=== PATIENT | male | born 1940 | race Caucasian/White ===

== ENCOUNTER 2023-09-11 16:29 | Inpatient (IN) | payer MEDICARE, OTHER, SELFPAY ==
[2023-09-11] VITALS (9 sets, daily range): BP systolic 127–173; BP diastolic 55–101; PULSE 68–70; BMI 25.1; BMI 26.0
--- NOTE | 2023-09-11 13:00 | EDRN ---
Patient arrived from home with Palm in place for neurogenic bladder draining cloudy yellow urine. Patient stated that his Palm is due to be changed this Monday in the office. Palm changed per .
--- NOTE | 2023-09-11 13:07 | ED.GENMED ---
History of Present Illness
General
Chief Complaint: Weakness
Time Seen by Provider: 09/11/23 12:45
Travel History
Have you had any contact with someone who has COVID-19?: No
Do you have any symptoms of coronavirus? Fever > 100 degrees, chills, cough, shortness of breath, sore throat, loss of taste or smell, muscle aches, or headache?: No
History of Present Illness
History of Present Illness:
82yoM hx neurogenic bladder with chronic brunson catheter, atrial fibrillation on eliquis, previous stroke, dysphagia presenting with generalized fatigue for the past 1 week. Patient states when he got up this morning, he 'slipped out of bed' onto the
floor. Patient denies dizziness, striking his head, loss of consciousness, or injury. Patient states EMS was called who put patient back into bed. Patient states as the day went on, he noticed he felt so weak that he could not walk prompting ED
evaluation. Patient reports cough intermittently productive of sputum for the past 1 week with associated shortness of breath worse with exertion. Patient denies chest pain, fever, headache, dizziness, flank pain, or abdominal pain.
Past History
Past History
ED Past Medical History: Arrthythmia (atrial flutter/fibrillation.), CVA (2011), HTN, Hypothyroidism, Psychiatric and Other (Sleep apnea. PE, history of a mini stroke, frequent urination, diverticulosis, arthritis, appeared vision, anemia, frequent
blood transfusions, influenza)
ED Past Surgical History: Orthopedic (Total Knee surgery bilaterally), Tonsilectomy and Other (shirley filter placement; herniorrhapy)
Social History
Tobacco: Non-smoker
Alcohol: Occasional
Drug: None
Personal:
Living: with family
Employment: Retired
Family History
Family History: Other (Family history negative for coronary artery disease, arrhythmia or stroke.); Negative CAD
Phy Exam
Physical Exam
Physical Exam:
General: Alert, no acute distress
Head: NCAT
Eyes: clear conjunctiva
Neck: supple
Cardiac: regular rate, holter monitor in place
Lungs: clear to auscultation bilaterally. No wheezes, rales, or rhonchi. Speaking full unlabored sentences. No respiratory distress. Intermittently coughing during exam
Abdomen: soft, nondistended nontender. No rebound or guarding.
MSK: no lower extremity edema bilaterally. No deformity
Skin: warm, dry
: brunson catheter in place
Neuro: Alert and oriented x3. no focal deficits
Course
Orders/Labs/Results
Orders:
Orders
09/11/23 12:55
EKG [Electrocardiogram (*1)] Urgent
Reason for Study: Fatigue / Weakness
09/11/23 12:56
EKG- Treatment ONCE
09/11/23 13:04
CXR2 [CR Chest - 2 Views ] Urgent
Comment:
Reason For Exam: cough
09/11/23 13:18
CMP [Comprehensive Metabolic Panel] Urgent
Complete Blood Count/With Diff Urgent
Urinalysis Reflex To Culture Urgent
Date Specimen was Collected: 09/11/23
Time Specimen was Collected: 12:56
Urine Microscopic Reflex Cult Urgent
Urine Culture Urgent
[facility] Source: U
Specimen Description:
Date Specimen was Collected: 09/11/23
Time Specimen was Collected: 12:56
09/11/23 13:24
COVID-19 Antigen Urgent
Source: Nasal Swab
09/11/23 14:03
CefTRIAXone [Rocephin] 1,000 mg IV NOW STA
Abnormal Lab Results
09/11/23
13:18
WBC 11.1 H 10^3/uL
(4.8-10.8)
RBC 3.62 L 10^6/uL
(4.70-6.10)
Hgb 11.7 L g/dL
(13.0-18.0)
Hct 36.6 L %
(39.0-52.0)
MCV 101.1 H fL
(80.0-94.0)
MCH 32.3 H pg
(27.0-31.0)
MCHC 32.0 L g/dL
(33.0-37.0)
MPV 11.0 H fL
(7.4-10.4)
Absolute Neuts (auto) 8.8 H 10^3/uL
(1.4-6.5)
Absolute Monos (auto) 0.8 H 10^3/uL
(0.1-0.6)
Neutrophils % 79.3 H %
(42.2-75.2)
Lymphocytes % 11.8 L %
(20.5-51.1)
Glucose 117 H mg/dl
(70-99)
Urine Ketones Trace A
(Negative)
Ur Occult Blood Reflex 4+ A
(Negative)
Urine Nitrite (Reflex) Positive A
(Negative)
Urine Bilirubin 1+ A
(Negative)
Leukocyte Esterase Rfl 2+ A
(Negative)
Urine RBC 26-30 A /HPF
(0-2)
Urine WBC (Reflex) 80-90 A /HPF
(0-5)
Urine Bacteria (Reflex) Many A
(Negative)
Urine Albumin (Reflex) 1+ A
(Neg - Trace)
09/11/23 13:18
09/11/23 13:18
Vital Signs
Initial and Last Documented VS:
Initial Vital Signs
Temp Pulse Resp BP Pulse Ox
97.7 F 62 20 160/58 97
09/11/23 12:33 09/11/23 12:33 09/11/23 12:33 09/11/23 12:33 09/11/23 12:33
Last Documented Vital Signs
Temp Pulse Resp BP Pulse Ox
97.7 F 62 20 160/58 95
09/11/23 12:33 09/11/23 12:33 09/11/23 12:33 09/11/23 12:33 09/11/23 12:48
Comment
Comment:
Patient presents to the Emergency Department with __generalized weakness
Number and Complexity of Problems Addressed at the Encounter
� Chronic conditions affecting care:
� Acute Exacerbation and/or Progression of Chronic Illness:
� Differential Diagnosis includes: UTI, pneumonia, viral infection, STEMI, deconditioning
Amount and/or Complexity of Data to be Reviewed and Analyzed
� I performed an independent evaluation of and my interpretation is:
EKG: SR at 58bpm with NH 158 QTc 473 no acute ischemic changes
Xrays: CXR reviewed, no acute consolidation or focal infiltrate as read by me.
Laboratory Studies: UA consistent with urinary tract infection. WBC 11 with left shift, consistent with infection.
Other:
� Review of other/old records reveals: previous urine culture in March 2023 sensitive to ceftriaxone
� Clinical information was obtained by an independent historian:
� Prescriptions/Medications Considered but not given:
� Further testing considered but not performed:
Risk of Complications and/or Morbidity or Mortality of Patient Management
� Social Determinants of health affecting care:
� Discussion with other providers (PCP, Hospitalists, Consultants, etc):
� Escalation of care including admission/observation vs risk of discharge considered: Labs reviewed, UA consistent with UTI. WBC 11.1. Afebrile, vitals stable. On chart review, previous urine cultures sensitive to ceftriaxone. Patient and patient's
does not remember cephalexin allergy. On chart review, patient tolerated Zosyn in the past. Suspect can tolerate ceftriaxone. Shared decision making. Patient states he is so fatigued that he cannot get out of bed. Will admit for UTI, ambulatory
dysfunction. Discussed with hospitalist who accepts for admission
*Critical Care Note
Total Time (30-74mins, 75-104mins- exclusive of procedures): Not Applicable
ED Attending Note
-
Portions of this chart may have been created with voice recognition software.� Occasional wrong word or��sound alike� substitutions may have occurred due to the inherent limitations of voice recognition software.
Discharge Plan
Departure
Patient Disposition: Admit
Date of Disposition: 09/11/23
Time of Disposition: 14:50
Admit to: Med/Surg
Presentation/result/management discussed w/ accepting MD/DO: Hospitalist
Patient with high blood pressure during this ER visit?: Yes
Covid-19: Negative COVID-19
Discharge Problem:
UTI (urinary tract infection), Ambulatory dysfunction
Prescriptions:
No Action
Glucosamine Sulf-Chondroitin 1 EACH capsule
1 cap PO NOON
atorvastatin 10 MG tablet
10 mg PO HS
divalproex 500 MG tablet,delayed release (DR/EC)
1,250 mg PO QPM
[place] 3 Fish Oil 900-1,400 mg Capsule,Delayed Release(Dr/Ec)
1 cap PO NOON Qty: 0
Eliquis 5 MG tablet
5 mg PO BID
levothyroxine 75 MCG tablet
37.5 mcg PO DAILY@0700 0RF
sotalol 80 MG tablet
80 mg PO BID 0RF
vitamin B complex Tablet
1 tab PO NOON
polyethylene glycol 3350 17 gram Powder In Packet
17 g PO DAILY Qty: 0 0RF
finasteride 5 mg Tablet
5 mg PO DAILY Qty: 0 0RF
nifedipine [Nifedical XL] 30 mg Tablet Extended Release 24hr
30 mg PO DAILY
acetaminophen [Tylenol] 325 mg Tablet
650 mg PO HS
Theragen Tablet
1 tab PO NOON
Visbiome 112.5 billion cell Capsule
1 cap PO NOON
docusate sodium 100 mg capsule
100 mg PO BIDPRN PRN (Reason: constipation)
Referrals:
Maverick Yeboah MD [Family Provider] -
Interventions
Interventions:
*Risk Screen - Suicide Last Done: 09/11/23 12:33
*General Assessment Last Done: 09/11/23 12:33
*Neglect/Abuse Screening Last Done: 09/11/23 12:33
ED- Fall Risk Assessment Last Done: 09/11/23 12:48
*ED COVID-19 Vaccine History Last Done: 09/11/23 12:33
ED- Cardiac Assessment Last Done: 09/11/23 12:48
ED- Neurological Assessment Last Done: 09/11/23 12:48
ED- Pulmonary Assessment Last Done: 09/11/23 12:48
[2023-09-11 13:35] LABS: % Basophils 0.3 % (0-2); % Eosinophils 0.6 % (0-6); % Immature Granulocytes 0.4 % (0-0.5); % Lymphocytes 11.8 % (20.5-51.1); % Monocytes 7.6 % (1.7-9.3); % Neutrophils 79.3 % (42.2-75.2); Absolute Eosinophils 0.1 10^3/uL (0-0.7); Absolute Lymphocytes 1.3 10^3/uL (1.2-3.4); Absolute Monocytes 0.8 10^3/uL (0.1-0.6); Absolute Neutrophils 8.8 10^3/uL (1.4-6.5); Hematocrit 36.6 % (39.0-52.0); Hemoglobin 11.7 g/dL (13.0-18.0); Mean Corpuscular Hgb 32.3 pg (27.0-31.0); Mean Corpuscular Volume 101.1 fL (80.0-94.0); Nucleated Red Blood Cells % 0 % (-); Platelet Count 183 10^3/uL (130-400); Red Blood Cell Count 3.62 10^6/uL (4.70-6.10); Red Cell Dist. Width 12.7 % (11.5-14.5); White Blood Cell Count 11.1 10^3/uL (4.8-10.8)
[2023-09-11 13:40] LABS: Urine Albumin 1+ (Neg - Trace); Urine Bilirubin 1+ (Negative); Urine Character Very Cloudy (Clear); Urine Color Yellow; Urine Glucose Negative (Negative); Urine Ketone Trace (Negative); Urine Leukocyte 2+ (Negative); Urine Nitrite Positive (Negative); Urine Occult Blood 4+ (Negative); Urine Specific Gravity 1.015 (<1.030); Urine Urobilinogen Negative (Neg - 1+)
[2023-09-11 13:47] LABS: ALT (SGPT) 13 U/L (0-50); AST (SGOT) 21 U/L (17-59); Albumin 4.2 g/dl (3.5-5.0); Alkaline Phosphatase 53 U/L (38-126); Blood Urea Nitrogen 16 mg/dl (9-20); Calcium 9.8 mg/dl (8.4-10.2); Carbon Dioxide 29 mmol/L (22-30); Chloride 103 mmol/L (98-107); Estimated Creatinine Clearance 91 ml/min; Glucose 117 mg/dl (70-99); Potassium 3.8 mmol/L (3.5-5.1); Sodium 137 mmol/L (135-145); Total Bilirubin 0.6 mg/dl (0.2-1.3); Total Protein 7.1 g/dl (6.3-8.2); eGFR > 60.00
[2023-09-11 13:58] LABS: COVID-19 Antigen Negative (Negative)
[2023-09-11 14:18] LABS: Urine Bacteria Many (Negative); Urine Red Blood Cell 26-30 /HPF (0-2); Urine White Cell 80-90 /HPF (0-5)
[2023-09-11 14:20] LABS: Urine Urothelial Cell >30 /LPF (FEW)
[2023-09-11] MEDS: ROCEPHIN 1000 MG IV (14:55)
--- NOTE | 2023-09-11 15:32 | HPS.HSE ---
Addendum entered and electronically signed by Joseph Qureshi MD 09/11/23 17:10:
I saw and examined the patient.
The WELLNESS DIRECTOR or PA's note was reviewed and I agree with the note.
Comment: 82-year-old with past medical history neurogenic bladder with chronic Brunson cathete A-fib on Eliquis, CVA, dysphagia, hyperlipidemia, additionally anemia, PVD, neuropathy, hypertension, sleep apnea, bipolar disorder, hypothyroidism, BPH
presented for fatigue and weakness for 1 week. Patient had URI symptoms for the last week. Patient stated he got up and felt very weak and had to sit back down. Also noted some chills. Denied urinary symptoms although has chronic Brunson. Dry
cough upon presentation, respiratory rate 24, afebrile, 95% on room air, normotensive. UA noted to to be positive. X-ray with no acute cardiopulmonary process. RSV, flu negative, COVID-negative. Plan�suspect this is due to urinary infection +/-
URI. Continue antibiotics, follow-up TSH with reflex T4, IV fluids, orthostatic blood pressure
Original Note:
Family Physician
-
Family Physician: Maverick Yeboah
Chief Complaint
-
Generalized weakness
History of Present Illness
82yoM hx neurogenic bladder with chronic brunson catheter, atrial fibrillation on eliquis, previous stroke, dysphagia, hyperlipidemia, iron deficiency anemia, peripheral vascular disease, neuropathy, hypertension sleep apnea, bipolar, hypothyroidism,
BPH, presented to us with generalized fatigue and weakness for 1 week. Patient stated runny nose, congestion, cough for 1 week. Denied chest pain or short of breath. Patient stated some chills. Denied fever. Denied headache, dizziness, syncopal
episode. Patient denied abdominal pain, nausea, vomiting, diarrhea. Patient denied dysuria hematuria.
UA positive for UTI. Chest x-ray negative. Patient received a dose of ceftriaxone in ER. Admitting for further management
Medical History
Past Medical History
Past Medical History: Reports Other
Additional Past Medical History:
Hyperlipidemia
Iron deficiency anemia
Peripheral vascular disease
Chronic constipation
Neuropathy
Hypertension
Obstructive sleep apnea
Goiter
Dysphagia
Bipolar
Hypothyroidism
BPH
Embolic stroke
Urinary retention
A-fib
Depression
Overactive bladder
Past Surgical History: Reports Other
Additional Past Surgical History:
Deviated nasal Spectam surgical correction correction
Hernia repair
Cardiac ablation
IVC filter
Polypectomy
Pulmonary embolism with [place] filter
Social History
Tobacco: Non-smoker
Alcohol: None
Personal:
Living: With Family
Family History
Family History: Not pertinent
Allergies / Home Medications
Allergies reflects when Allergies were last updated in [employer].
Home Medications with original date entered in [employer]
Allergy/Medication List:
Allergies
Allergy/AdvReac Type Severity Reaction Status Date / Time
cephalexin [Cephalexin] Allergy Hives Verified 09/11/23 12:47
tamsulosin [From Flomax] Allergy lightheadness, Verified 09/11/23 12:47
low BP,
and
passing out
vancomycin Allergy Itching Verified 09/11/23 12:47
AND RASH
Home Medications
glucosamine sulfate dipotassium Cl 500 mg-chondroitin 400 mg capsule (Glucosamine Sulfate 2 KCL-Chondroitin) 1 cap PO NOON Supplement 07/16/20
atorvastatin 10 mg tablet 10 mg PO HS High cholesterol 09/25/20
divalproex 500 mg tablet,delayed release 1,250 mg PO QPM Neurological Condition 03/26/21
omega 9-iiz-btw-fish oil 900 mg-1,400 mg capsule,delayed release 1 cap PO NOON Supplement ##0 03/26/21
apixaban 5 mg tablet (Eliquis) 5 mg PO BID Blood clot prevention/tx 06/07/21
levothyroxine 75 mcg tablet 37.5 mcg PO DAILY@0700 Thyroid 06/10/21
sotalol 80 mg tablet 80 mg PO BID 07/27/21
vitamin B complex 1 tab PO NOON Supplement 06/16/22
finasteride 5 mg tablet 5 mg PO DAILY #0 tabs 06/22/22
polyethylene glycol 3350 17 gram oral powder packet 17 g PO DAILY #0 ea 06/22/22
Lactobac no.2-Bifidobac no.1-S. thermo 112.5 billion cell capsule (Visbiome) 1 cap PO NOON 09/11/23
acetaminophen 325 mg tablet (Tylenol) 650 mg PO HS 09/11/23
docusate sodium 100 mg capsule 100 mg PO BIDPRN PRN constipation 09/11/23
nifedipine 30 mg tablet,extended release 24 hr 30 mg PO DAILY 09/11/23
therapeutic multivitamin 1 tab PO NOON 09/11/23
Review of Systems
-
Constitutional: Reports No Symptoms
EENT: Reports No Symptoms and Runny Nose
Respiratory: Reports No Symptoms and Cough
Cardiac: Reports No Symptoms
Abdomen/GI: Reports No Symptoms
: Reports No Symptoms
Musculoskeletal: Reports No Symptoms
Skin: Reports No Symptoms
Neurological: Reports Weakness
Endocrine: Reports No Symptoms
Hematologic/Lymphatic: Reports No Symptoms
Psych: Reports No Symptoms
Physical Exam
Vital Signs
Vital Signs
Temp Pulse Resp BP Pulse Ox
97.7 F 62 20 160/58 95
09/11/23 12:33 09/11/23 12:33 09/11/23 12:33 09/11/23 12:33 09/11/23 12:48
Physical Exam
General: Well Developed, Well Nourished and No Apparent Distress
HEENT: NormoCephalic, Moist mucous membranes and Atraumatic
Respiratory: Clear
Cardiac: S1/S2 and Regular Rhythm; No Murmur or Rub
GI: Soft, Non Tender, Non Distended and Normal Bowel Sounds; No Organomegaly
Rectal: Deferred by Provider
Musculoskeletal: No Clubbing, No Cyanosis and No Edema
Skin: No Rash
Neuro: AO x 3 and Nonfocal/grossly intact
Psych: Calm
Laboratory Results
-
09/11/23 13:18
09/11/23 13:18
Laboratory Results
Total Bilirubin 0.6 mg/dl (0.2-1.3) 09/11/23 13:18
AST 21 U/L (17-59) 09/11/23 13:18
ALT 13 U/L (0-50) 09/11/23 13:18
Alkaline Phosphatase 53 U/L (38-126) 09/11/23 13:18
Data Reviewed
-
Diagnostic Radiology: Report Reviewed by me
Lab Data: Labs Reviewed by me
Impression/Plan
-
# Urinary tract infection
# Neurogenic bladder
# Chronic Brunson
-WBC 11.1
-UA positive for UTI
-Brunson changed in ER
-IV ceftriaxone continued
-Tylenol as needed for fever and pain
# Ambulatory dysfunction
-PT/OT consult
-orthostatics
#runny nose/nasal congestion/cough likely viral
-covid negative
-chest x ray negative
-influenza pending
-obtain RSV
-encourage IS
-Mucinex prn for COUGH
-ctm
# Anemia of chronic disease
-Hemoglobin 11.7
-No active bleeding
-Continue to monitor
h/o CVA:
-cont Eliquis/statin
Essential hypertension
-cont nifedipine
�
Paroxysmal Atrial Fibrillation
-Cont Eliquis/Sotalol
# History of DVT/PE
-IVC filter
#Hypothyroid/Thyromegaly/Nodular Thyroid: TSH normal
-Levothyroxine continued
#Bipolar Disorder: cont Depakote
# History of BPH
-Finasteride continued
FULL/Eliquis
--- NOTE | 2023-09-11 17:30 | EDRN ---
Patient taken to room 412-2 on monitor on stretcher by pilot plant technician.
[2023-09-11] MEDS: DEPAKOTE (12 HR RELEASE) 1250 MG PO (18:14)
[2023-09-11 19:10] LABS: TSH Reflex To Free T4 0.54 uIU/ml (0.47-4.68)
[2023-09-11] MEDS: BETAPACE 80 MG PO (20:01)
[2023-09-11] MEDS: MUCINEX 600 MG PO (20:01)
[2023-09-11] MEDS: ELIQUIS 5 MG PO (20:01)
[2023-09-11] MEDS: LIPITOR 10 MG PO (20:03)
[2023-09-12] VITALS (8 sets, daily range): BP systolic 122–178; BP diastolic 57–79; PULSE 62–72; O2SAT 94–97; BMI 25.7
[2023-09-12] MEDS: SYNTHROID 37.5 MCG PO (05:32)
[2023-09-12 08:22] LABS: Hematocrit 35.3 % (39.0-52.0); Hemoglobin 11.4 g/dL (13.0-18.0); Mean Corp Hgb Conc. 32.3 g/dL (33.0-37.0); Mean Corpuscular Hgb 32.6 pg (27.0-31.0); Mean Corpuscular Volume 100.9 fL (80.0-94.0); Mean Platelet Volume 11.1 fL (7.4-10.4); Platelet Count 168 10^3/uL (130-400); Red Cell Dist. Width 12.6 % (11.5-14.5)
[2023-09-12 08:58] LABS: Blood Urea Nitrogen 18 mg/dl (9-20); Calcium 9.6 mg/dl (8.4-10.2); Carbon Dioxide 30 mmol/L (22-30); Chloride 100 mmol/L (98-107); Estimated Creatinine Clearance 106 ml/min; Glucose 116 mg/dl (70-99); Sodium 139 mmol/L (135-145); eGFR > 60.00
[2023-09-12] MEDS: BETAPACE 80 MG PO ×2 (09:17→19:34)
[2023-09-12] MEDS: MIRALAX 17 GRAMS PO (09:19)
[2023-09-12] MEDS: ELIQUIS 5 MG PO ×2 (09:19→19:35)
[2023-09-12] MEDS: PROSCAR 5 MG PO (09:19)
[2023-09-12] MEDS: MUCINEX 600 MG PO ×2 (09:19→19:35)
[2023-09-12] MEDS: PROCARDIA XL (EXTENDED RELEASE) 30 MG PO (09:19)
--- NOTE | 2023-09-12 10:25 | CM ---
Patient seen bedside, initial assessment completed. Patient resides with his in a two story home with one step to enter, 10 steps to second floor. Patient reports he has a stair glide and walker. [facility] and [facility].
Patient confirms PCP Maverick Yeboah, [facility]. Patient confirms prescription coverage through [employer]. CM will watch for PT/OT evaluations, will continue follow for discharge planning needs.
Plan; home no needs vs VN, watch PT evals.
--- NOTE | 2023-09-12 11:07 | PTCARENOTE ---
Naga davis/debbie. Toileting/changing patient q2 hours.
[2023-09-12] MEDS: THERAGRAN 1 TABLET PO (12:50)
[2023-09-12] MEDS: ROCEPHIN 1000 MG IV (12:50)
[2023-09-12] MEDS: STERILE WATER FOR INJECTION 10 ML IV (12:50)
[2023-09-12] MEDS: VISBIOME 1 CAP PO (12:50)
--- NOTE | 2023-09-12 13:57 | W.PN.HOSP.TC ---
Addendum entered and electronically signed by Joseph Qureshi MD 09/12/23 15:58:
Yes, UTI is likely related to/associated with chronic Palm.
Original Note:
Today's Communication/Plan
-
cont abx; f/u cultures
orthostatics
PT/OT
Assessment / Plan
Assessment / Plan
Physical Exam
General: Well Developed, Well Nourished and No Apparent Distress
HEENT: NormoCephalic, Moist mucous membranes and Atraumatic
Respiratory: Clear
Cardiac: S1/S2 and Regular Rhythm; No Murmur or Rub
GI: Soft, Non Tender, Non Distended and Normal Bowel Sounds; No Organomegaly
Rectal: Deferred by Provider
: Chronic Palm
Musculoskeletal: No Clubbing, No Cyanosis and No Edema
Skin: No Rash
Neuro: AO x 3 and Nonfocal/grossly intact
Psych: Calm
# Urinary tract infection
# Neurogenic bladder
# Chronic Palm
-UA positive; F/u Cultures
-Palm changed in ER
-IV ceftriaxone continued
-Tylenol as needed for fever and pain
# Ambulatory dysfunction
possibly worsened with UTI
-PT/OT consult
-orthostatics
-TSH WNL
#runny nose/nasal congestion/cough likely viral
-covid negative
-chest x ray negative
-COVID, Flu< RSV neg
-incentive orestes
-Mucinex prn for COUGH
# Anemia of chronic disease
-Hemoglobin 11.7
-No active bleeding
-Continue to monitor
h/o CVA:
-cont Eliquis/statin
Essential hypertension
-cont nifedipine
�
Paroxysmal Atrial Fibrillation
-Cont Eliquis/Sotalol
# History of DVT/PE
-IVC filter
#Hypothyroid/Thyromegaly/Nodular Thyroid: TSH normal
-Levothyroxine continued
-TSH WNL
#Bipolar Disorder: cont Depakote
# History of BPH
-Finasteride continued
FULL/Eliquis
Anticipated Discharge: 24 - 48 hours
Subjective/Interval History
-
Date of Service: September 12, 2023
No acute events
Objective Data
-
Labs:
Laboratory Results
09/12/23
08:00
WBC 8.0
Hgb 11.4 L
Hct 35.3 L
Plt Count 168
Sodium 139
Potassium 4.0
Chloride 100
Carbon Dioxide 30
BUN 18
Creatinine 0.6 L
Glucose 116 H
Calcium 9.6
Vital Signs:
Vital Signs
Temp Pulse Resp BP Pulse Ox
98.4 F 70 18 122/57 97
09/12/23 12:25 09/12/23 12:25 09/12/23 12:25 09/12/23 12:25 09/12/23 12:25
I&O
09/11/23 09/12/23 09/13/23
06:59 06:59 06:59
Intake Total 420 / 420
Output Total 400 / 400
Balance 20 / 20
Review of Systems
-
History Source: Patient
All other systems: Reviewed and negative
Data Reviewed
-
Diagnostic Radiology: Image personally visualized and interpreted and Report Reviewed by me
Labs: Labs Reviewed by me
--- NOTE | 2023-09-12 14:25 | PN.CDI ---
CDI
- -
CDI:
Physician Documentation Request
Admit Date: 09/11/23 16:29
Dear Doctor Titus,
Patient admitted with UTI.
09/11 PN, 'Urinary tract infection....Chronic Palm.'
Please clarify the likely relationship between these conditions:
Yes, UTI is related to/associated with chronic Palm.
No, UTI is not related to/associated with chronic Palm ___ but it is due to ___. (Please specify)
Other
Use of terms such as suspected, likely, concern for, or probable (associated with a specific diagnosis that is being evaluated, monitored, or treated as if it exists) are acceptable and can be coded in the inpatient setting, when documented at the
time of discharge.
Thank you,
Barbara KHOURY,RN,CCDS
CDI Specialist
Available via [employer] text
Please use your independent medical judgment in providing your response.
[2023-09-12] MEDS: DEPAKOTE (12 HR RELEASE) 1250 MG PO (17:11)
[2023-09-12] MEDS: TYLENOL 650 MG PO (18:29)
[2023-09-12] MEDS: LIPITOR 10 MG PO (19:34)
[2023-09-13 03:38] VITALS: BP 159/86
--- NOTE | 2023-09-13 04:10 | DOWNTIME ---
There was a [employer] Client Inventory Control Associate Downtime on 09/13/2023 from 0100 to 09/13/2023 at 0322. Downtime documentation of patient's care, including medication administrations, has been reconciled in the electronic record per guidelines. Refer to the
patient's paper chart under the miscellaneous tab to see printed paper medication records and downtime forms.
[2023-09-13] MEDS: SYNTHROID 37.5 MCG PO (05:00)
[2023-09-13 06:19] LABS: Hematocrit 33.5 % (39.0-52.0); Hemoglobin 10.8 g/dL (13.0-18.0); Mean Corp Hgb Conc. 32.2 g/dL (33.0-37.0); Mean Corpuscular Hgb 32.4 pg (27.0-31.0); Mean Corpuscular Volume 100.6 fL (80.0-94.0); Mean Platelet Volume 11.4 fL (7.4-10.4); Platelet Count 169 10^3/uL (130-400); Red Blood Cell Count 3.33 10^6/uL (4.70-6.10); Red Cell Dist. Width 12.6 % (11.5-14.5); White Blood Cell Count 10.6 10^3/uL (4.8-10.8)
[2023-09-13 07:07] LABS: Blood Urea Nitrogen 20 mg/dl (9-20); Calcium 9.5 mg/dl (8.4-10.2); Carbon Dioxide 27 mmol/L (22-30); Chloride 102 mmol/L (98-107); Estimated Creatinine Clearance 106 ml/min; Glucose 88 mg/dl (70-99); Potassium 4.2 mmol/L (3.5-5.1); Sodium 138 mmol/L (135-145); eGFR > 60.00
[2023-09-13 07:35] VITALS: BP 135/82
[2023-09-13] MEDS: MIRALAX 17 GRAMS PO (08:10)
[2023-09-13] MEDS: BETAPACE 80 MG PO ×2 (08:10→19:50)
[2023-09-13] MEDS: ELIQUIS 5 MG PO ×2 (08:11→19:49)
[2023-09-13] MEDS: PROSCAR 5 MG PO (08:11)
[2023-09-13] MEDS: PROCARDIA XL (EXTENDED RELEASE) 30 MG PO (08:11)
[2023-09-13] MEDS: MUCINEX 600 MG PO ×2 (08:11→19:50)
--- NOTE | 2023-09-13 11:40 | CM ---
Patient seen bedside, discussed PT recommendation of SNF. Patient agreeable to referrals sent to [facility], reports his would know where to send other referrals. CM spoke with patients , Alysa, agreeable to referrals to [facility] and [facility].
Referrals sent in [facility]. CM will continue to follow for discharge planning needs.
Plan; SNF pending bed availability.
--- NOTE | 2023-09-13 11:53 | W.PN.HOSP.TC ---
Today's Communication/Plan
-
dc ready, cm aware; can dc on cefdinir to complete 10 day course for complicated uti
Assessment / Plan
Assessment / Plan
Physical Exam
General: Well Developed, Well Nourished and No Apparent Distress
HEENT: NormoCephalic, Moist mucous membranes and Atraumatic
Respiratory: Clear
Cardiac: S1/S2 and Regular Rhythm; No Murmur or Rub
GI: Soft, Non Tender, Non Distended and Normal Bowel Sounds; No Organomegaly
Rectal: Deferred by Provider
: Chronic Palm
Musculoskeletal: No Clubbing, No Cyanosis and No Edema
Skin: No Rash
Neuro: AO x 3 and Nonfocal/grossly intact
Psych: Calm
# Urinary tract infection
# Neurogenic bladder
# Chronic Palm
-UA positive; F/u Cultures�Citrobacter freundii
-Palm changed in ER
-IV ceftriaxone continued�can complete antibiotic course for total 14-day course of antibiotics. Discharge on cefdinir
-Tylenol as needed for fever and pain
# Ambulatory dysfunction
possibly worsened with UTI
-PT/OT consult - SNF
-TSH WNL
#runny nose/nasal congestion/cough likely viral
-covid negative
-chest x ray negative
-COVID, Flu< RSV neg
-incentive orestes
-Mucinex prn for COUGH
# Anemia of chronic disease
-Hemoglobin 11.7
-No active bleeding
-Continue to monitor
h/o CVA:
-cont Eliquis/statin
Essential hypertension
-cont nifedipine
�
Paroxysmal Atrial Fibrillation
-Cont Eliquis/Sotalol
# History of DVT/PE
-IVC filter
#Hypothyroid/Thyromegaly/Nodular Thyroid: TSH normal
-Levothyroxine continued
-TSH WNL
#Bipolar Disorder: cont Depakote
# History of BPH
-Finasteride continued
FULL/Eliquis
DC ready, pending dispo - CM aware
Anticipated Discharge: Within 24 hours
Subjective/Interval History
-
Date of Service: September 13, 2023
No acute events
Objective Data
-
Labs:
Laboratory Results
09/13/23
05:46
WBC 10.6
Hgb 10.8 L
Hct 33.5 L
Plt Count 169
Sodium 138
Potassium 4.2
Chloride 102
Carbon Dioxide 27
BUN 20
Creatinine 0.6 L
Glucose 88
Calcium 9.5
Vital Signs:
Vital Signs
Temp Pulse Resp BP Pulse Ox
97.3 F 64 17 155/82 96
09/13/23 11:26 09/13/23 11:26 09/13/23 11:26 09/13/23 08:11 09/13/23 11:26
I&O
09/12/23 09/13/23 09/14/23
06:59 06:59 06:59
Intake Total 420 / 420 930 / 930
Output Total 400 / 400 1050 / 1050
Balance 20 / 20 -120 / -120
Review of Systems
-
History Source: Patient
All other systems: Not reviewed unless documented
Physical Exam
-
General: Well Developed, Well Nourished and No Apparent Distress
HEENT: Normocephalic and Atraumatic
Respiratory: Clear to Auscultation; Negative Wheezes or Rhonchi
Cardiac: Regular Rhythm and S1/S2; Negative Murmur
GI: Soft, Nontender, Nondistended and Normal Bowel Sounds
Genito-urinary: Palm
Musculoskeletal: No Clubbing, No Cyanosis and No Edema
Skin: Warm
Neuro: Awake
Psych: Calm
Data Reviewed
-
Diagnostic Radiology: Image personally visualized and interpreted and Report Reviewed by me
Labs: Labs Reviewed by me
[2023-09-13] MEDS: THERAGRAN 1 TABLET PO (12:17)
[2023-09-13] MEDS: VISBIOME 1 CAP PO (12:17)
[2023-09-13] MEDS: ROCEPHIN 1000 MG IV (14:00)
[2023-09-13] MEDS: STERILE WATER FOR INJECTION 10 ML IV (14:01)
[2023-09-13] MEDS: DEPAKOTE (12 HR RELEASE) 1250 MG PO (17:09)
[2023-09-13] MEDS: COLACE 100 MG PO (19:49)
[2023-09-13] MEDS: LIPITOR 10 MG PO (19:49)
[2023-09-13 20:00] VITALS: BP 166/76
[2023-09-13 23:37] VITALS: BP 178/81
[2023-09-14 03:31] VITALS: BP 176/80
[2023-09-14] MEDS: SYNTHROID 37.5 MCG PO (05:23)
[2023-09-14 06:14] LABS: Hematocrit 33.7 % (39.0-52.0); Hemoglobin 10.9 g/dL (13.0-18.0); Mean Corp Hgb Conc. 32.3 g/dL (33.0-37.0); Mean Corpuscular Hgb 32.3 pg (27.0-31.0); Mean Platelet Volume 11.2 fL (7.4-10.4); Platelet Count 168 10^3/uL (130-400); Red Blood Cell Count 3.37 10^6/uL (4.70-6.10); Red Cell Dist. Width 12.6 % (11.5-14.5); White Blood Cell Count 8.6 10^3/uL (4.8-10.8)
[2023-09-14 06:42] LABS: Blood Urea Nitrogen 22 mg/dl (9-20); Calcium 9.4 mg/dl (8.4-10.2); Carbon Dioxide 25 mmol/L (22-30); Chloride 103 mmol/L (98-107); Estimated Creatinine Clearance 106 ml/min; Glucose 90 mg/dl (70-99); Potassium 4.2 mmol/L (3.5-5.1); Sodium 136 mmol/L (135-145); eGFR > 60.00
[2023-09-14 08:23] VITALS: BP 155/68
[2023-09-14] MEDS: MIRALAX 17 GRAMS PO (08:29)
[2023-09-14] MEDS: BETAPACE 80 MG PO (08:29)
[2023-09-14] MEDS: PROSCAR 5 MG PO (08:29)
[2023-09-14] MEDS: ELIQUIS 5 MG PO (08:30)
[2023-09-14] MEDS: MUCINEX 600 MG PO (08:30)
[2023-09-14] MEDS: PROCARDIA XL (EXTENDED RELEASE) 30 MG PO (08:30)
[2023-09-14 08:49] VITALS: BP 171/80; BP 175/65; PULSE 65; PULSE 75
[2023-09-14 11:30] VITALS: BP 144/67
--- NOTE | 2023-09-14 11:36 | W.PN.HOSP.TC ---
Addendum entered and electronically signed by Joseph Qureshi MD 09/15/23 15:33:
[id number]
Original Note:
Today's Communication/Plan
-
complete abx course - cefdinir 10 days total
F/u Clavicular bump; Nontender; non erythematous; f/u outpatient; no fx on XR
Assessment / Plan
Assessment / Plan
Physical Exam
General: Well Developed, Well Nourished and No Apparent Distress
HEENT: NormoCephalic, Moist mucous membranes and Atraumatic
Respiratory: Clear
Cardiac: S1/S2 and Regular Rhythm; No Murmur or Rub
GI: Soft, Non Tender, Non Distended and Normal Bowel Sounds; No Organomegaly
Rectal: Deferred by Provider
: Chronic Palm
Musculoskeletal: No Clubbing, No Cyanosis and No Edema
Skin: No Rash
Neuro: AO x 3 and Nonfocal/grossly intact
Psych: Calm
# Urinary tract infection
# Neurogenic bladder
# Chronic Palm
-UA positive; F/u Cultures�Citrobacter freundii
-Palm changed in ER
-IV ceftriaxone continued�can complete antibiotic course for total 10-day course of antibiotics. Discharge on cefdinir
-Tylenol as needed for fever and pain
# Ambulatory dysfunction
possibly worsened with UTI
-PT/OT consult - SNF
-TSH WNL
#runny nose/nasal congestion/cough likely viral
-improving
-covid negative
-chest x ray negative
-COVID, Flu, RSV neg
-incentive orestes
-Mucinex prn for COUGH
#Right Clavicular lump
-possibly lipoma
-XR without any fx
-f/u outpatient for further diagnostic tools
# Anemia of chronic disease
-Hemoglobin 11.7
-No active bleeding
-Continue to monitor
h/o CVA:
-cont Eliquis/statin
Essential hypertension
-cont nifedipine
�
Paroxysmal Atrial Fibrillation
-Cont Eliquis/Sotalol
# History of DVT/PE
-IVC filter
#Hypothyroid/Thyromegaly/Nodular Thyroid: TSH normal
-Levothyroxine continued
-TSH WNL
#Bipolar Disorder: cont Depakote
# History of BPH
-Finasteride continued
FULL/Eliquis
More than 30 minutes spent in discharge including
Final examination of the patient
Summarizing hospital stay
Instructions for continuing care to all relevant caregivers
Preparation of discharge records, prescriptions, and referral forms
Total time spent (35 in minutes):
Anticipated Discharge: Today
Subjective/Interval History
-
Date of Service: September 14, 2023
no acute events
Objective Data
-
Labs:
Laboratory Results
09/14/23
05:50
WBC 8.6
Hgb 10.9 L
Hct 33.7 L
Plt Count 168
Sodium 136
Potassium 4.2
Chloride 103
Carbon Dioxide 25
BUN 22 H
Creatinine 0.6 L
Glucose 90
Calcium 9.4
Vital Signs:
Vital Signs
Temp Pulse Resp BP Pulse Ox
97.3 F 68 18 144/67 98
09/14/23 11:30 09/14/23 11:30 09/14/23 11:30 09/14/23 11:30 09/14/23 11:30
I&O
09/13/23 09/14/23 09/15/23
06:59 06:59 06:59
Intake Total 930 / 930 600 / 600
Output Total 1050 / 1050 975 / 975
Balance -120 / -120 -375 / -375
Review of Systems
-
History Source: Patient
All other systems: Not reviewed unless documented
Physical Exam
-
General: Well Developed, Well Nourished and No Apparent Distress
HEENT: Normocephalic and Atraumatic
Respiratory: Clear to Auscultation; Negative Wheezes or Rhonchi
Cardiac: Regular Rhythm and S1/S2; Negative Murmur
GI: Soft, Nontender, Nondistended and Normal Bowel Sounds
Genito-urinary: Palm
Musculoskeletal: No Clubbing, No Cyanosis, No Edema and Other (right clavicular lump - possibly lipoma )
Skin: Warm
Neuro: Awake
Psych: Calm
Data Reviewed
-
Diagnostic Radiology: Image personally visualized and interpreted and Report Reviewed by me
Labs: Labs Reviewed by me
--- NOTE | 2023-09-14 11:40 | W.DS.TRANS ---
DC Summary - Supervisor Diagnostic
-
Discharge Instructions:
Discharge Diagnosis/Procedures # Urinary tract infection
# Neurogenic bladder
# Chronic Palm
Diet Low Cholesterol,Low Fat
Activity As tolerated
Instructions:
Stand-Alone Forms:
Changes to Home Medications: Yes
Discharge Medications:
DC Medications w/original date entered in [facility]
glucosamine sulfate dipotassium Cl 500 mg-chondroitin 400 mg capsule (Glucosamine Sulfate 2 KCL-Chondroitin) 1 cap PO NOON Supplement 07/16/20
atorvastatin 10 mg tablet 10 mg PO HS High cholesterol 09/25/20
divalproex 500 mg tablet,delayed release 1,250 mg PO QPM Neurological Condition 03/26/21
omega 2-vsb-hvp-fish oil 900 mg-1,400 mg capsule,delayed release 1 cap PO NOON Supplement ##0 03/26/21
apixaban 5 mg tablet (Eliquis) 5 mg PO BID Blood clot prevention/tx 06/07/21
levothyroxine 75 mcg tablet 37.5 mcg (1/2 x 75 mcg) PO DAILY@0700 Thyroid 06/10/21
sotalol 80 mg tablet 80 mg PO BID 07/27/21
vitamin B complex 1 tab PO NOON supplement 06/16/22
finasteride 5 mg tablet 5 mg PO DAILY #0 tabs 06/22/22
polyethylene glycol 3350 17 gram oral powder packet 17 g PO DAILY #0 ea 06/22/22
Lactobac no.2-Bifidobac no.1-S. thermo 112.5 billion cell capsule (Visbiome) 1 cap PO NOON probiotic 09/11/23
acetaminophen 325 mg tablet (Tylenol) 650 mg PO HS pain 09/11/23
docusate sodium 100 mg capsule 100 mg PO BIDPRN PRN constipation 09/11/23
nifedipine 30 mg tablet,extended release 24 hr 30 mg PO DAILY blood pressure 09/11/23
therapeutic multivitamin 1 tab PO NOON supplement 09/11/23
cefdinir 300 mg capsule 300 mg PO BID 8 days #16 caps 09/13/23
Home Medication Changes
cefdinir 300 mg capsule 300 mg PO BID 8 days #16 caps 09/13/23
Pending Results: No
--- NOTE | 2023-09-14 12:41 | CM ---
Patient seen bedside, discussed [facility] able to accept patient, WC van scheduled for 5:00 p.m. pick up driver. IMM reviewed, signed, placed in patients chart. CM spoke with patients , Alysa, to provide transport number to call for WC van payment, $90.
CM will continue to follow for discharge planning needs.
Plan; [facility], 5:00 p.m. WC Van transport.
[facility]
Report: [phone]
[2023-09-14] MEDS: VISBIOME 1 CAP PO (13:05)
[2023-09-14] MEDS: STERILE WATER FOR INJECTION 10 ML IV (13:05)
[2023-09-14] MEDS: THERAGRAN 1 TABLET PO (13:05)
[2023-09-14] MEDS: ROCEPHIN 1000 MG IV (13:05)
--- NOTE | 2023-09-14 14:21 | PTCARENOTE ---
Report called to [facility] rehab. Patient being picked up at 1700 today.
[2023-09-14 15:10] VITALS: BP 118/52
--- NOTE | 2023-09-14 17:27 | PTCARENOTE ---
Report called to [facility] earlier today. IV and tele removed. Chart and discharge packet sent with patient. Patient denies questions at this time.
== END 2023-09-14 17:29 | DRG 700 ==
LOC: 4 EAST ACU 16:29
PROVIDERS: Emergency Medicine; Registered Nurse; ADMITTING PHYSICIAN Internal Medicine; EMERGENCY PHYSICIAN Emergency Medicine; FAMILY PHYSICIAN Family Medicine
DX: T83.511A Infection and inflammatory reaction due to indwelling urethral catheter, initial encounter (principal); N39.0 Urinary tract infection, site not specified; N31.9 Neuromuscular dysfunction of bladder, unspecified; D63.8 Anemia in other chronic diseases classified elsewhere; I10 Essential (primary) hypertension; I48.0 Paroxysmal atrial fibrillation; E03.9 Hypothyroidism, unspecified; E04.2 Nontoxic multinodular goiter; F31.9 Bipolar disorder, unspecified; Y84.6 Urinary catheterization as the cause of abnormal reaction of the patient, or of later complication, without mention of misadventure at the time of the procedure; Z11.52 Encounter for screening for COVID-19
CPT/HCPCS: 71046; 73000; 80048; 80053; 81003; 81015; 84443; 85025; 85027; 87077; 87086; 87186; 87502; 87807; 87811; 93005; 96374; 97162; 97167; 99285

== ENCOUNTER → 2023-09-26 11:38 | Outpatient (REF) | payer OTHER, MEDICARE, SELFPAY ==
[2023-09-26 12:04] LABS: % Basophils 0.4 % (0-2); % Eosinophils 1.8 % (0-6); % Immature Granulocytes 0.4 % (0-0.5); % Lymphocytes 16.2 % (20.5-51.1); % Neutrophils 72.2 % (42.2-75.2); Absolute Eosinophils 0.2 10^3/uL (0-0.7); Absolute Lymphocytes 1.7 10^3/uL (1.2-3.4); Absolute Monocytes 0.9 10^3/uL (0.1-0.6); Absolute Neutrophils 7.4 10^3/uL (1.4-6.5); Hemoglobin 11.4 g/dL (13.0-18.0); Mean Corp Hgb Conc. 31.7 g/dL (33.0-37.0); Mean Corpuscular Hgb 32.2 pg (27.0-31.0); Mean Corpuscular Volume 101.7 fL (80.0-94.0); Mean Platelet Volume 11.2 fL (7.4-10.4); Nucleated Red Blood Cells % 0 % (-); Platelet Count 219 10^3/uL (130-400); Red Blood Cell Count 3.54 10^6/uL (4.70-6.10); Red Cell Dist. Width 12.5 % (11.5-14.5); White Blood Cell Count 10.3 10^3/uL (4.8-10.8)
[2023-09-26 12:27] LABS: ALT (SGPT) 11 U/L (0-50); AST (SGOT) 18 U/L (17-59); Albumin 3.7 g/dl (3.5-5.0); Alkaline Phosphatase 54 U/L (38-126); Blood Urea Nitrogen 17 mg/dl (9-20); Calcium 9.5 mg/dl (8.4-10.2); Carbon Dioxide 27 mmol/L (22-30); Chloride 99 mmol/L (98-107); Glucose 99 mg/dl (70-99); Potassium 4.1 mmol/L (3.5-5.1); Sodium 137 mmol/L (135-145); Total Bilirubin 0.5 mg/dl (0.2-1.3); Total Protein 6.5 g/dl (6.3-8.2); eGFR > 60.00
== END ==
LOC: OLABP 11:38
PROVIDERS: ATTENDING PHYSICIAN Family Medicine
DX: Z86.73 Personal history of transient ischemic attack (TIA), and cerebral infarction without residual deficits (principal); I48.0 Paroxysmal atrial fibrillation; I69.351 Hemiplegia and hemiparesis following cerebral infarction affecting right dominant side; N39.0 Urinary tract infection, site not specified; M62.81 Muscle weakness (generalized)
CPT/HCPCS: 36415; 80053; 85025

== ENCOUNTER 2023-10-01 19:18 | Emergency (ER) | payer MEDICARE, OTHER, SELFPAY ==
[2023-10-01 19:21] VITALS: BP 129/62
--- NOTE | 2023-10-01 19:26 | ED.GENMED ---
History of Present Illness
General
Chief Complaint: Fever
Source: patient
Exam Limitations: none
Time Seen by Provider: 10/01/23 19:22
Travel History
Have you had any contact with someone who has COVID-19?: No
Do you have any symptoms of coronavirus? Fever > 100 degrees, chills, cough, shortness of breath, sore throat, loss of taste or smell, muscle aches, or headache?: No
History of Present Illness
History of Present Illness:
See MDM
Past History
Past History
ED Past Medical History: Arrthythmia (atrial flutter/fibrillation.), CVA (2011), HTN, Hypothyroidism, Psychiatric and Other (Sleep apnea. PE, history of a mini stroke, frequent urination, diverticulosis, arthritis, appeared vision, anemia, frequent
blood transfusions, influenza)
ED Past Surgical History: Orthopedic (Total Knee surgery bilaterally), Tonsilectomy and Other (shirley filter placement; herniorrhapy)
Social History
Tobacco: Non-smoker
Alcohol: Occasional
Drug: None
Personal:
Living: with family
Employment: Retired
Family History
Family History: Other (Family history negative for coronary artery disease, arrhythmia or stroke.); Negative CAD
Phy Exam
Physical Exam
Physical Exam:
See MDM
Course
Orders/Labs/Results
Orders:
Orders
10/01/23 19:40
COVID-19 Antigen Urgent
Source: Nasal Swab
Complete Blood Count/With Diff Urgent
Comprehensive Metabolic Panel Urgent
Lactic Acid Q4H
Comment: CANCEL 2nd LACTIC ACID IF 1st LACTIC ACID IS LESS THAN 2
Blood Culture Q30M
[facility] Source: Blood/Venous
Specimen Description:
Blood Culture Q30M
[facility] Source: Blood/Venous
Specimen Description:
Influenza A+B Rapid Molecular Urgent
[facility] Source: Nasal Swab
Specimen Description:
10/01/23 20:36
CR Chest Portable - 1 View Urgent
Comment:
Reason For Exam: SOB, fever
Reason Study Needs to be Portable: Patient Unstable
10/01/23 23:30
Lactic Acid Q4H
Comment: CANCEL 2nd LACTIC ACID IF 1st LACTIC ACID IS LESS THAN 2
Abnormal Lab Results
10/01/23
19:40
WBC 12.5 H 10^3/uL
(4.8-10.8)
RBC 3.49 L 10^6/uL
(4.70-6.10)
Hgb 11.4 L g/dL
(13.0-18.0)
Hct 34.9 L %
(39.0-52.0)
MCV 100.0 H fL
(80.0-94.0)
MCH 32.7 H pg
(27.0-31.0)
MCHC 32.7 L g/dL
(33.0-37.0)
MPV 10.6 H fL
(7.4-10.4)
Absolute Neuts (auto) 10.5 H 10^3/uL
(1.4-6.5)
Absolute Lymphs (auto) 0.8 L 10^3/uL
(1.2-3.4)
Absolute Monos (auto) 1.1 H 10^3/uL
(0.1-0.6)
Neutrophils % 84.6 H %
(42.2-75.2)
Lymphocytes % 6.0 L %
(20.5-51.1)
Sodium 131 L mmol/L
(135-145)
Chloride 97 L mmol/L
(98-107)
Glucose 162 H mg/dl
(70-99)
Lactic Acid 2.2 H mmol/L
(0.7-2.0)
SARS-CoV-2 Antigen Positive A
(Negative)
10/01/23 19:40
10/01/23 19:40
Vital Signs
Initial and Last Documented VS:
Initial Vital Signs
BP
129/62
10/01/23 19:21
Last Documented Vital Signs
Temp Pulse Resp BP Pulse Ox
99 F 64 22 119/61 94
10/01/23 19:30 10/01/23 21:45 10/01/23 21:45 10/01/23 21:00 10/01/23 20:45
MDM/Problems Addressed
Differential Diagnosis Includes:
HPI and MDM Narrative:
82-year-old male presenting for evaluation of fever. Per EMS, routine vital signs showed a temperature of 100. Patient does admit to weakness and fatigue. He denies any source of the fever. He was recently admitted last month for UTI. He
finished a course of cefdinir. He has a chronic indwelling Palm catheter. He denies change in his urine coloration. He denies abdominal pain
Given his age and complaint, will obtain blood cultures lactic acid. Will recheck urine culture. Will look for source of infection.
Physical exam
General: Weak and frail
HEENT: protecting airway
Neck: supple
CV: No evidence of cyanosis
Resp: No accessory muscle use. Lungs clear
Abd: Non-distended and nontender
Extremities: No deformities
Neuro: alert
Psych: Normal affect
Skin: Intact
Problems Addressed including Acute and Chronic Conditions affecting care:
1. Fever
Acuity: acute
Prognosis: stable
Details: Will obtain chest x-ray, urine culture and viral testing.
Updates
Patient found to be COVID-positive. Chest x-ray clear. Patient feels comfortable going home
Differential Diagnosis (but not limited to): Pneumonia, UTI
Testing considered: CT abdomen/pelvis but no tenderness noted
Drug therapy (if applicable): OTC meds, please see d/c instruction regarding Rx drugs
Amount and/or Complexity of Data Reviewed
Clinical info obtained from: Patient
External data reviewed: Recently admitted for UTI and finished course of Ceftin
Labs I independently reviewed (but not limited to): Mild leukocytosis
Radiology: X-ray independently reviewed: Chest x-ray clear
Pulse Ox: not hypoxic
EKG independently reviewed: N/A
Bullion Weigher: N/A
Critical Care: N/A
Risk of Complication:
Social Determinants of health: Good social support
Discussed with other providers: N/A
Escalation of Care includes Admit/Obs: After being observed in the Emergency Department, pt stable for discharge.
Occasional wrong word or 'sound a like' substitutions may have occurred due to the inherent limitations of voice recognition software. Read the chart carefully and recognize, using context, where substitutions have occurred.
*Critical Care Note
Total Time (30-74mins, 75-104mins- exclusive of procedures): Not Applicable
ED Attending Note
-
Portions of this chart may have been created with voice recognition software.� Occasional wrong word or��sound alike� substitutions may have occurred due to the inherent limitations of voice recognition software.
Discharge Plan
Departure
Patient Disposition: Home (Routine Discharge)
Date of Disposition: 10/01/23
Time of Disposition: 22:06
Patient with high blood pressure during this ER visit?: No
Discharge Problem:
COVID
Instructions: COVID-19 ED
Prescriptions:
No Action
Glucosamine Sulf-Chondroitin 1 EACH capsule
1 cap PO NOON
atorvastatin 10 MG tablet
10 mg PO HS
divalproex 500 MG tablet,delayed release (DR/EC)
1,250 mg PO QPM
omega 8-svl-jqr-fish oil 900-1,400 mg Capsule,Delayed Release(Dr/Ec)
1 cap PO NOON Qty: 0
Eliquis 5 MG tablet
5 mg PO BID
levothyroxine 75 MCG tablet
37.5 mcg PO DAILY@0700 0RF
sotalol 80 MG tablet
80 mg PO BID 0RF
vitamin B complex Tablet
1 tab PO NOON
polyethylene glycol 3350 17 gram Powder In Packet
17 g PO DAILY Qty: 0 0RF
finasteride 5 mg Tablet
5 mg PO DAILY Qty: 0 0RF
nifedipine 30 mg Tablet Extended Release 24hr
30 mg PO DAILY
acetaminophen [Tylenol] 325 mg Tablet
650 mg PO HS
therapeutic multivitamin Tablet
1 tab PO NOON
Visbiome 112.5 billion cell Capsule
1 cap PO NOON
docusate sodium 100 mg capsule
100 mg PO BIDPRN PRN (Reason: constipation)
cefdinir 300 mg capsule
300 mg PO BID 8 Days Qty: 16 0RF
Referrals:
Maverick Yeboah MD [Family Provider] -
Activity Restrictions/Additional Instructions:
Please return for any worsening symptoms.
You may return at any time if you have further concerns.
Please follow up with your doctor at the first available appointment, preferably this week.
Thank you for choosing [facility].
Interventions
Interventions:
*General Assessment Last Done: 10/01/23 19:31
*ED COVID-19 Vaccine History Last Done: 10/01/23 19:31
ED- Neurological Assessment Last Done: 10/01/23 20:50
ED-Skin Assessment Last Done: 10/01/23 20:50
Discharge Date and Time
Print Language: BELARUSIAN
[2023-10-01 19:29] VITALS: BMI 25.9
[2023-10-01 19:30] VITALS: BP 129/62
[2023-10-01 19:52] LABS: % Basophils 0.3 % (0-2); % Eosinophils 0.3 % (0-6); % Immature Granulocytes 0.3 % (0-0.5); % Monocytes 8.5 % (1.7-9.3); % Neutrophils 84.6 % (42.2-75.2); Absolute Lymphocytes 0.8 10^3/uL (1.2-3.4); Absolute Monocytes 1.1 10^3/uL (0.1-0.6); Absolute Neutrophils 10.5 10^3/uL (1.4-6.5); Hematocrit 34.9 % (39.0-52.0); Hemoglobin 11.4 g/dL (13.0-18.0); Mean Corp Hgb Conc. 32.7 g/dL (33.0-37.0); Mean Corpuscular Hgb 32.7 pg (27.0-31.0); Mean Platelet Volume 10.6 fL (7.4-10.4); Nucleated Red Blood Cells % 0 % (-); Platelet Count 206 10^3/uL (130-400); Red Blood Cell Count 3.49 10^6/uL (4.70-6.10); Red Cell Dist. Width 12.7 % (11.5-14.5); White Blood Cell Count 12.5 10^3/uL (4.8-10.8)
[2023-10-01 19:54] LABS: COVID-19 Antigen Positive (Negative)
[2023-10-01 20:00] VITALS: BP 114/54
[2023-10-01 20:04] LABS: Lactic Acid 2.2 mmol/L (0.7-2.0)
[2023-10-01 20:06] LABS: ALT (SGPT) 13 U/L (0-50); AST (SGOT) 19 U/L (17-59); Albumin 3.8 g/dl (3.5-5.0); Alkaline Phosphatase 54 U/L (38-126); Blood Urea Nitrogen 18 mg/dl (9-20); Calcium 9.2 mg/dl (8.4-10.2); Carbon Dioxide 26 mmol/L (22-30); Chloride 97 mmol/L (98-107); Estimated Creatinine Clearance 79 ml/min; Glucose 162 mg/dl (70-99); Potassium 3.6 mmol/L (3.5-5.1); Sodium 131 mmol/L (135-145); Total Bilirubin 0.4 mg/dl (0.2-1.3); Total Protein 6.7 g/dl (6.3-8.2); eGFR > 60.00
[2023-10-01 21:00] VITALS: BP 119/61
== END 2023-10-01 22:23 | disposition home or self-care (01) ==
LOC: EMR 19:18
PROVIDERS: EMERGENCY PHYSICIAN Student in an Organized Health Care Education/Training Program; FAMILY PHYSICIAN Family Medicine
DX: U07.1 COVID-19 (principal); R53.1 Weakness; R53.83 Other fatigue; Z11.52 Encounter for screening for COVID-19; I48.91 Unspecified atrial fibrillation; I48.92 Unspecified atrial flutter; I10 Essential (primary) hypertension; E03.9 Hypothyroidism, unspecified; G47.30 Sleep apnea, unspecified; M19.90 Unspecified osteoarthritis, unspecified site; D64.9 Anemia, unspecified; K57.90 Diverticulosis of intestine, part unspecified, without perforation or abscess without bleeding; Z79.01 Long term (current) use of anticoagulants; Z86.73 Personal history of transient ischemic attack (TIA), and cerebral infarction without residual deficits; Z86.711 Personal history of pulmonary embolism; Z87.440 Personal history of urinary (tract) infections; Z88.1 Allergy status to other antibiotic agents; Z88.8 Allergy status to other drugs, medicaments and biological substances
CPT/HCPCS: 99283; 71045; 80053; 83605; 85025; 87040; 87502; 87811

== ENCOUNTER → 2023-10-09 12:03 | Outpatient (REF) | payer OTHER, MEDICARE, SELFPAY ==
[2023-10-09 13:14] LABS: % Basophils 0.4 % (0-2); % Eosinophils 3.8 % (0-6); % Immature Granulocytes 0.5 % (0-0.5); % Monocytes 7.4 % (1.7-9.3); % Neutrophils 63.9 % (42.2-75.2); Absolute Eosinophils 0.4 10^3/uL (0-0.7); Absolute Immature Granulocytes 0.1 10^3/uL (0-0.05); Absolute Lymphocytes 2.4 10^3/uL (1.2-3.4); Absolute Monocytes 0.7 10^3/uL (0.1-0.6); Absolute Neutrophils 6.3 10^3/uL (1.4-6.5); Hematocrit 36.8 % (39.0-52.0); Hemoglobin 11.4 g/dL (13.0-18.0); Mean Corpuscular Hgb 31.6 pg (27.0-31.0); Mean Corpuscular Volume 101.9 fL (80.0-94.0); Mean Platelet Volume 11.4 fL (7.4-10.4); Nucleated Red Blood Cells % 0 % (-); Platelet Count 260 10^3/uL (130-400); Red Blood Cell Count 3.61 10^6/uL (4.70-6.10); Red Cell Dist. Width 12.5 % (11.5-14.5); White Blood Cell Count 9.9 10^3/uL (4.8-10.8)
[2023-10-09 13:53] LABS: Blood Urea Nitrogen 20 mg/dl (9-20); Calcium 9.6 mg/dl (8.4-10.2); Carbon Dioxide 27 mmol/L (22-30); Chloride 105 mmol/L (98-107); Glucose 94 mg/dl (70-99); Potassium 4.5 mmol/L (3.5-5.1); Sodium 139 mmol/L (135-145); eGFR > 60.00
== END ==
LOC: OLABP 12:03
PROVIDERS: ATTENDING PHYSICIAN Family Medicine
DX: Z86.73 Personal history of transient ischemic attack (TIA), and cerebral infarction without residual deficits (principal); I48.0 Paroxysmal atrial fibrillation; I69.351 Hemiplegia and hemiparesis following cerebral infarction affecting right dominant side; N39.0 Urinary tract infection, site not specified; M62.81 Muscle weakness (generalized)
CPT/HCPCS: 36415; 80048; 85025

== ENCOUNTER 2023-12-09 17:54 | Inpatient (IN) | payer MEDICARE, OTHER, SELFPAY ==
[2023-12-09] VITALS (9 sets, daily range): BP systolic 142–223; BP diastolic 68–90; BMI 25.2
--- NOTE | 2023-12-09 09:11 | ED.GENMED ---
History of Present Illness
General
Chief Complaint: Fatigue
Source: patient and ambulance crew
Exam Limitations: none
Time Seen by Provider: 12/09/23 09:06
Nursing documentation reviewed up to this point in time: agreed with
History of Present Illness
History of Present Illness:
83 yo male from home for general fatigue and malodorous urine per home P/T personnel. Has indwelling Palm catheter which was changed 2 days ago by VN and pt was started on Bactrim.
Pt states 'I',m so weak, I have no strength.' 'I feel so tired all the time.' Pt denies CP, SOB, Abd pain, denies vomiting but does feel nauseous. Denies fever/chills. He has had a mild intermittent cough productive of clear sputum for '5 weeks.'
Pt lives with who he says takes good care of him. He ambulates with Rollator at baseline.
Past History
Past History
ED Past Medical History: Arrthythmia (atrial flutter/fibrillation.), CVA (2011), HTN, Hypothyroidism, Psychiatric and Other (Sleep apnea. PE, history of a mini stroke, frequent urination, diverticulosis, arthritis, appeared vision, anemia, frequent
blood transfusions, influenza)
ED Past Surgical History: Orthopedic (Total Knee surgery bilaterally), Tonsilectomy and Other (shirley filter placement; herniorrhapy)
Social History
Tobacco: Non-smoker
Alcohol: Occasional
Drug: None
Personal:
Living: with family
Employment: Retired
Family History
Family History: Other (Family history negative for coronary artery disease, arrhythmia or stroke.); Negative CAD
Review of Systems
Review of Systems
Allergies reviewed?: Yes
Other source history: ambulance crew
All Other Systems: ROS reviewed and negative except as documented in HPI and ROS
Constitutional: Reports fatigue; Denies fever or chills
EENT: Denies sore throat
Respiratory: Reports cough; Denies trouble breathing
Cardiac: Denies chest pain
ABD/GI: Reports nausea and anorexia; Denies abdominal pain, vomiting, diarrhea, constipated, bloody stools or black stools
: Reports other (Indwelling Palm catheter)
Musculoskeletal: Denies edema
Skin: Reports no symptoms
Neurological: Reports weakness (generalized); Denies dizzy, headache or numbness
Phy Exam
Physical Exam
Physical Exam:
GENERAL: No acute distress. A&Ox3.
CONSTITUTIONAL: Afebrile.
EYES: PERRL, conjunctivae normal
ENMT: dry mucus membranes, Pharynx nl
RESPIRATORY: Regular respirations, nonlabored, lungs clear.
CARDIOVASCULAR: Regular rate and rhythm, no murmurs, no rubs.
GI: Soft, nontender, normal BS
Rectal: Stool light brown, heme neg
MUSCULOSKELETAL: Well perfused. No edema
SKIN: Warm, dry, pale
PSYCH: Depresses mood and affect. Well kept, interactive and appropriate
NEUROLOGIC: Awake, alert and oriented. Speech clear, No focal neurological deficits
Course
Orders/Labs/Results
Orders:
Orders
12/09/23 09:23
CXR2 [CR Chest - 2 Views ] Urgent
Comment:
Reason For Exam: cough
12/09/23 09:28
CMP [Comprehensive Metabolic Panel] Urgent
Complete Blood Count/With Diff Urgent
Monotest Urgent
Comment: ADD ON
12/09/23 09:31
0.9% Sodium Chloride 1000 ml [Nss] 1,000 ml IV BOLUS
12/09/23 09:32
Troponin I Urgent
12/09/23 09:44
Urinalysis Reflex To Culture Urgent
Date Specimen was Collected: 12/09/23
Time Specimen was Collected: 09:39
Urine Microscopic Reflex Cult Urgent
Urine Culture Urgent
[facility] Source: U
Specimen Description:
Date Specimen was Collected: 12/09/23
Time Specimen was Collected: 09:39
12/09/23 10:12
Add On- LAB Urgent
Tests Added?: mono test
12/09/23 10:13
Electrocardiogram (*1) Urgent
Reason for Study: Fatigue / Weakness
EKG- Treatment ONCE
12/09/23 11:20
CT Head W/o Iv Contrast Urgent
Comment:
Reason For Exam: general weakness, confusion
12/09/23 15:23
NIFEdipine EXTENDED RELEASE [Procardia Xl (Extended Release)] 30 mg PO NOW STA
12/09/23 16:53
Aztreonam [Azactam] 2,000 mg IV NOW STA
12/09/23 17:03
Sterile Water [Sterile Water For Injection] 10 ml .ROUTE .[facility]
12/09/23 17:30
COVID-19 Antigen Routine
Source: Nasal Swab
12/09/23 17:31
Admit/Transfer Patient As Directed
Co-Sign Provider:
Level of Care: Inpatient admission
Assign to:: Telemetry
Physician / Group: phililps/hospitalist
Diagnosis: fatigue
Reason for Telemetry: Other
Other Reason for Telemetry: BP uncontrolled
Date to Stop Telemetry: 12/11/23
Time to Stop Telemetry: 11:00
Reason for Hospitalization: mono, HTN urgency, weakness
Expected length of stay greater than two midnights?: Yes
ELOS- Estimated Length of Stay in days: 3
I certify the patient meets the requirements for IP care: Yes
12/09/23 17:33
Code Status As Directed
Resuscitation Status: Full Code
12/11/23 11:00
DC Protocol for Telemetry ONCE
Abnormal Lab Results
12/09/23 12/09/23
: 09:44
WBC 11.5 H 10^3/uL
(4.8-10.8)
RBC 3.47 L 10^6/uL
(4.70-6.10)
Hgb 11.0 L g/dL
(13.0-18.0)
Hct 32.2 L %
(39.0-52.0)
MCH 31.7 H pg
(27.0-31.0)
MPV 10.8 H fL
(7.4-10.4)
Absolute Neuts (auto) 8.9 H 10^3/uL
(1.4-6.5)
Absolute Lymphs (auto) 1.1 L 10^3/uL
(1.2-3.4)
Absolute Monos (auto) 1.4 H 10^3/uL
(0.1-0.6)
Neutrophils % 77.3 H %
(42.2-75.2)
Lymphocytes % 9.8 L %
(20.5-51.1)
Monocytes % 12.3 H %
(1.7-9.3)
Sodium 130 L mmol/L
(135-145)
Chloride 94 L mmol/L
(98-107)
Creatinine 0.6 L mg/dL
(0.7-1.3)
Urine Ketones 1+ A
(Negative)
Ur Occult Blood Reflex 3+ A
(Negative)
Leukocyte Esterase Rfl 2+ A
(Negative)
Urine RBC 3-6 A /HPF
(0-2)
Urine WBC (Reflex) 21-25 A /HPF
(0-5)
Urine Bacteria (Reflex) Few A
(Negative)
Urine Albumin (Reflex) 1+ A
(Neg - Trace)
Monoscreen Positive A
(Negative)
12/09/23 09:28
12/09/23 09:28
Vital Signs
Initial and Last Documented VS:
Initial Vital Signs
Temp Pulse Resp BP Pulse Ox
97.4 F 68 19 161/90 96
12/09/23 09:01 12/09/23 09:01 12/09/23 09:01 12/09/23 09:01 12/09/23 09:01
Last Documented Vital Signs
Temp Pulse Resp BP Pulse Ox
97.4 F 79 19 192/80 95
12/09/23 09:01 12/09/23 17:00 12/09/23 17:00 12/09/23 16:11 12/09/23 16:45
MDM/Problems Addressed
MDM/Problems Addressed:
83 yo male from home for general fatigue and malodorous urine per home P/T personnel. Has indwelling Palm catheter which was changed 2 days ago by VN and pt was started on Bactrim.
Pt states 'I',m so weak, I have no strength.' 'I feel so tired all the time.' Pt denies CP, SOB, Abd pain, denies vomiting but does feel nauseous. Denies fever/chills. He has had a mild intermittent cough productive of clear sputum for '5 weeks.'
Pt lives with who he says takes good care of him. He ambulates with Rollator at baseline.
Afebrile. NAD
10:00 AM
CBC: WBC 11.5, hemoglobin 11.0 which is his baseline
CMP: Na 130, otherwise unremarkable
Troponin: WNL
U/A: WBC 21-25, neg Nitrites, 2+Leukocytes, 3+ occult blood, few bacteria
11:00 AM
arrives and states that she noted a change in mental state last night where patient was pulling his depends off and pulling his shirt off which is unusual for him. Although he has had some right leg weakness, she states that he has been
dragging his right leg more in the past couple of days and he could not even move it last night. Any questions that she asked him he will keep responding 'I don't know,' States speech has been a little more garbled but coherent.
Urine culture pending.
Will stop Bactrim, start Aztreonam and Cipro can prolong QT with Sotalol
Monotest positive
5:00 pm
Hospitalist notified of admission (I thought I had notified them 3 hours ago but realized I had not when RN asked)
Pt remains stable.
*Critical Care Note
Total Time (30-74mins, 75-104mins- exclusive of procedures): Not Applicable
ED Attending Note
-
Portions of this chart may have been created with voice recognition software.� Occasional wrong word or��sound alike� substitutions may have occurred due to the inherent limitations of voice recognition software.
Discharge Plan
Departure
Patient Disposition: Admit
Date of Disposition: 12/09/23
Time of Disposition: 12:03
Admit to: Med/Surg
Presentation/result/management discussed w/ accepting MD/DO: Hospitalist
Condition: Fair
Discharge Problem:
General weakness, Acute UTI, Altered mental state, Mononucleosis
Prescriptions:
No Action
Glucosamine Sulf-Chondroitin 1 EACH capsule
1 cap PO NOON
atorvastatin 10 MG tablet
10 mg PO HS
divalproex 500 MG tablet,delayed release (DR/EC)
1,000 mg PO QPM
omega 9-mlc-qwn-fish oil 900-1,400 mg Capsule,Delayed Release(Dr/Ec)
1 cap PO NOON Qty: 0
Eliquis 5 MG tablet
5 mg PO BID
levothyroxine 75 MCG tablet
37.5 mcg PO DAILY@0700 0RF
sotalol 80 MG tablet
80 mg PO BID 0RF
vitamin B complex Tablet
1 tab PO NOON
finasteride 5 mg Tablet
5 mg PO DAILY Qty: 0 0RF
nifedipine 30 mg Tablet Extended Release 24hr
30 mg PO DAILY
therapeutic multivitamin Tablet
1 tab PO NOON
sulfamethoxazole-trimethoprim [Bactrim DS] 800-160 mg Tablet
1 tab PO BID
acetaminophen [Tylenol Extra Strength] 500 mg Tablet
1,000 mg PO Q6HPRN PRN (Reason: mild pain)
methenamine hippurate [Hiprex] 1 gram Tablet
1 g PO DAILY
docusate sodium [Colace] 100 mg Capsule
100 mg PO BIDPRN PRN (Reason: constipation)
polyethylene glycol 3350 17 gram powder in packet
17 g PO DAILYPRN PRN (Reason: constipation)
Referrals:
Maverick Yeboah MD [Family Provider] -
Discharge Date and Time
Print Language: DANISH
[2023-12-09] MEDS: NSS 1000 IV ×2 (09:33→21:31)
[2023-12-09 09:43] LABS: % Basophils 0.2 % (0-2); % Eosinophils 0.1 % (0-6); % Immature Granulocytes 0.3 % (0-0.5); % Lymphocytes 9.8 % (20.5-51.1); % Monocytes 12.3 % (1.7-9.3); % Neutrophils 77.3 % (42.2-75.2); Absolute Lymphocytes 1.1 10^3/uL (1.2-3.4); Absolute Monocytes 1.4 10^3/uL (0.1-0.6); Absolute Neutrophils 8.9 10^3/uL (1.4-6.5); Hematocrit 32.2 % (39.0-52.0); Mean Corp Hgb Conc. 34.2 g/dL (33.0-37.0); Mean Corpuscular Hgb 31.7 pg (27.0-31.0); Mean Corpuscular Volume 92.8 fL (80.0-94.0); Mean Platelet Volume 10.8 fL (7.4-10.4); Nucleated Red Blood Cells % 0 % (-); Platelet Count 220 10^3/uL (130-400); Red Blood Cell Count 3.47 10^6/uL (4.70-6.10); Red Cell Dist. Width 14.1 % (11.5-14.5); White Blood Cell Count 11.5 10^3/uL (4.8-10.8)
[2023-12-09 09:54] LABS: Urine Albumin 1+ (Neg - Trace); Urine Bilirubin Negative (Negative); Urine Character Clear (Clear); Urine Color Yellow; Urine Glucose Negative (Negative); Urine Ketone 1+ (Negative); Urine Leukocyte 2+ (Negative); Urine Nitrite Negative (Negative); Urine Occult Blood 3+ (Negative); Urine Specific Gravity 1.015 (<1.030); Urine Urobilinogen Negative (Neg - 1+)
[2023-12-09 09:54] LABS: ALT (SGPT) 10 U/L (0-50); AST (SGOT) 44 U/L (17-59); Albumin 3.8 g/dl (3.5-5.0); Alkaline Phosphatase 73 U/L (38-126); Blood Urea Nitrogen 16 mg/dl (9-20); Calcium 9.3 mg/dl (8.4-10.2); Carbon Dioxide 27 mmol/L (22-30); Chloride 94 mmol/L (98-107); Glucose 89 mg/dl (70-99); Potassium 4.6 mmol/L (3.5-5.1); Sodium 130 mmol/L (135-145); eGFR > 60.00
[2023-12-09 10:05] LABS: Troponin I < 0.012 ng/ml
[2023-12-09 10:32] LABS: Urine Bacteria Few (Negative); Urine White Cell 21-25 /HPF (0-5)
--- NOTE | 2023-12-09 12:22 | PHANOTE ---
med rec note- called patient spouse to see if patient took his medication today, since he is on eliquis bid. patient can not remember if he did, Alysa the spouse is on file and did not pecan picker
[2023-12-09 12:57] LABS: Monotest Positive (Negative)
[2023-12-09] MEDS: PROCARDIA XL (EXTENDED RELEASE) 30 MG PO (15:28)
[2023-12-09] MEDS: AZACTAM 2000 MG IV (17:07)
--- NOTE | 2023-12-09 17:26 | HPS.HSE ---
Family Physician
-
Family Physician: Maverick Yeboah
Chief Complaint
-
tired
History of Present Illness
83-year-old male extensive past medical history is presenting from home with fever and weakness. Patient Palm catheter was exchanged at home 2 days ago. Patient was started outpatient on Bactrim. Patient said he was feeling weak. Also stated
productive cough. Feeling intermittent shortness of breath with exertion. Denies any chest pain at rest or exertion. Denies any orthopnea PND or lower extremity edema. Denies any abdominal pain. Denies any nausea or vomiting. He denies any
fevers or chills. States lives at home. States of decreased appetite for the last 24 hours. States of dry mouth. Denies diarrhea. Denies any headache or vision problems or neck pain. States of overall diffuse body weakness. Denies headache or
vision problems.
Medical History
Past Medical History
Past Medical History: Reports Other
Additional Past Medical History:
Hyperlipidemia
Iron deficiency anemia
Peripheral vascular disease
Chronic constipation
Neuropathy
Hypertension Primary
Obstructive sleep apnea
Goiter
Dysphagia
Bipolar
Hypothyroidism
BPH
Embolic stroke
Urinary retention
A-fib Paroxysmal
Depression
Overactive bladder
Past Surgical History: Reports Other
Additional Past Surgical History:
Deviated nasal Spectam surgical correction correction
Hernia repair
Cardiac ablation
Pulmonary embolism with [place] filter
Social History
Tobacco: Former Smoker
Alcohol: None
Personal:
Living: With Family
Family History
Family History: Not pertinent
Allergies / Home Medications
Allergies reflects when Allergies were last updated in [facility].
Home Medications with original date entered in [facility]
Allergy/Medication List:
Allergies
Allergy/AdvReac Type Severity Reaction Status Date / Time
cephalexin [Cephalexin] Allergy Hives Verified 06/22/24 09:16
tamsulosin [From Flomax] Allergy lightheadness, Verified 12/09/23 09:16
low BP,
and
passing out
vancomycin Allergy Itching Verified 12/09/23 09:16
AND RASH
Home Medications
glucosamine sulfate dipotassium Cl 500 mg-chondroitin 400 mg capsule (Glucosamine Sulfate 2 KCL-Chondroitin) 1 cap PO NOON Supplement 07/16/20
atorvastatin 10 mg tablet 10 mg PO HS High cholesterol 09/25/20
divalproex 500 mg tablet,delayed release 1,000 mg PO QPM Neurological Condition 03/26/21
omega 4-fea-cpk-fish oil 900 mg-1,400 mg capsule,delayed release 1 cap PO NOON Supplement ##0 03/26/21
apixaban 5 mg tablet (Eliquis) 5 mg PO BID Blood clot prevention/tx 06/07/21
levothyroxine 75 mcg tablet 37.5 mcg (1/2 x 75 mcg) PO DAILY@0700 Thyroid 06/10/21
sotalol 80 mg tablet 80 mg PO BID 07/27/21
vitamin B complex 1 tab PO NOON supplement 06/16/22
finasteride 5 mg tablet 5 mg PO DAILY #0 tabs 06/22/22
nifedipine 30 mg tablet,extended release 24 hr 30 mg PO DAILY blood pressure 09/11/23
therapeutic multivitamin 1 tab PO NOON supplement 09/11/23
acetaminophen 500 mg tablet (Tylenol Extra Strength) 1,000 mg PO Q6HPRN PRN mild pain 12/09/23
docusate sodium 100 mg capsule (Colace) 100 mg PO BIDPRN PRN constipation 12/09/23
methenamine hippurate 1 gram tablet (Hiprex) 1 g PO DAILY 12/09/23
polyethylene glycol 3350 17 gram oral powder packet 17 g PO DAILYPRN PRN constipation 12/09/23
sulfamethoxazole 800 mg-trimethoprim 160 mg tablet (Bactrim DS) 1 tab PO BID 12/09/23
Review of Systems
-
History Source: Patient
A 12 point ROS was completed and negative except as noted: Yes
Physical Exam
Vital Signs
Vital Signs
Temp Pulse Resp BP Pulse Ox
97.4 F 79 19 192/80 95
12/09/23 09:01 12/09/23 17:00 12/09/23 17:00 12/09/23 16:11 12/09/23 16:45
Physical Exam
General: Well Developed, Well Nourished and No Apparent Distress
HEENT: NormoCephalic, Moist mucous membranes and Atraumatic
Respiratory: Clear
Cardiac: S1/S2, Regular Rhythm and Murmur; No Rub
GI: Soft, Non Tender, Non Distended and Normal Bowel Sounds; No Organomegaly
Rectal: Deferred by Provider
Genito-urinary: Palm
Musculoskeletal: No Clubbing, No Cyanosis and No Edema
Skin: No Rash
Neuro: Awake and Nonfocal/grossly intact
Psych: Calm
Laboratory Results
-
12/09/23 09:28
12/09/23 09:28
Laboratory Results
Total Bilirubin 1.0 mg/dl (0.2-1.3) 12/09/23 09:28
AST 44 U/L (17-59) 12/09/23 09:28
ALT 10 U/L (0-50) 12/09/23 09:28
Alkaline Phosphatase 73 U/L (38-126) 12/09/23 09:28
Troponin I < 0.012 ng/ml 12/09/23 09:32
Impression/Plan
-
# Sinus congestion and cough weakness likely secondary to Infectious mononucleosis
-Start patient on gentle IV fluids
-Tylenol as needed
-Monitor diet tolerance
-Influenza negative. Check COVID.
-CXR negative for acute infiltrate
# Suspected Urinary tract infection
# Neurogenic bladder
# Chronic Palm
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
-IV ceftriaxone tolerated it in the past.
-Tylenol as needed for fever and pain
# Ambulatory dysfunction
-PT/OT consult
#Right Clavicular lump
-possibly lipoma
-f/u outpatient for further diagnostic tools
# Anemia of chronic disease
-Hemoglobin 11
-No active bleeding
-Continue to monitor
h/o CVA:
-cont Eliquis/statin
Essential hypertension elevated
-cont nifedipine
�
Paroxysmal Atrial Fibrillation
-Cont Eliquis/Sotalol
-Monitor on tele
# History of DVT/PE
-IVC filter and on Eliquis
#Hypothyroid/Thyromegaly/Nodular Thyroid: TSH normal
-Levothyroxine continued
#Bipolar Disorder: cont Depakote
# History of BPH
-Finasteride continued
FULL/Eliquis
I spent a total of 78 minutes with the patient or on the floor. More than 50% of this time involved counseling and coordination of care.
[2023-12-09 18:29] LABS: COVID-19 Antigen Negative (Negative)
--- NOTE | 2023-12-09 19:30 | PTCARENOTE ---
Patient arrived to 338-2 from ED via stretcher - patient pulled to bed with assist of 3 person. Patient able to answer questions when asked, but does appear to be confused. Unsure of baseline mentation. Patient initiated on potline monitor #28 -
NSR with HR 80s. IVFs started per MD orders. Bed alarm placed for safety. Chronic brunson catheter in place, wiped with brunson wipes upon arrival. Call rodriguez within reach, reviewed proper use and patient states understanding. Will continue to monitor.
[2023-12-09] MEDS: LIPITOR 10 MG PO (21:28)
[2023-12-09] MEDS: ELIQUIS 5 MG PO (21:28)
[2023-12-09] MEDS: BETAPACE 80 MG PO (21:29)
[2023-12-09] MEDS: DEPAKOTE (12 HR RELEASE) 1000 MG PO (21:29)
--- NOTE | 2023-12-09 21:29 | PTCARENOTE ---
Patient c/o severe right hip pain 01/26 - he states he fell approx 2 weeks ago and it has been hurting him ever since. Patient is unsure if he was ever evaluated during that time, and unsure if he ever had scans performed on that hip. Notified TALI
Ashley Steele - Xray of right hip ordered and one time dose 1000mg Tylenol ordered and provided to patient. Will continue to monitor.
[2023-12-09] MEDS: TYLENOL 1000 MG PO (21:46)
--- NOTE | 2023-12-09 22:55 | PTCARENOTE ---
Reported by another staff member on the unit that patient was found attempting to eat the earplugs that were provided to him, patient stated 'it is my Tylenol'. Ear plugs removed from reach of patient. Will monitor.
[2023-12-10 03:07] VITALS: BP 148/61
[2023-12-10] MEDS: SYNTHROID 37.5 MCG PO (05:37)
[2023-12-10] MEDS: TYLENOL 650 MG PO ×2 (05:41→19:48)
[2023-12-10 06:00] VITALS: BMI 25.4
[2023-12-10 07:00] VITALS: BP 114/61
[2023-12-10 07:05] LABS: Blood Urea Nitrogen 17 mg/dl (9-20); Calcium 9.1 mg/dl (8.4-10.2); Carbon Dioxide 27 mmol/L (22-30); Chloride 96 mmol/L (98-107); Estimated Creatinine Clearance 104 ml/min; Glucose 83 mg/dl (70-99); Potassium 4.2 mmol/L (3.5-5.1); Sodium 132 mmol/L (135-145); eGFR > 60.00
[2023-12-10 07:12] LABS: Hemoglobin 10.2 g/dL (13.0-18.0); Mean Corp Hgb Conc. 32.9 g/dL (33.0-37.0); Mean Corpuscular Hgb 31.2 pg (27.0-31.0); Mean Corpuscular Volume 94.8 fL (80.0-94.0); Mean Platelet Volume 10.8 fL (7.4-10.4); Platelet Count 207 10^3/uL (130-400); Red Blood Cell Count 3.27 10^6/uL (4.70-6.10); Red Cell Dist. Width 13.8 % (11.5-14.5); White Blood Cell Count 9.8 10^3/uL (4.8-10.8)
[2023-12-10] MEDS: PROCARDIA XL (EXTENDED RELEASE) 30 MG PO (08:38)
[2023-12-10] MEDS: BETAPACE 80 MG PO ×2 (08:38→19:39)
[2023-12-10] MEDS: ROCEPHIN 1000 MG IV (08:39)
[2023-12-10] MEDS: ELIQUIS 5 MG PO ×2 (08:39→19:39)
[2023-12-10] MEDS: PROSCAR 5 MG PO (08:39)
[2023-12-10] MEDS: STERILE WATER FOR INJECTION 10 ML IV (08:40)
--- NOTE | 2023-12-10 10:52 | W.PN.HOSP.TC ---
Today's Communication/Plan
-
Monitor for diet tolerance
Rehab evaluation
Assessment / Plan
Assessment / Plan
General: Well Developed, Well Nourished and No Apparent Distress
HEENT: NormoCephalic, Moist mucous membranes and Atraumatic
Respiratory: Clear
Cardiac: S1/S2, Regular Rhythm and Murmur; No Rub
GI: Soft, Non Tender, Non Distended and Normal Bowel Sounds; No Organomegaly
Rectal: Deferred by Provider
Genito-urinary: Palm
Musculoskeletal: No Clubbing, No Cyanosis and No Edema
Skin: No Rash
Neuro: Awake and Nonfocal/grossly intact
Psych: Calm
# Sinus congestion and cough weakness likely secondary to Infectious mononucleosis
-DC IV fluids later today.
-Tylenol as needed
-Monitor diet tolerance
-Influenza negative. COVID negative.
-CXR negative for acute infiltrate
# Suspected Urinary tract infection
# Neurogenic bladder
# Chronic Palm
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
-IV ceftriaxone tolerated it in the past.
-Tylenol as needed for fever and pain
# Ambulatory dysfunction
-PT/OT consult
#Right Clavicular lump
-possibly lipoma
-f/u outpatient for further diagnostic tools
# Anemia of chronic disease
-No active bleeding
-Continue to monitor
h/o CVA:
-cont Eliquis/statin
Essential hypertension elevated
-cont nifedipine
�
Paroxysmal Atrial Fibrillation
-Cont Eliquis/Sotalol
-Monitor on tele
# History of DVT/PE
-IVC filter and on Eliquis
#Hypothyroid/Thyromegaly/Nodular Thyroid: TSH normal
-Levothyroxine continued
#Bipolar Disorder: cont Depakote
# History of BPH
-Finasteride continued
FULL/Eliquis
Updated follow-up on complete details
Anticipated Discharge: > 48 hours
Subjective/Interval History
-
Date of Service: December 10, 2023
Overnight events noted
On room air
feeling better this am
remains with cough
Objective Data
-
Labs:
Laboratory Results
12/10/23
06:08
WBC 9.8
Hgb 10.2 L
Hct 31.0 L
Plt Count 207
Sodium 132 L
Potassium 4.2
Chloride 96 L
Carbon Dioxide 27
BUN 17
Creatinine 0.6 L
Glucose 83
Calcium 9.1
Vital Signs:
Vital Signs
Temp Pulse Resp BP Pulse Ox
98.5 F 59 18 114/61 97
12/10/23 07:00 12/10/23 07:00 12/10/23 07:00 12/10/23 07:00 12/10/23 07:00
I&O
12/09/23 12/10/23 12/11/23
06:59 06:59 06:59
Intake Total 1170 / 1170
Output Total 1450 / 1450
Balance -280 / -280
[2023-12-10 11:00] VITALS: BP 133/62
[2023-12-10] MEDS: B COMPLEX w/VITAMIN C 1 CAPLET PO (13:22)
[2023-12-10] MEDS: THERAGRAN 1 TABLET PO (13:23)
[2023-12-10 15:00] VITALS: BP 147/70
[2023-12-10] MEDS: DEPAKOTE (12 HR RELEASE) 1000 MG PO (18:11)
[2023-12-10 19:12] VITALS: BP 158/107
--- NOTE | 2023-12-10 19:36 | PTCARENOTE ---
A.Fib. with RVR noted on monitor. Heart rate sustaing in the 160's, patient reports feeling palpitations. BP elevated, scheduled Betapace given. TALI Estrada notified of above, STAT order for IV Lopressor 5mg received. Will monitor, care
ongoing.
[2023-12-10] MEDS: LOPRESSOR 5 MG IV (19:48)
[2023-12-10] MEDS: LIPITOR 10 MG PO (21:20)
[2023-12-10 23:23] VITALS: BP 143/72
[2023-12-11] VITALS (8 sets, daily range): BP systolic 135–166; BP diastolic 64–84; PULSE 61
[2023-12-11] MEDS: APRESOLINE 5 MG IV (05:36)
[2023-12-11] MEDS: SYNTHROID 37.5 MCG PO (05:36)
[2023-12-11] MEDS: PROCARDIA XL (EXTENDED RELEASE) 30 MG PO ×2 (08:47→20:32)
[2023-12-11] MEDS: ROCEPHIN 1000 MG IV (08:48)
[2023-12-11] MEDS: ELIQUIS 5 MG PO ×2 (08:48→20:34)
[2023-12-11] MEDS: PROSCAR 5 MG PO (08:48)
[2023-12-11] MEDS: STERILE WATER FOR INJECTION 10 ML IV (08:48)
[2023-12-11] MEDS: BETAPACE 80 MG PO ×2 (08:48→20:34)
[2023-12-11] MEDS: TYLENOL 650 MG PO (08:52)
--- NOTE | 2023-12-11 10:49 | W.PN.HOSP.TC ---
Today's Communication/Plan
-
Diet tolerance
PT/OT
Monitor BP
Assessment / Plan
Assessment / Plan
General: Well Developed, Well Nourished and No Apparent Distress
HEENT: NormoCephalic, Moist mucous membranes and Atraumatic, cervical LN+, R clavicle bump
Respiratory: Clear
Cardiac: S1/S2, Regular Rhythm and Murmur; No Rub
GI: Soft, Non Tender, Non Distended and Normal Bowel Sounds; No Organomegaly
Rectal: Deferred by Provider
Genito-urinary: Palm
Musculoskeletal: No Clubbing, No Cyanosis and No Edema
Skin: No Rash
Neuro: Awake and Nonfocal/grossly intact
Psych: Calm
# Sinus congestion and cough weakness likely secondary to Infectious mononucleosis
-DC IV fluids
-Tylenol as needed
-Monitor diet tolerance
-Influenza negative. COVID negative.
-CXR negative for acute infiltrate
# Suspected Urinary tract infection 2,2 enterococcus vs. colonization
# Neurogenic bladder
# Chronic Palm
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
-IV ceftriaxone tolerated it in the past.
-Tylenol as needed for fever and pain
# Ambulatory dysfunction
-PT/OT consult
#Right Clavicular lump
-possibly lipoma
-f/u outpatient for further diagnostic tools
# Anemia of chronic disease
-No active bleeding
-Continue to monitor
h/o CVA:
-cont Eliquis/statin
Essential hypertension elevated
-cont nifedipine 30mg increased to BID
�
Paroxysmal Atrial Fibrillation
-Cont Eliquis/Sotalol
-Monitor on tele
# History of DVT/PE
-IVC filter and on Eliquis
#Hypothyroid/Thyromegaly/Nodular Thyroid: TSH normal
-Levothyroxine continued
#Bipolar Disorder: cont Depakote
# History of BPH
-Finasteride continued
FULL/Eliquis
Updated follow-up on complete details on 12/10
Anticipated Discharge: 24 - 48 hours
Subjective/Interval History
-
Date of Service: December 11, 2023
feeling weak
not much appetite
Objective Data
-
Vital Signs:
Vital Signs
Temp Pulse Resp BP Pulse Ox
97.9 F 70 18 166/81 95
12/11/23 07:00 12/11/23 07:00 12/11/23 07:00 12/11/23 07:00 12/11/23 07:00
I&O
12/10/23 12/11/23 12/12/23
06:59 06:59 06:59
Intake Total 1170 / 1170 240 / 240
Output Total 1450 / 1450 1300 / 1300
Balance -280 / -280 -1060 / -1060
--- NOTE | 2023-12-11 10:54 | PN.CDI ---
CDI
- -
CDI:
Physician Documentation Request
Admit Date: 12/09/23 17:54
Dear Doctor Anu,
Please review the following and provide your response in the progress notes.
Clinical Indicators:
Physician Documentation Request
Admit Date: 12/09/23 17:54
Dear Doctor Anu,
Please review the following and provide your response in the progress notes.
Clinical Indicators:
Laboratory Tests
12/09/23 12/10/23
09:28 06:08
Sodium 130 L 132 L
Based on the above, please clarify in the progress notes, the appropriate diagnosis, if significant, that supports the above abnormalities and additional evaluation, monitoring and/or treatment rendered:
Hyponatremia
Abnormal lab value, clinically insignificant
Other(please specify)
Use of terms such as suspected, likely, concern for, or probable (associated with a specific diagnosis that is being evaluated, monitored, or treated as if it exists) are acceptable and can be coded in the inpatient setting, when documented at the
time of discharge.
Thank you,
Lory Stevenson RN BSN CCDS
CDI Specialist
please contact via tiger text
Please use your independent medical judgment in providing your response.
Lab Tests:
Imaging:
Progress Notes:
Nurses Notes:
Ancillary Notes:
Other documentation:
Based on the above, could you clarify in the progress notes, the appropriate diagnosis, if significant, that supports the above abnormalities and additional evaluation, monitoring and/or treatment rendered:
Other
Unable to determine
Use of terms such as suspected, likely, concern for, or probable (associated with a specific diagnosis that is being evaluated, monitored, or treated as if it exists) are acceptable and can be coded in the inpatient setting, when documented at the
time of discharge.
Thank you,
Lory Stevenson
CDI Specialist
Please use your independent medical judgment in providing your response.
--- NOTE | 2023-12-11 10:57 | PN.CDI ---
CDI
- -
CDI:
Physician Documentation Request
Admit Date: 12/09/23 17:54
Dear Doctor Anu,
Please review the following and provide your response in the progress notes.
Clinical Indicators:
PN, 12/10
# Suspected Urinary tract infection 2,2 enterococcus vs. colonization
# Neurogenic bladder
# Chronic Brunson
Please clarify the relationship, if any, between these conditions:
Yes, suspected UTI is related to/associated with/due to chronic brunson.
No, suspected UTI is not related to/associated with/due to chronic brunson but it is due to ___. (Please specify)
Other(please specify)
Use of terms such as suspected, likely, concern for, or probable (associated with a specific diagnosis that is being evaluated, monitored, or treated as if it exists) are acceptable and can be coded in the inpatient setting, when documented at the
time of discharge.
Thank you,
Lory Stevenson RN BSN CCDS
CDI Specialist
please contact via tiger text
Please use your independent medical judgment in providing your response.
[2023-12-11] MEDS: B COMPLEX w/VITAMIN C 1 CAPLET PO (12:19)
[2023-12-11] MEDS: THERAGRAN 1 TABLET PO (12:19)
--- NOTE | 2023-12-11 16:09 | CM ---
Alert awake oriented patient who lives with his Alysa who lives in a 2 story home with 2 step to enter and 9 steps to bed and bathroom. He is assisted in all activities of daily living.He uses a stair glide,walker cane.Spoke with she
requested SNF referral placed for [facility] and [facility] if [facility] can not.
VN hx and [facility] SN[facility] hx
Pharmacy [facility]
PCP DR Yeboha
PLAN To Snf
[2023-12-11] MEDS: DEPAKOTE (12 HR RELEASE) 1000 MG PO (17:03)
[2023-12-11] MEDS: LIPITOR 10 MG PO (20:35)
[2023-12-12 03:05] VITALS: BP 126/67
[2023-12-12] MEDS: SYNTHROID 37.5 MCG PO (05:43)
[2023-12-12 07:00] VITALS: BP 163/77
[2023-12-12] MEDS: PROCARDIA XL (EXTENDED RELEASE) 30 MG PO ×2 (08:07→19:59)
[2023-12-12] MEDS: BETAPACE 80 MG PO ×2 (08:08→19:59)
[2023-12-12] MEDS: STERILE WATER FOR INJECTION 10 ML IV (08:08)
[2023-12-12] MEDS: PROSCAR 5 MG PO (08:08)
[2023-12-12] MEDS: ELIQUIS 5 MG PO ×2 (08:08→19:59)
[2023-12-12] MEDS: ROCEPHIN 1000 MG IV (08:09)
--- NOTE | 2023-12-12 10:33 | W.PN.HOSP.TC ---
Addendum entered and electronically signed by Angelo Brennan MD 12/12/23 11:33:
Enterococcus colonization.
Other
Mild hyponatremia
Addendum entered and electronically signed by Angelo Brennan MD 12/12/23 11:00:
Patient culture data finalized with only 10,000 colony-forming unit likely colonization with Enterococcus. Observe off antibiotics. of note, if any change avoid amoxicillin for now due to [place].
Original Note:
Today's Communication/Plan
-
await placement to snf
po abx on dc
monitor diet tolerance
Assessment / Plan
Assessment / Plan
General: Well Developed, Well Nourished and No Apparent Distress
HEENT: NormoCephalic, Moist mucous membranes and Atraumatic, cervical LN+, R clavicle bump
Respiratory: Clear
Cardiac: S1/S2, Regular Rhythm and Murmur; No Rub
GI: Soft, Non Tender, Non Distended and Normal Bowel Sounds; No Organomegaly
Rectal: Deferred by Provider
Genito-urinary: Palm
Musculoskeletal: No Clubbing, No Cyanosis and No Edema
Skin: No Rash
Neuro: Awake and Nonfocal/grossly intact
Psych: Calm
# Sinus congestion and cough weakness likely secondary to Infectious mononucleosis
-DC IV fluids
-Tylenol as needed
-Monitor diet tolerance
-Influenza negative. COVID negative.
-CXR negative for acute infiltrate
# Suspected Urinary tract infection 2,2 enterococcus vs. colonization
# Neurogenic bladder
# Chronic Palm
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
-IV ceftriaxone tolerated it in the past.
-Tylenol as needed for fever and pain
# Ambulatory dysfunction
-PT/OT consult recs SNF. Await placement.
#Right Clavicular lump
-possibly lipoma
-f/u outpatient for further diagnostic tools
# Anemia of chronic disease
-No active bleeding
-Continue to monitor
h/o CVA:
-cont Eliquis/statin
Essential hypertension elevated
-cont nifedipine 30mg increased to BID
�
Paroxysmal Atrial Fibrillation
-Cont Eliquis/Sotalol
-Monitor on tele
# History of DVT/PE
-IVC filter and on Eliquis
#Hypothyroid/Thyromegaly/Nodular Thyroid: TSH normal
-Levothyroxine continued
#Bipolar Disorder: cont Depakote
# History of BPH
-Finasteride continued
FULL/Eliquis
Anticipated Discharge: Within 24 hours
Subjective/Interval History
-
Date of Service: December 12, 2023
feeling mildly better compared to yesterday
eating around 50% of meals
bp improving
Objective Data
-
Vital Signs:
Vital Signs
Temp Pulse Resp BP Pulse Ox
97.6 F 65 16 163/77 97
12/12/23 07:00 12/12/23 08:08 12/12/23 07:00 12/12/23 08:08 12/12/23 07:00
I&O
12/11/23 12/12/23 12/13/23
06:59 06:59 06:59
Intake Total 240 / 240 930 / 930
Output Total 1300 / 1300 800 / 800
Balance -1060 / -1060 130 / 130
[2023-12-12 11:00] VITALS: BP 167/69
[2023-12-12] MEDS: B COMPLEX w/VITAMIN C 1 CAPLET PO (11:30)
[2023-12-12] MEDS: THERAGRAN 1 TABLET PO (11:30)
[2023-12-12 15:00] VITALS: BP 166/82
[2023-12-12] MEDS: DEPAKOTE (12 HR RELEASE) 1000 MG PO (17:06)
[2023-12-12 19:43] VITALS: BP 163/60
[2023-12-12] MEDS: TYLENOL 650 MG PO (20:07)
[2023-12-12] MEDS: LIPITOR 10 MG PO (21:12)
[2023-12-12] MEDS: APRESOLINE 5 MG IV (21:12)
[2023-12-12 23:24] VITALS: BP 157/72
[2023-12-13 03:35] VITALS: BP 148/75
[2023-12-13] MEDS: TYLENOL 650 MG PO ×2 (03:59→08:28)
[2023-12-13] MEDS: APRESOLINE 5 MG IV (03:59)
[2023-12-13] MEDS: SYNTHROID 37.5 MCG PO (05:56)
[2023-12-13 07:00] VITALS: BP 145/59
[2023-12-13] MEDS: BETAPACE 80 MG PO (08:24)
[2023-12-13] MEDS: PROCARDIA XL (EXTENDED RELEASE) 30 MG PO (08:24)
[2023-12-13] MEDS: ELIQUIS 5 MG PO (08:24)
[2023-12-13] MEDS: PROSCAR 5 MG PO (08:24)
--- NOTE | 2023-12-13 10:25 | PTCARENOTE ---
Tylenol administered this am for patient reports of right hip pain with relief, tolerating diet, appetite poor, needs to be encouraged to get oob and increase activity, vss, bed/chair alarm maintained for safety, will continue to monitor.
[2023-12-13 11:00] VITALS: BP 121/57
[2023-12-13] MEDS: THERAGRAN 1 TABLET PO (12:06)
[2023-12-13] MEDS: B COMPLEX w/VITAMIN C 1 CAPLET PO (12:06)
[2023-12-13 12:09] VITALS: BP 121/57
--- NOTE | 2023-12-13 12:36 | W.PN.HOSP.TC ---
Today's Communication/Plan
-
dc
Assessment / Plan
Assessment / Plan
Physical exam:
General: chronically ill looking, No Apparent Distress
HEENT: NormoCephalic, Moist mucous membranes and Atraumatic, cervical LN+, R clavicle bump
Respiratory: Clear
Cardiac: S1/S2, Regular Rhythm and Murmur; No Rub
GI: Soft, Non Tender, Non Distended and Normal Bowel Sounds; No Organomegaly
Rectal: Deferred by Provider
Genito-urinary: Palm
Musculoskeletal: No Clubbing, No Cyanosis and No Edema. Right hip pain , right knee pain upon flexion.
Skin: No Rash
Neuro: Awake, he followed commands.
Psych: Calm
# Right hip pain
not severe pain
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
per pt and , pt gets injection of cortisol in the joint with Dr Ahuja. Will try systemic prednisone to help with discomfort.
Updated his ortho doctor. Can f/w his doctors as OP
Patient would like to go to SNF. I think PT will help his weakness, discussed with over the phone.
Sent for ESR and CRP but can be non specific since he seemed to have acute mononucleosis/UTI
# Positive infectious mononucleosis test
I think its self limited disease.
He does not have upper respiratory symptoms. No lymphadenopathy no fevers. No sore throat.
denied upper respiratory problems or congestion history. Monospot test is usually very specific. False positive reported in leukemia/lymphoma/HIV infections. Rarely positive test can remain after 1 year of having at the disease. No
lymphocytosis on admission. Normal liver function test.
-DC IV fluids
-Tylenol as needed
- No abdominal pain
-Influenza negative. COVID negative.
-CXR negative for acute infiltrate
# Suspected Urinary tract infection 2,2 enterococcus colonization
# Neurogenic bladder
# Chronic Palm
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
-IV ceftriaxone tolerated it in the past.
-Tylenol as needed for fever and pain
# Ambulatory dysfunction
-PT/OT consult recs SNF.
#Right Clavicular lump
-possibly lipoma
-f/u outpatient for further diagnostic tools
# Anemia of chronic disease
-No active bleeding
-Continue to monitor
h/o CVA:
-cont Eliquis/statin
Essential hypertension elevated
-cont nifedipine 30mg increased to BID
�
Paroxysmal Atrial Fibrillation
-Cont Eliquis/Sotalol
-Monitor on tele
# History of DVT/PE
-IVC filter and on Eliquis
#Hypothyroid/Thyromegaly/Nodular Thyroid: TSH normal
-Levothyroxine continued
#Bipolar Disorder: cont Depakote
# History of BPH
-Finasteride continued
FULL/Eliquis
Total discharge time spent to see the patient on the floor, examine the patient, review data and lab results, discuss discharge plan with patient, , vocational case manager,nursing staff around 69 minutes
Anticipated Discharge: Today
Subjective/Interval History
-
Date of Service: December 13, 2023
right hip pain and weakness but wants to go to rehab
Objective Data
-
Vital Signs:
Vital Signs
Temp Pulse Resp BP Pulse Ox
97.6 F 59 17 121/57 97
12/13/23 11:00 12/13/23 11:00 12/13/23 11:00 12/13/23 11:00 12/13/23 11:00
I&O
12/12/23 12/13/23 12/14/23
06:59 06:59 06:59
Intake Total 930 / 930 960 / 960
Output Total 800 / 800 1150 / 1150
Balance 130 / 130 -190 / -190
[2023-12-13 13:19] VITALS: BP 153/76; PULSE 60; O2SAT 95
[2023-12-13 13:30] VITALS: BP 153/76; PULSE 60; O2SAT 98
--- NOTE | 2023-12-13 13:35 | CM ---
MD entered order for discharge.
PT OT said [facility].
Pt has Medicare.
Spoke with Jennifer from [facility] she has a bed.
Spoke with Alysa [phone] who is away right now.She agrees with dc to [facility] today.
She requested [employer] form completed . given [facility] number to call with payment.[phone].
IMM reviewed agrees with dc .
[facility]
Report [phone]
fax [phone]
PLAN To [facility] via [facility]
[2023-12-13] MEDS: DELTASONE 20 MG PO (16:08)
[2023-12-13 16:38] LABS: Erythrocyte Sed Rate 82 mm/hour (0-20)
--- NOTE | 2023-12-13 16:43 | W.DCSUMMARY ---
Discharge Summary
Discharge Data
Date of Admission: 12/09/23
Date of Discharge: 12/13/23
-
Pending Results: No
Hospital Course
83 years old male admitted with weakness, joint aches, right hip pain and ambulatory dysfunction. Patient had mild leukocytosis. He reported mild intermittent cough on admission. No fevers. He had testing for COVID and influenza in the emergency
room and they were negative. He tested positive for infectious mononucleosis. Patient denied sore throat or abdominal pain. He had normal liver function test. He did not have abdominal tenderness. He did not have lymphocytosis on blood counts.
That was thought to be self-limited disease, possible positive test secondary to infection in last few months. Urine test came positive for Enterococcus which thought to be colonization. Patient was given initially empiric antibiotic but later
changed to short course of ampicillin treatment. Patient continued to have muscle aches and pains. He had right hip pain and tenderness. X-ray showed arthritic changes with chondrocalcinosis. Patient had history of repeated cortisone injection
in that joint. He was diagnosed with pseudogout. He had significantly elevated erythrocyte sedimentation rate and C-reactive protein ( ESR& CRP). He was given short course of systemic prednisone and was advised to follow-up with his primary care
doctor. Dr. Ahuja his orthopedic doctor was updated. Patient was evaluated by physical therapy and recommended long-term facility placement. Discharge planning and instructions were discussed with patient and . [facility] Patient remained hemodynamically stable and was discharged in a stable condition.
Discharge Plan
-
Patient Disposition: [facility]
Discharge Diagnosis/Procedures: Urinary tract infection
Pseudo-gout of right hip
Acute mononucleosis
Diet: As tolerated
Referrals:
Maverick Yeboah MD [Family Provider] - in one to two weeks
Prescriptions:
New
bisacodyl 10 mg Suppository
10 mg TN [id number] PRN (Reason: constipation) Qty: 12 0RF
sennosides-docusate sodium [Stool Softener-Laxative] 8.6-50 mg Tablet
1 tab PO BIDPRN PRN (Reason: constipation) Qty: 10 0RF
prednisone 20 mg tablet
20 mg PO DAILY Qty: 4 0RF
amoxicillin 500 mg capsule
500 mg PO TID Qty: 9 0RF
Continued
Glucosamine Sulf-Chondroitin 1 EACH capsule
1 cap PO NOON
atorvastatin 10 MG tablet
10 mg PO HS
divalproex 500 MG tablet,delayed release (DR/EC)
1,000 mg PO QPM
omega 6-ifj-itr-fish oil 900-1,400 mg Capsule,Delayed Release(Dr/Ec)
1 cap PO NOON Qty: 0
Eliquis 5 MG tablet
5 mg PO BID
levothyroxine 75 MCG tablet
37.5 mcg PO DAILY@0700 0RF
sotalol 80 MG tablet
80 mg PO BID 0RF
vitamin B complex Tablet
1 tab PO NOON
finasteride 5 mg Tablet
5 mg PO DAILY Qty: 0 0RF
nifedipine 30 mg Tablet Extended Release 24hr
30 mg PO DAILY
therapeutic multivitamin Tablet
1 tab PO NOON
acetaminophen [Tylenol Extra Strength] 500 mg Tablet
1,000 mg PO Q6HPRN PRN (Reason: mild pain)
methenamine hippurate [Hiprex] 1 gram Tablet
1 g PO DAILY
docusate sodium [Colace] 100 mg Capsule
100 mg PO BIDPRN PRN (Reason: constipation)
polyethylene glycol 3350 17 gram powder in packet
17 g PO DAILYPRN PRN (Reason: constipation)
Discontinued
sulfamethoxazole-trimethoprim [Bactrim DS] 800-160 mg Tablet
1 tab PO BID
Discharge Orders:
Discharge Patient (As Directed); Ordered 12/13/23
Ordered By: Tasneem Suazo
Discharge Date and Time
Print Language: [place] CITIZ[place]
== END 2023-12-13 16:47 | DRG 866 ==
LOC: 3 WEST ACU 17:54
PROVIDERS: Registered Nurse; ADMITTING PHYSICIAN Hospitalist; ATTENDING PHYSICIAN Internal Medicine; EMERGENCY PHYSICIAN Emergency Medicine; FAMILY PHYSICIAN Family Medicine
DX: B27.90 Infectious mononucleosis, unspecified without complication (principal); N39.0 Urinary tract infection, site not specified; E87.1 Hypo-osmolality and hyponatremia; D63.8 Anemia in other chronic diseases classified elsewhere; E03.9 Hypothyroidism, unspecified; I10 Essential (primary) hypertension; F31.9 Bipolar disorder, unspecified; I73.9 Peripheral vascular disease, unspecified; B95.2 Enterococcus as the cause of diseases classified elsewhere; I48.0 Paroxysmal atrial fibrillation; G62.9 Polyneuropathy, unspecified; M11.251 Other chondrocalcinosis, right hip; E78.5 Hyperlipidemia, unspecified; N31.9 Neuromuscular dysfunction of bladder, unspecified; N32.81 Overactive bladder; R33.9 Retention of urine, unspecified; Z96.0 Presence of urogenital implants; N40.0 Benign prostatic hyperplasia without lower urinary tract symptoms; G47.33 Obstructive sleep apnea (adult) (pediatric); R22.1 Localized swelling, mass and lump, neck; R26.89 Other abnormalities of gait and mobility; Z79.01 Long term (current) use of anticoagulants; Z79.890 Hormone replacement therapy; Z79.899 Other long term (current) drug therapy; Z88.1 Allergy status to other antibiotic agents; Z88.8 Allergy status to other drugs, medicaments and biological substances; Z86.73 Personal history of transient ischemic attack (TIA), and cerebral infarction without residual deficits; Z86.711 Personal history of pulmonary embolism; Z86.718 Personal history of other venous thrombosis and embolism; Z87.891 Personal history of nicotine dependence; Z11.52 Encounter for screening for COVID-19
CPT/HCPCS: 70450; 71046; 73501; 80048; 80053; 81003; 81015; 84484; 85025; 85027; 85652; 86140; 86308; 87070; 87077; 87086; 87186; 87205; 87811; 93005; 96360; 96361; 97110; 97162; 97167; 97530; 97535; 99285

== ENCOUNTER → 2023-12-18 11:35 | Outpatient (REF) | payer OTHER, MEDICARE, SELFPAY ==
[2023-12-18 12:11] LABS: % Basophils 0.2 % (0-2); % Eosinophils 0.2 % (0-6); % Immature Granulocytes 0.3 % (0-0.5); % Lymphocytes 28.2 % (20.5-51.1); % Monocytes 7.9 % (1.7-9.3); % Neutrophils 63.2 % (42.2-75.2); Absolute Lymphocytes 2.6 10^3/uL (1.2-3.4); Absolute Monocytes 0.7 10^3/uL (0.1-0.6); Absolute Neutrophils 5.9 10^3/uL (1.4-6.5); Hemoglobin 10.2 g/dL (13.0-18.0); Mean Corp Hgb Conc. 30.9 g/dL (33.0-37.0); Mean Corpuscular Hgb 30.8 pg (27.0-31.0); Mean Corpuscular Volume 99.7 fL (80.0-94.0); Mean Platelet Volume 10.1 fL (7.4-10.4); Nucleated Red Blood Cells % 0 % (-); Platelet Count 302 10^3/uL (130-400); Red Blood Cell Count 3.31 10^6/uL (4.70-6.10); Red Cell Dist. Width 14.1 % (11.5-14.5); White Blood Cell Count 9.3 10^3/uL (4.8-10.8)
[2023-12-18 12:20] LABS: Blood Urea Nitrogen 21 mg/dl (9-20); Calcium 9.4 mg/dl (8.4-10.2); Carbon Dioxide 27 mmol/L (22-30); Chloride 101 mmol/L (98-107); Glucose 81 mg/dl (70-99); Sodium 138 mmol/L (135-145); eGFR > 60.00
== END ==
LOC: OLABP 11:35
PROVIDERS: ATTENDING PHYSICIAN Family Medicine
DX: N39.0 Urinary tract infection, site not specified (principal); M62.59 Muscle wasting and atrophy, not elsewhere classified, multiple sites; B27.90 Infectious mononucleosis, unspecified without complication; B95.2 Enterococcus as the cause of diseases classified elsewhere; N31.9 Neuromuscular dysfunction of bladder, unspecified; N40.1 Benign prostatic hyperplasia with lower urinary tract symptoms; R26.2 Difficulty in walking, not elsewhere classified; I48.0 Paroxysmal atrial fibrillation; E03.9 Hypothyroidism, unspecified
CPT/HCPCS: 36415; 80048; 85025

== ENCOUNTER 2024-01-21 18:33 | Inpatient (IN) | payer MEDICARE, OTHER, SELFPAY ==
[2024-01-21] VITALS (10 sets, daily range): BP systolic 103–161; BP diastolic 51–80; BMI 25.6; BMI 24.7
[2024-01-21 14:08] LABS: % Basophils 0.2 % (0-2); % Immature Granulocytes 0.5 % (0-0.5); % Lymphocytes 9.6 % (20.5-51.1); % Monocytes 14.5 % (1.7-9.3); % Neutrophils 75.2 % (42.2-75.2); Absolute Immature Granulocytes 0.1 10^3/uL (0-0.05); Absolute Lymphocytes 1.3 10^3/uL (1.2-3.4); Absolute Monocytes 1.9 10^3/uL (0.1-0.6); Absolute Neutrophils 9.9 10^3/uL (1.4-6.5); Hematocrit 33.2 % (39.0-52.0); Hemoglobin 10.8 g/dL (13.0-18.0); Mean Corp Hgb Conc. 32.5 g/dL (33.0-37.0); Mean Corpuscular Hgb 31.7 pg (27.0-31.0); Mean Corpuscular Volume 97.4 fL (80.0-94.0); Mean Platelet Volume 9.6 fL (7.4-10.4); Nucleated Red Blood Cells % 0 % (-); Platelet Count 262 10^3/uL (130-400); Red Blood Cell Count 3.41 10^6/uL (4.70-6.10); White Blood Cell Count 13.2 10^3/uL (4.8-10.8)
[2024-01-21 14:14] LABS: Urine Albumin 1+ (Neg - Trace); Urine Bilirubin 1+ (Negative); Urine Character Clear (Clear); Urine Color Yellow; Urine Glucose Negative (Negative); Urine Ketone Negative (Negative); Urine Leukocyte 2+ (Negative); Urine Nitrite Positive (Negative); Urine Occult Blood 4+ (Negative); Urine Urobilinogen Negative (Neg - 1+)
[2024-01-21 14:25] LABS: Urine Bacteria Moderate (Negative); Urine Red Blood Cell 0-2 /HPF (0-2); Urine White Cell 26-30 /HPF (0-5)
--- NOTE | 2024-01-21 14:36 | ED.GENMED ---
History of Present Illness
General
Chief Complaint: Weakness
Source: patient and spouse
Exam Limitations: none
Time Seen by Provider: 01/21/24 14:03
Nursing documentation reviewed up to this point in time: agreed with
History of Present Illness
History of Present Illness:
83 yo
Past History
Past History
ED Past Medical History: Arrthythmia (atrial flutter/fibrillation.), CVA (2011), HTN, Hypothyroidism, Psychiatric and Other (Sleep apnea. PE, history of a mini stroke, frequent urination, diverticulosis, arthritis, appeared vision, anemia, frequent
blood transfusions, influenza)
ED Past Surgical History: Orthopedic (Total Knee surgery bilaterally), Tonsilectomy and Other (shirley filter placement; herniorrhapy)
Social History
Tobacco: Non-smoker
Alcohol: Occasional
Drug: None
Personal:
Living: with family
Employment: Retired
Family History
Family History: Other (Family history negative for coronary artery disease, arrhythmia or stroke.); Negative CAD
Phy Exam
Physical Exam
Physical Exam:
Physical Exam
General: Ill-appearing
Neck: supple. no meningeal signs. normal posterior pharynx
Heart: s1/s2 regular rate and rhythm, no murmur. equal radial
pulses.
HEENT: Pupils equal round reactive to light, EOMI
Lungs: no acute respiratory distress. clear bilaterally
Abdomen: normal bowel sounds. Diffuse abdominal tenderness, no rebound or guarding, Palm catheter in place. no CVAT
Neuro: alert and oriented. no focal neurological deficits cranial nerves II through XII intact
Skin: no rash
Psychiatric: well kept. interactive and cooperative
Extremities: no edema. no calf tenderness. negative homans. good distal pulses
Course
Orders/Labs/Results
Orders:
Orders
01/21/24 13:54
Basic Metabolic Panel Urgent
Complete Blood Count/With Diff Urgent
Ferritin Urgent
Comment: ADD ON
Iron Urgent
Total Iron Binding Urgent
Urinalysis Reflex To Culture Urgent
Date Specimen was Collected: 01/21/24
Time Specimen was Collected: 13:53
Urine Microscopic Reflex Cult Urgent
Vitamin B12 Urgent
Comment: ADD ON
Urine Culture Urgent
[place] Source: U
Specimen Description:
Date Specimen was Collected: 01/21/24
Time Specimen was Collected: 13:53
01/21/24 13:56
EKG [Electrocardiogram (*1)] Urgent
Reason for Study: Fatigue / Weakness
01/21/24 13:57
EKG- Treatment ONCE
01/21/24 14:35
CT Abd/pelvis W Iv Cont Urgent
Comment:
Reason For Exam: diffuse abdominal pain
CT Head W/o Iv Contrast Urgent
Comment:
Reason For Exam: slurred speech
01/21/24 17:26
CefTRIAXone [Rocephin] 2,000 mg IV NOW STA
01/21/24 17:39
Sterile Water [Sterile Water For Injection] 20 ml .ROUTE .STK-MED
01/21/24 17:46
Notify MD As Directed
Notify physician if: once Med Rec is done. TY
01/21/24 17:47
Add On- LAB Routine
Tests Added?: iron,tibc,ferritin,b12
Abnormal Lab Results
01/21/24
13:54
WBC 13.2 H 10^3/uL
(4.8-10.8)
RBC 3.41 L 10^6/uL
(4.70-6.10)
Hgb 10.8 L g/dL
(13.0-18.0)
Hct 33.2 L %
(39.0-52.0)
MCV 97.4 H fL
(80.0-94.0)
MCH 31.7 H pg
(27.0-31.0)
MCHC 32.5 L g/dL
(33.0-37.0)
RDW 15.0 H %
(11.5-14.5)
Abs Immat Gran (auto) 0.1 H 10^3/uL
(0-0.05)
Absolute Neuts (auto) 9.9 H 10^3/uL
(1.4-6.5)
Absolute Monos (auto) 1.9 H 10^3/uL
(0.1-0.6)
Lymphocytes % 9.6 L %
(20.5-51.1)
Monocytes % 14.5 H %
(1.7-9.3)
Sodium 134 L mmol/L
(135-145)
Creatinine 0.6 L mg/dL
(0.7-1.3)
Glucose 109 H mg/dl
(70-99)
Ur Occult Blood Reflex 4+ A
(Negative)
Urine Nitrite (Reflex) Positive A
(Negative)
Urine Bilirubin 1+ A
(Negative)
Leukocyte Esterase Rfl 2+ A
(Negative)
Urine WBC (Reflex) 26-30 A /HPF
(0-5)
Urine Bacteria (Reflex) Moderate A
(Negative)
Urine Albumin (Reflex) 1+ A
(Neg - Trace)
01/21/24 13:54
01/21/24 13:54
Vital Signs
Initial and Last Documented VS:
Initial Vital Signs
Temp Pulse Resp BP Pulse Ox
99.0 F 83 20 122/69 94
01/21/24 13:39 01/21/24 13:39 01/21/24 13:39 01/21/24 13:39 01/21/24 13:39
Last Documented Vital Signs
Temp Pulse Resp BP Pulse Ox
99.0 F 85 23 127/63 94
01/21/24 13:39 01/21/24 15:30 01/21/24 15:30 01/21/24 14:00 01/21/24 14:15
MDM/Problems Addressed
Differential Diagnosis Includes:
Malignancy, UTI, CVA
MDM/Problems Addressed:
83-year-old male with UTI, abdominal lymphadenopathy. No prior malignancy history. Admit to hospitalist for further workup. IV ceftriaxone ordered.
Chronic conditions affecting care: COPD
Acute Exacerbation and/or Progression of Chronic Illness: COPD
*Radiology
Radiology exam reviewed: radiology read reviewed (CT head no acute findings, CT abdomen pelvis shows diffuse lymphadenopathy concerning for metastasis)
*Pulse Oximetry
Patient hypoxic: no
*Enterprise Security [employer] Interpretation
Rate: normal
Interpretation: normal
Heart Rate: 83
Rhythm: sinus
*Critical Care Note
Total Time (30-74mins, 75-104mins- exclusive of procedures): Not Applicable
Data Reviewed
Review of Other/Old Records Reveals: Labs
Patient Management
Social determinants of health affecting care: Living situation
Discussion with other providers: Hospitalist
Escalation/DeEscalation of care consider admission/obs:
admit indicated
ED Attending Note
-
Portions of this chart may have been created with voice recognition software.� Occasional wrong word or��sound alike� substitutions may have occurred due to the inherent limitations of voice recognition software.
Discharge Plan
Departure
Patient Disposition: Admit
Date of Disposition: 01/21/24
Time of Disposition: 17:29
Presentation/result/management discussed w/ accepting MD/DO: Hospitalist
Patient with high blood pressure during this ER visit?: Yes
Condition: Good
Discharge Problem:
Acute UTI, Slurred speech, Abdominal lymphadenopathy
Prescriptions:
No Action
Glucosamine Sulf-Chondroitin 1 EACH capsule
1 cap PO NOON
atorvastatin 10 MG tablet
10 mg PO HS
divalproex 500 MG tablet,delayed release (DR/EC)
1,000 mg PO QPM
omega 2-tzp-ewa-fish oil 900-1,400 mg Capsule,Delayed Release(Dr/Ec)
1 cap PO NOON Qty: 0
Eliquis 5 MG tablet
5 mg PO BID
levothyroxine 75 MCG tablet
37.5 mcg PO DAILY@0700 0RF
sotalol 80 MG tablet
80 mg PO BID 0RF
vitamin B complex Tablet
1 tab PO NOON
finasteride 5 mg Tablet
5 mg PO DAILY Qty: 0 0RF
nifedipine 30 mg Tablet Extended Release 24hr
30 mg PO DAILY
therapeutic multivitamin Tablet
1 tab PO NOON
acetaminophen [Tylenol Extra Strength] 500 mg Tablet
1,000 mg PO Q6HPRN PRN (Reason: mild pain)
methenamine hippurate [Hiprex] 1 gram Tablet
1 g PO DAILY
docusate sodium [Colace] 100 mg Capsule
100 mg PO BIDPRN PRN (Reason: constipation)
polyethylene glycol 3350 17 gram powder in packet
17 g PO DAILYPRN PRN (Reason: constipation)
bisacodyl 10 mg Suppository
10 mg MT [id number] PRN (Reason: constipation) Qty: 12 0RF
sennosides-docusate sodium [Stool Softener-Laxative] 8.6-50 mg Tablet
1 tab PO BIDPRN PRN (Reason: constipation) Qty: 10 0RF
prednisone 20 mg tablet
20 mg PO DAILY Qty: 4 0RF
amoxicillin 500 mg capsule
500 mg PO TID Qty: 9 0RF
Referrals:
Maverick Yeboah MD [Family Provider] -
Interventions
Interventions:
*Risk Screen - Suicide Last Done: 01/21/24 13:39
*General Assessment Last Done: 01/21/24 13:44
*Neglect/Abuse Screening Last Done: 01/21/24 13:39
ED- Fall Risk Assessment Last Done: 01/21/24 13:44
*ED COVID-19 Vaccine History Last Done: 01/21/24 13:39
ED- Cardiac Assessment Last Done: 01/21/24 13:44
ED- Neurological Assessment Last Done: 01/21/24 13:44
ED- Pulmonary Assessment Last Done: 01/21/24 13:44
Discharge Date and Time
Print Language: NEPALI
[2024-01-21 14:53] LABS: Blood Urea Nitrogen 16 mg/dl (9-20); Estimated Creatinine Clearance 104 ml/min; Glucose 109 mg/dl (70-99); Sodium 134 mmol/L (135-145); eGFR > 60.00
[2024-01-21 14:54] LABS: Calcium 9.3 mg/dl (8.4-10.2); Carbon Dioxide 28 mmol/L (22-30); Chloride 99 mmol/L (98-107)
[2024-01-21] MEDS: ROCEPHIN 2000 MG IV (17:44)
--- NOTE | 2024-01-21 17:44 | HPS.HSE ---
Family Physician
-
Family Physician: Maverick Yeboah
Chief Complaint
-
Generalized weakness
History of Present Illness
83-year-old male present to the hospital generalized weakness. noted that the patient has been generally weak since Monday. He had a fever last night. Patient has a history of dysphagia but occasionally notes some coughing but not
consistent.
Medical History
Past Medical History
Past Medical History: Reports Other
Additional Past Medical History:
Difficulty with balance, history of CVA, Sleep apnea, pulmonary embolism, atrial fibrillation, history DVT, hypertension, hyperlipidemia, diverticulosis, hemorrhoids, GERD, neurogenic bladder, enlarged prostate, ambulatory dysfunction, DJD,
hypothyroidism, anemia, bipolar disease
Past Surgical History: Reports Other
Additional Past Surgical History:
Deviated nasal septum surgery, tonsillectomy, hernia repair, knee arthroplasty, knee replacement bilaterally, PEG tube placement and removal, loop recorder, IVC filter, right knee ablation 2009
Social History
Tobacco: Former Smoker
Alcohol: None
Drug: None
Personal:
Living: With Family
Family History
Family History: Not pertinent
Allergies / Home Medications
Allergies reflects when Allergies were last updated in [employer].
Home Medications with original date entered in [employer]
Allergy/Medication List:
Allergies
Allergy/AdvReac Type Severity Reaction Status Date / Time
cephalexin [Cephalexin] Allergy Hives Verified 01/21/24 13:44
tamsulosin [From Flomax] Allergy lightheadness, Verified 01/21/24 13:44
low BP,
and
passing out
vancomycin Allergy Itching Verified 01/21/24 13:44
AND RASH
Home Medications
glucosamine sulfate dipotassium Cl 500 mg-chondroitin 400 mg capsule (Glucosamine Sulfate 2 KCL-Chondroitin) 1 cap PO NOON Supplement 07/16/20
atorvastatin 10 mg tablet 10 mg PO DAILY@1999 High cholesterol 09/25/20
divalproex 500 mg tablet,delayed release 1,000 mg PO DAILY@1700 Neurological Condition 03/26/21
omega 5-yye-foc-fish oil 900 mg-1,400 mg capsule,delayed release 1 cap PO NOON Supplement ##0 03/26/21
apixaban 5 mg tablet (Eliquis) 5 mg PO BID Blood clot prevention/tx 06/07/21
levothyroxine 75 mcg tablet 37.5 mcg (1/2 x 75 mcg) PO DAILY@0700 Thyroid 06/10/21
sotalol 80 mg tablet 80 mg PO BID 07/27/21
vitamin B complex 1 tab PO NOON supplement 06/16/22
finasteride 5 mg tablet 5 mg PO DAILY #0 tabs 06/22/22
nifedipine 30 mg tablet,extended release 24 hr 60 mg PO DAILY@0700 blood pressure 09/11/23
therapeutic multivitamin 1 tab PO NOON supplement 09/11/23
acetaminophen 500 mg tablet (Tylenol Extra Strength) 1,000 mg PO Q6HPRN PRN mild pain 12/09/23
docusate sodium 100 mg capsule (Colace) 100 mg PO BIDPRN PRN constipation 12/09/23
methenamine hippurate 1 gram tablet (Hiprex) 1 g PO DAILY Urinary Issue 12/09/23
polyethylene glycol 3350 17 gram oral powder packet 17 g PO DAILYPRN PRN constipation 12/09/23
psyllium husk 3.4 gram/5.4 gram oral powder (Metamucil) 1 - 2 tbsp PO BIDPRN PRN constipation 01/21/24
Review of Systems
-
A 12 point ROS was completed and negative except as noted: Yes
Respiratory: Reports Cough; Denies Trouble Breathing
Cardiac: Denies Chest Pain
Abdomen/GI: Reports Abdominal Pain and Constipated
: Reports Palm
Physical Exam
Vital Signs
Vital Signs
Temp Pulse Resp BP Pulse Ox
99.0 F 85 23 127/63 94
01/21/24 13:39 01/21/24 15:30 01/21/24 15:30 01/21/24 14:00 01/21/24 14:15
Physical Exam
General: Other (Drowsy arousable)
HEENT: Moist mucous membranes
Respiratory: Clear
Cardiac: S1/S2 and Regular Rhythm
GI: Soft and Other (Mild diffuse tenderness. No guarding)
Skin: Warm, Ulcers (Bilateral heels with ulcers. Also has right second and third toe dorsal aspect ulcers) and Other
Neuro: Other (Drowsy arousable. Mild weakness of the right side especially in the right leg-chronic)
Laboratory Results
-
01/21/24 13:54
01/21/24 13:54
Laboratory Results
Total Bilirubin Cancelled 01/21/24 13:54
AST Cancelled 01/21/24 13:54
ALT Cancelled 01/21/24 13:54
Alkaline Phosphatase Cancelled 01/21/24 13:54
Data Reviewed
-
CT Scan: Report Reviewed by me (CT of the head-mild atrophy. No acute changes. 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 Progress. Moderate periventricular small vessel disease. Old bilateral lacunar infarcts. Mild nonacute right ethmoid sinusitis.) and
Other (CT abdomen pelvis-new moderate abdominal and pelvic lymphadenopathy. Mild blastic cultures metastatic disease. Mild left hydro nephrosis probably due to displacement of ureteral by upper abdomen lymphadenopathy. Small pleural effusion.
Minimal basilar atelectasis. Gallstones. Bilateral simple.)
Impression/Plan
-
IMPRESSION/PLAN:
# TME-likely secondary to infection possible UTI
Also rule out aspiration pneumonia
Chest x-ray and COVID also to be tested
# UTI
Treat as catheter related UTI
Continue npergmviupe-axwwfrzhacunnh-ejkxrco's had before with no reaction here
Wait for urine cultures
Patient was on Hiprex for recurrent UTI-holding on antibiotics
# Lymphadenopathy
Likely malignancy
Also has blastic osseous metastatic disease-new
Need to rule out prostate cancer
Check PSA
Hematology oncology evaluation
# Bilateral heel ulcers and dorsal toes ulcer on the right
Wound care evaluation
LEX
# Constipation-bowel regimen
# Anemia-check iron studies
# Mild wcislyewetls-qyuqdd-ix
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
# Paroxysmal atrial fibrillation
History of CTI ablation 2010
Continue sotalol and Eliquis
# Hypertension
Continue nifedipine 60 mg daily
# Hypothyroidism-continue Synthroid 37.5 mcg
# Enlarged prostate-continue finasteride . Has had a Palm for the past 18 months
# Bipolar disease-continue divalproex
# Hyperlipidemia-continue statin
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
H/O pontine infarct with dysphagia s/p PEG tube with subsequent removal 2015
Continue Eliquis and statin
# History of IVC filter
# Sleep apnea-noncompliant with CPAP at home
# Gallstones
# Diverticulosis
# DVT prophylaxis-Eliquis
# CODE STATUS-DNR per discussion with
Discussed with at bedside. Discussed plan of care.
Time over 75 min
[2024-01-21 18:53] LABS: COVID-19 Antigen Negative (Negative)
[2024-01-21 19:06] LABS: Iron 33 ug/dl (49-181)
[2024-01-21 19:16] LABS: Percent Saturation 14 % (20-50); Total Iron Binding Capacity 235 ug/dl (261-462)
[2024-01-21] MEDS: MILK OF MAGNESIA 30 ML PO (19:30)
[2024-01-21 19:56] LABS: Vitamin B12 768 pg/ml (239-931)
[2024-01-21] MEDS: BETAPACE 80 MG PO (21:48)
[2024-01-21] MEDS: NSS 1000 IV (21:48)
[2024-01-21] MEDS: ELIQUIS 5 MG PO (21:49)
[2024-01-21] MEDS: COLACE 100 MG PO (21:49)
[2024-01-21] MEDS: SENOKOT 17.2 MG PO (21:49)
[2024-01-21] MEDS: LIPITOR 10 MG PO (21:49)
[2024-01-22] VITALS (8 sets, daily range): BP systolic 132–165; BP diastolic 63–95; PULSE 80–81; O2SAT 93–94; BMI 24.7
[2024-01-22] MEDS: PROCARDIA XL (EXTENDED RELEASE) 60 MG PO (06:11)
[2024-01-22] MEDS: SYNTHROID 37.5 MCG PO (06:14)
[2024-01-22 07:28] LABS: Hematocrit 30.3 % (39.0-52.0); Hemoglobin 9.8 g/dL (13.0-18.0); Mean Corp Hgb Conc. 32.3 g/dL (33.0-37.0); Mean Corpuscular Hgb 31.6 pg (27.0-31.0); Mean Corpuscular Volume 97.7 fL (80.0-94.0); Mean Platelet Volume 9.8 fL (7.4-10.4); Platelet Count 217 10^3/uL (130-400); Red Cell Dist. Width 15.2 % (11.5-14.5); White Blood Cell Count 11.2 10^3/uL (4.8-10.8)
[2024-01-22 08:02] LABS: Blood Urea Nitrogen 17 mg/dl (9-20); Calcium 9.1 mg/dl (8.4-10.2); Carbon Dioxide 27 mmol/L (22-30); Chloride 102 mmol/L (98-107); Estimated Creatinine Clearance 104 ml/min; Glucose 99 mg/dl (70-99); Magnesium 2.2 mg/dl (1.6-2.3); Potassium 4.3 mmol/L (3.5-5.1); Sodium 136 mmol/L (135-145); eGFR > 60.00
--- NOTE | 2024-01-22 08:47 | VNURNOTE ---
Chart reviewed. Patient is current with VN. Resumption referral placed in [facility]. Will continue to watch hospital course.
[2024-01-22] MEDS: MIRALAX 17 GRAMS PO (09:43)
[2024-01-22] MEDS: COLACE 100 MG PO ×2 (09:43→20:09)
[2024-01-22] MEDS: ELIQUIS 5 MG PO ×2 (09:44→20:09)
[2024-01-22] MEDS: SENOKOT 17.2 MG PO ×2 (09:45→20:09)
[2024-01-22] MEDS: PROSCAR 5 MG PO (09:46)
[2024-01-22] MEDS: BETAPACE 80 MG PO ×2 (09:46→20:15)
--- NOTE | 2024-01-22 10:03 | CON.ONC ---
Impression
Impression
- blastic appearing bone lesion L2
- abdominal and pelvic adenopathy
- elevated PSA
- MDS
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
Plan
Plan
- imaging findings with an elevated PSA is suspicious for metastatic prostate cancer with at least one bone lesion, possible LN involvement.
- MDS not commonly associated with adenopathy however WM could be and prior BMbx suggestive for MGUS however labs not suggestive for it. repeat SPEP, FLC. check flow cyto with elevated AMC however this seems to be reactive. no splenomegaly.
- reviewed possible diagnosis of metastatic CSPC with pt and . sites of possible disease not easy to bx. It is unclear if he would want tx with other comorbidities, decreased mobility/deconditioning. pt known to [facility] for MDS. Recommend non-urgent
evaluation in office once tx'ed for UTI, possible rehab/SNF to improve PS. At that time can repeat PSA, check PSMA PET for accurate staging and discuss management options based on GOC.
Patient History
History of Present Illness
Ghulam is an 83 yo M w/ hx of MDS not on tx, CVA, Sleep apnea, pulmonary embolism, atrial fibrillation, history DVT, hypertension, hyperlipidemia, diverticulosis, hemorrhoids, GERD, neurogenic bladder, enlarged prostate, ambulatory dysfunction, DJD,
hypothyroidism, anemia, bipolar disease who presented with weakness, pelvic pain. UA consistent with UTI. CT A/P showed New moderate abdominal and pelvic lymphadenopathy as described above and consistent with malignancy until proven
otherwise.Findings suggesting mild blastic osseous metastatic disease at L2. Mild left hydronephrosis probably due to displacement of the ureter by the upper abdominal lymphadenopathy. He has known hx of BPH for which he followed with urology, no
known hx of prostate cancer. Denies back pain, SOB. He recently had productive cough which is better. Denies weight loss.
Regarding his MDS, he was diagnosed in 2020 for work-up for mild macrocytic anemia. His hgb has remained fairly stable overtime with most recent in June 12.3 g/dl. CBC on this admission notable for WBC 13.3 with AMC 1,900, hgb 10.8. Iron studies
suggestive for inflammation with high ferritin, low IS.
Patient Medication
�Medication �Instructions �Recorded �Confirmed �Last Taken �Type
glucosamine sulfate dipotassium Cl 1 cap PO NOON Supplement 07/16/20 01/21/24 12/08/23 History
500 mg-chondroitin 400 mg capsule
(Glucosamine Sulfate 2
KCL-Chondroitin)
atorvastatin 10 mg tablet 10 mg PO DAILY@2000 High 09/25/20 01/21/24 12/08/23 History
cholesterol
divalproex 500 mg tablet,delayed 1,000 mg PO DAILY@1700 03/26/21 01/21/24 12/08/23 History
release Neurological Condition
omega 7-svw-nrj-fish oil 900 1 cap PO NOON Supplement ##0 03/26/21 01/21/24 12/08/23 History
mg-1,400 mg capsule,delayed release
apixaban 5 mg tablet (Eliquis) 5 mg PO BID Blood clot 06/07/21 01/21/24 12/08/23 History
prevention/tx
levothyroxine 75 mcg tablet 37.5 mcg (1/2 x 75 mcg) PO 06/10/21 01/21/24 12/08/23 Rx
DAILY@0700 Thyroid
sotalol 80 mg tablet 80 mg PO BID 07/27/21 01/21/24 12/08/23 Rx
vitamin B complex 1 tab PO NOON supplement 06/16/22 01/21/24 Unknown History
finasteride 5 mg tablet 5 mg PO DAILY #0 tabs 06/22/22 01/21/24 12/08/23 Rx
nifedipine 30 mg tablet,extended 60 mg PO DAILY@0700 blood pressure 09/11/23 01/21/24 12/08/23 History
release 24 hr
therapeutic multivitamin 1 tab PO NOON supplement 09/11/23 01/21/24 Unknown History
acetaminophen 500 mg tablet 1,000 mg PO Q6HPRN PRN mild pain 12/09/23 01/21/24 Unknown History
(Tylenol Extra Strength)
docusate sodium 100 mg capsule 100 mg PO BIDPRN PRN constipation 12/09/23 01/21/24 Unknown History
(Colace)
methenamine hippurate 1 gram 1 g PO DAILY Urinary Issue 12/09/23 01/21/24 12/08/23 History
tablet (Hiprex)
polyethylene glycol 3350 17 gram 17 g PO DAILYPRN PRN constipation 12/09/23 01/21/24 Unknown History
oral powder packet
psyllium husk 3.4 gram/5.4 gram 1 - 2 tbsp PO BIDPRN PRN 01/21/24 01/21/24 Unknown History
oral powder (Metamucil) constipation
Active Medications
Generic Name Dose Route Start Last Admin
Trade Name Freq PRN Reason Stop Dose Admin
Acetaminophen 1,000 mg 01/21/24 20:27
Acetaminophen 500 Mg Tablet PO 02/18/24 20:26
Q6HPRN PRN
mild pain
Apixaban 5 mg 01/21/24 20:27 01/22/24 09:44
Apixaban (Eliquis) 5 Mg Tablet PO 02/18/24 20:26 5 mg
BID RICKY Administration
Atorvastatin Calcium 10 mg 01/21/24 20:27 01/21/24 21:49
Atorvastatin (Lipitor) 10 Mg Tablet PO 02/18/24 20:26 10 mg
DAILY@2000 RICKY Administration
Bisacodyl 10 mg 01/21/24 20:27
Bisacodyl 10 Mg Rectal Suppository RECTAL 02/18/24 20:26
[id number] PRN
constipation
Ceftriaxone Sodium 1,000 mg 01/22/24 18:00
Ceftriaxone 1000 Mg / 10 Ml Vial IV
Q24H RICKY
Divalproex Sodium 1,000 mg 01/22/24 17:00
Divalproex 500 Mg Delayed Release (12 Hr) Tablet PO 02/19/24 16:59
DAILY@1700 RICKY
Docusate Sodium 100 mg 01/21/24 20:27 01/22/24 09:43
Docusate Sodium 100 Mg Capsule PO 02/18/24 20:26 100 mg
BID RICKY Administration
Finasteride 5 mg 01/22/24 08:00 01/22/24 09:46
Finasteride 5 Mg Tablet PO 02/19/24 07:59 5 mg
DAILY RICKY Administration
Sodium Chloride 1,000 mls @ 50 mls/hr 01/21/24 20:27 01/21/24 21:48
Nss IV 01/22/24 16:26 1,000 mls
.Q20H RICKY Administration
Levothyroxine Sodium 37.5 mcg 01/22/24 06:00 01/22/24 06:14
Levothyroxine 75 Mcg Tablet PO 02/19/24 05:59 37.5 mcg
DAILY@0600 RICKY Administration
Multivitamins Therapeutic 1 tablet 01/22/24 12:00
Multivitamin Tablet PO 02/19/24 11:59
NOON RICKY
Nifedipine 60 mg 01/22/24 07:00 01/22/24 06:11
Nifedipine 60 Mg Extended Release Tablet PO 02/19/24 06:59 60 mg
DAILY@0700 RICKY Administration
Polyethylene Glycol 17 grams 01/22/24 08:00 01/22/24 09:43
Polyethylene Glycol Powder 17 Grams Packet PO 02/19/24 07:59 17 grams
DAILY RICKY Administration
Polyethylene Glycol 17 grams 01/21/24 20:27
Polyethylene Glycol Powder 17 Grams Packet PO 02/18/24 20:26
DAILYPRN PRN
constipation
Senna/Docusate Sodium 1 tablet 01/21/24 20:27
Docusate W/Senna (Sunitha-Colace) Tablet PO 02/18/24 20:26
BIDPRN PRN
constipation
Sennosides 17.2 mg 01/21/24 20:27 01/22/24 09:45
Sennosides (Senokot) 8.6 Mg Tablet PO 02/18/24 20:26 17.2 mg
BID RICKY Administration
Sodium Chloride 0 flush 01/21/24 22:00
Sodium Chloride 0.9% (Flush) Syringe IV 02/18/24 21:59
PER PROTOCOL RICKY
Sotalol HCl 80 mg 01/21/24 20:27 01/22/24 09:46
Sotalol 80 Mg Tablet PO 02/18/24 20:26 80 mg
BID RICKY Administration
Sterile Water 10 ml 01/22/24 18:00
Sterile Water For Injection 10 Ml Vial IV 02/19/24 17:59
Q24H RICKY
Review of Systems
-
History Source: Patient and Family
Constitutional: Reports Fatigue and Weakness; Denies Fever or Weight Loss
Respiratory: Reports Cough; Denies Trouble Breathing
GI: Reports Abdominal Pain; Denies Nausea
: Denies Flank Pain
Musculoskeletal: Denies Joint Pain
Neuro: Reports Weakness
Physical Exam
-
General: No Apparent Distress, Comfortable and Appears Chronically Ill
HEENT: Negative Jaundice
Cardiology: Normal Sinus Rhythm
Pulmonary: Clear
Musculoskeletal: No Edema
Neurology: Non Focal
Labs
Lab Results
WBC 11.2 10^3/uL (4.8-10.8) H 01/22/24 06:37
RBC 3.10 10^6/uL (4.70-6.10) L 01/22/24 06:37
Hgb 9.8 g/dL (13.0-18.0) L 01/22/24 06:37
Hct 30.3 % (39.0-52.0) L 01/22/24 06:37
MCV 97.7 fL (80.0-94.0) H 01/22/24 06:37
MCH 31.6 pg (27.0-31.0) H 01/22/24 06:37
MCHC 32.3 g/dL (33.0-37.0) L 01/22/24 06:37
RDW 15.2 % (11.5-14.5) H 01/22/24 06:37
Plt Count 217 10^3/uL (130-400) 01/22/24 06:37
MPV 9.8 fL (7.4-10.4) 01/22/24 06:37
Abs Immat Gran (auto) 0.1 10^3/uL (0-0.05) H 01/21/24 13:54
Absolute Neuts (auto) 9.9 10^3/uL (1.4-6.5) H 01/21/24 13:54
Absolute Lymphs (auto) 1.3 10^3/uL (1.2-3.4) 01/21/24 13:54
Absolute Monos (auto) 1.9 10^3/uL (0.1-0.6) H 01/21/24 13:54
Absolute Eos (auto) 0.0 10^3/uL (0-0.7) 01/21/24 13:54
Absolute Basos (auto) 0.0 10^3/uL (0-0.2) 01/21/24 13:54
Immature Gran % 0.5 % (0-0.5) 01/21/24 13:54
Neutrophils % 75.2 % (42.2-75.2) 01/21/24 13:54
Lymphocytes % 9.6 % (20.5-51.1) L 01/21/24 13:54
Monocytes % 14.5 % (1.7-9.3) H 01/21/24 13:54
Eosinophils % 0.0 % (0-6) 01/21/24 13:54
Basophils % 0.2 % (0-2) 01/21/24 13:54
Creatinine 0.6 mg/dL (0.7-1.3) L 01/22/24 06:37
Vital Signs
Vital Signs
Temp Pulse Resp BP Pulse Ox
99.4 F 76 20 150/73 95
01/22/24 07:51 01/22/24 07:51 01/22/24 07:51 01/22/24 07:51 01/22/24 07:51
--- NOTE | 2024-01-22 12:00 | WOUNDNOTE ---
WO RN note: Patient admitted with UTI, weakness, possible malignancy. with patient. He is current with [facility]. SNF planned when discharged.
See H&P for complete history.
PMH: dysphagia, CVA with R sided weakness, sleep apnea, pulmonary embolism, a fib, DVT, HTN, neurogenic bladder, enlarged prostate, ambulation dysfunction, DJD, anemia, bipolar, IVC filter, orthopedic surgeries, former smoker, heels ulcers.
Wound Location and type/assessment: Patient admitted with: bilateral deep dermal stage 2 vs stage 3 heel pressure injuries and also possible PAD. Patient sitting in recliner chair. Arterial Doppler result pending. L toes cool. Bilateral blanchable
buttocks red and intact.
Appetite: poor however eats meals.
Pressure redistribution devices in place: [employer] Accumax. RN Niki plans to apply a Waffle air overlay. Patient stood with walker and assist during sacral skin assessment.
Plan: Heel dressings changed. Air chair cushion given. Nurse Niki assisted with standing patient with walker during sacral skin assessment. Instructed and patient pressure injury prevention and heel relief measures. t/c SPD and ordered
bariatric air chair cushion for distal part of mattress and TruVue lite boot to try. Nurse Niki to place bariatric air chair cushion for heels in bed and try the TruVue lite boot/s. mentioned patient tends to knock pillows out from under his
heels.
Will confirm orders with hospitalist.
Care plan to be updated and will follow as needed.
Note to case management of equipment requested for discharge: Air mattress recommended at SNF.
Recommend follow up at wound care center upon discharge.
[2024-01-22] MEDS: THERAGRAN 1 TABLET PO (12:38)
[2024-01-22] MEDS: SENOKOT-S 1 TABLET PO (12:40)
--- NOTE | 2024-01-22 12:57 | W.PN.HOSP.TC ---
Today's Communication/Plan
-
see bold
Assessment / Plan
Assessment / Plan
Gen: NAD, Awake and alert, appears chronically ill
Eyes: EOMI, PERRLA, no scleral icterus.
Neck: supple.
CV: RRR, +S1/S2, no m/r/g.
Resp: CTAB, no rales, wheezes, or rhonchi.
Abd: +BS, soft, NT, ND
Skin: No rashes.
Neuro: CN 2-12 intact, non-focal.
Psych: Normal mood and affect.
CT A/P: New moderate abdominal and pelvic lymphadenopathy as described above and consistent with malignancy until proven otherwise. Findings suggesting mild blastic osseous metastatic disease. New. Mild left hydronephrosis probably due to
displacement of the ureter by the upper abdominal lymphadenopathy. New. Tiny left pleural effusion. New. Minimal bibasilar atelectasis. Improved on the right. New on the left. Gallstones. Stable. Bilateral simple renal cysts. Stable. Moderate fecal
material throughout the colon. Moderate diverticulosis. Stable. Severe diffuse bladder wall thickening partially due to limited distention. Cystitis and bladder outlet obstruction not excluded. New. Palm catheter present in the bladder. New.
CT head: No acute intracranial abnormality noted. Mild atrophy. Stable. 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 Clinical correlation recommended. Progressed. Moderate periventricular small vessel ischemic disease. Stable. Old
bilateral lacunar infarcts. Stable. Mild nonacute right ethmoid sinusitis. Stable.
CXR: Tiny left pleural effusion. New.
Acute metabolic encephalopathy likely due to acute CAUTI:
-currently on Rocephin
-UCx with GNR (that's the only isolated), cont to follow for speciation and susceptibilities
-Leukocytosis improving
Bilateral heel ulcers and R dorsal toe ulcer:
-check B/L LE arterial U/S with ABIs
-wound care evaluation
Abdominal pelvic lymphadenopathy and mild blastic osseous metastatic disease:
-h/o enlarged prostate on finasteride, has had a Palm for the past 18 months
-with elevated PSA concern for metastatic prostate cancer
-Patient has been seen by oncology
-Case discussed with Dr. Vergara and outpt w/u is recommended. Dr. Vergara also notes pt's performance status is poor.
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
Other problems:
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
Paroxysmal atrial fibrillation: h/o ablation 2010, cont sotalol/Eliquis
Essential Hypertension: Cont Nifedipine
Hypothyroidism: cont Synthroid
Other problems:
Anemia of chronic disease and Fe def: Start PO Fe
Bipolar d/o: cont divalproex
HLD: Cont statin
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
h/o IVC filter
HERNANDO, noncompliant with CPAP at home
DNR/Eliquis
Total time spent on today's encounter was 50 minutes which included time spent in counseling the patient/family regarding diagnosis and treatment plan as listed above, goals of care, and symptom management. Case was discussed with nursing staff,
specialists, and care coordinators/case management. All labs and imaging personally reviewed by me. Remainder the time spent in detailed review of previous records, lab data, imaging, and other medical provider documentation.
Anticipated Discharge: 24 - 48 hours
Subjective/Interval History
-
Date of Service: January 22, 2024
No new complaints.
Objective Data
-
Labs:
Laboratory Results
01/22/24
06:37
WBC 11.2 H
Hgb 9.8 L
Hct 30.3 L
Plt Count 217
Sodium 136
Potassium 4.3
Chloride 102
Carbon Dioxide 27
BUN 17
Creatinine 0.6 L
Glucose 99
Calcium 9.1
Vital Signs:
Vital Signs
Temp Pulse Resp BP Pulse Ox
98.2 F 75 16 132/67 97
01/22/24 11:22 01/22/24 11:22 01/22/24 11:22 01/22/24 11:22 01/22/24 11:22
I&O
01/21/24 01/22/24 01/23/24
06:59 06:59 06:59
Output Total 1000 / 1000
Balance -1000 / -1000
--- NOTE | 2024-01-22 14:11 | WOUNDNOTE ---
WOC RN note: mark Spence re: recommend air mattress at SNF; Patient is at high risk for sacral pressure injury; he has red buttocks and heel pressure injuries.
--- NOTE | 2024-01-22 14:49 | CM ---
manager freelance reviewed patient's chart and met with patient and patient lives with with his spouse in a 2 story home, with no steps to enter, patient is independent with adl's and uses walker, w/c with ambulation. Patient has chair lift in home.
Per spouse patient is [facility] with [id number] who are following patient in home and are ordering a hospital bed for patient after discharge, patient is currently admitted with UTI and aspiration pneumonia. Wound care nurse is recommending an air mattress
for patient. Physical therapy are recommending skilled placement, options reviewed with patient and spouse and patient has selected [facility], referral sent to [facility].
Plan; Await determination from admissions at [facility].
[2024-01-22] MEDS: DEPAKOTE (12 HR RELEASE) 1000 MG PO (16:55)
[2024-01-22] MEDS: TYLENOL 1000 MG PO (16:56)
[2024-01-22] MEDS: ROCEPHIN 1000 MG IV (18:35)
[2024-01-22] MEDS: STERILE WATER FOR INJECTION 10 ML IV (18:35)
[2024-01-22] MEDS: LIPITOR 10 MG PO (20:09)
[2024-01-22] MEDS: FEOSOL 325 MG PO (20:09)
[2024-01-23] VITALS (7 sets, daily range): BP systolic 122–156; BP diastolic 62–74
[2024-01-23] MEDS: PROCARDIA XL (EXTENDED RELEASE) 60 MG PO (06:16)
[2024-01-23] MEDS: SYNTHROID 37.5 MCG PO (06:16)
[2024-01-23] MEDS: TYLENOL 1000 MG PO ×3 (08:47→21:49)
[2024-01-23] MEDS: PROSCAR 5 MG PO (08:48)
[2024-01-23] MEDS: SENOKOT 17.2 MG PO ×2 (08:49→20:17)
[2024-01-23] MEDS: FEOSOL 325 MG PO ×2 (08:49→20:17)
[2024-01-23] MEDS: COLACE 100 MG PO ×2 (08:50→20:17)
[2024-01-23] MEDS: ELIQUIS 5 MG PO ×2 (08:50→20:17)
[2024-01-23] MEDS: MIRALAX 17 GRAMS PO (08:50)
[2024-01-23] MEDS: BETAPACE 80 MG PO ×2 (08:51→20:18)
--- NOTE | 2024-01-23 09:33 | W.PN.HOSP.TC ---
Today's Communication/Plan
-
see bold
Assessment / Plan
Assessment / Plan
Gen: NAD, Awake and alert, appears chronically ill
Eyes: EOMI, PERRLA, no scleral icterus.
Neck: supple.
CV: remains RRR, +S1/S2, no m/r/g.
Resp: remains CTAB, no rales, wheezes, or rhonchi.
Abd: remains +BS, soft, NT, ND
Skin: No rashes.
Neuro: CN 2-12 intact, non-focal.
Psych: Normal mood and affect.
CT A/P: New moderate abdominal and pelvic lymphadenopathy as described above and consistent with malignancy until proven otherwise. Findings suggesting mild blastic osseous metastatic disease. New. Mild left hydronephrosis probably due to
displacement of the ureter by the upper abdominal lymphadenopathy. New. Tiny left pleural effusion. New. Minimal bibasilar atelectasis. Improved on the right. New on the left. Gallstones. Stable. Bilateral simple renal cysts. Stable. Moderate fecal
material throughout the colon. Moderate diverticulosis. Stable. Severe diffuse bladder wall thickening partially due to limited distention. Cystitis and bladder outlet obstruction not excluded. New. Palm catheter present in the bladder. New.
CT head: No acute intracranial abnormality noted. Mild atrophy. Stable. 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 Clinical correlation recommended. Progressed. Moderate periventricular small vessel ischemic disease. Stable. Old
bilateral lacunar infarcts. Stable. Mild nonacute right ethmoid sinusitis. Stable.
CXR: Tiny left pleural effusion. New.
Acute metabolic encephalopathy likely due to acute CAUTI:
-UCx with now with Pseudomonas and Enterococcus, cont to follow for susceptibilities
-stop Rocephin, start Zosyn
-c/s ID
-trend Leukocytosis
-Exchange Palm because, as per nursing, Palm has not been exchanged this admission
Bilateral heel ulcers and R dorsal toe ulcer:
-check B/L LE arterial U/S with ABIs
-wound care evaluation
Abdominal pelvic lymphadenopathy and mild blastic osseous metastatic disease:
-h/o enlarged prostate on finasteride, has had a Palm for the past 18 months
-with elevated PSA concern for metastatic prostate cancer
-Patient has been seen by oncology
-Case discussed with Dr. Vergara and outpt w/u is recommended. Dr. Vergara also notes pt's performance status is poor.
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
Other problems:
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
Paroxysmal atrial fibrillation: h/o ablation 2010, cont sotalol/Eliquis
Essential Hypertension: Cont Nifedipine
Hypothyroidism: cont Synthroid
Other problems:
Anemia of chronic disease and Fe def: Start PO Fe
Bipolar d/o: cont divalproex
HLD: Cont statin
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
h/o IVC filter
HERNANDO, noncompliant with CPAP at home
DNR/Eliquis
Total time spent on today's encounter was 51 minutes which included time spent in counseling the patient/family regarding diagnosis and treatment plan as listed above, goals of care, and symptom management. Case was discussed with nursing staff,
specialists, and care coordinators/case management. All labs and imaging personally reviewed by me. Remainder the time spent in detailed review of previous records, lab data, imaging, and other medical provider documentation.
Anticipated Discharge: 24 - 48 hours
Subjective/Interval History
-
Date of Service: January 23, 2024
Objective Data
-
Vital Signs:
Vital Signs
Temp Pulse Resp BP Pulse Ox
98.0 F 75 18 156/73 93
01/23/24 07:40 01/23/24 07:40 01/23/24 07:40 01/23/24 07:40 01/23/24 07:40
I&O
01/22/24 01/23/24 01/24/24
06:59 06:59 06:59
Intake Total 1440 / 1440
Output Total 1000 / 1000 1100 / 1100
Balance -1000 / -1000 340 / 340
--- NOTE | 2024-01-23 10:42 | W.PN.ONC2 ---
Today's Communication / Plan
-
UTI management per primary service and ID
OP follow up with Dr. Rizo upon discharge
Pt may benefit from ambulatory palliative care service with advanced age, suspected advanced malignancy, declining PS, chronic disease co-management for advanced care planning
Impression
Impression
- blastic appearing bone lesion L2
- abdominal and pelvic adenopathy
- elevated PSA
- MDS
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
Plan
Plan
- imaging findings with an elevated PSA is suspicious for metastatic prostate cancer with at least one bone lesion, possible LN involvement.
- MDS not commonly associated with adenopathy however WM could be and prior BMbx suggestive for MGUS however labs not suggestive for it. f/u repeat SPEP, FLC, flow cyto with elevated AMC however this seems to be reactive. no splenomegaly.
-ddx includes metastatic CSPC. Sites of possible disease not easy to bx. It is unclear if he would want tx with other comorbidities, decreased mobility/deconditioning. pt known to [facility] for MDS. Recommend non-urgent evaluation in office once tx'ed for
UTI, possible rehab/SNF to improve PS. At that time can repeat PSA, check PSMA PET for accurate staging and discuss management options based on GOC.
Subjective/Objective
Chief Complaint
weakness and pelvic pain
improving productive cough
using miralax, senna, and colace for constipation
Subjective
no new complaints
Vital Signs:
Vital Signs
Temp Pulse Resp BP Pulse Ox
98.0 F 75 18 156/73 93
01/23/24 07:40 01/23/24 07:40 01/23/24 07:40 01/23/24 07:40 01/23/24 07:40
Lab Results:
Laboratory Data
WBC 11.2 10^3/uL (4.8-10.8) H 01/22/24 06:37
Hgb 9.8 g/dL (13.0-18.0) L 01/22/24 06:37
Plt Count 217 10^3/uL (130-400) 01/22/24 06:37
eGFR > 60.00 01/22/24 06:37
Physical Exam
General: No Apparent Distress, Comfortable and Appears Chronically Ill
HEENT: Negative Jaundice
Cardiology: Normal Sinus Rhythm
Pulmonary: Clear
Musculoskeletal: No Edema
Neurology: Non Focal
Review of Systems
Review of Systems
ROS notable for subjective, otherwise negative
[2024-01-23 10:51] LABS: Hematocrit 30.7 % (39.0-52.0); Hemoglobin 9.9 g/dL (13.0-18.0); Mean Corp Hgb Conc. 32.2 g/dL (33.0-37.0); Mean Corpuscular Hgb 30.7 pg (27.0-31.0); Mean Corpuscular Volume 95.3 fL (80.0-94.0); Mean Platelet Volume 9.8 fL (7.4-10.4); Platelet Count 263 10^3/uL (130-400); Red Blood Cell Count 3.22 10^6/uL (4.70-6.10); White Blood Cell Count 9.5 10^3/uL (4.8-10.8)
[2024-01-23] MEDS: ZOSYN 50 IV (10:56)
[2024-01-23 11:14] LABS: Blood Urea Nitrogen 17 mg/dl (9-20); Calcium 9.1 mg/dl (8.4-10.2); Carbon Dioxide 26 mmol/L (22-30); Chloride 101 mmol/L (98-107); Estimated Creatinine Clearance 104 ml/min; Glucose 113 mg/dl (70-99); Potassium 4.3 mmol/L (3.5-5.1); Sodium 136 mmol/L (135-145); eGFR > 60.00
--- NOTE | 2024-01-23 12:07 | PTOTSP ---
Speech Therapy Assessment
Patient is considered at elevated risk for aspiration given past history of such, current acute illness and limited tolerance with HOB elevation. Overt signs of aspiration observed when drinking thin liquid by straw in rapid succession. However,
patient tolerated thin liquid by single straw sips.
Recommend
1. Continue Regular solids and thin liquids
2. Single sips of liquid (cup or straw)
3. Meds whole in applesauce.
4. Aspiration precautions.
5. Seated in chair or upright in bed - although back pain makes adequate elevation in bed difficut.
6. If coughing persists with current diet and strategies, VSE would be indicated.
ST to follow and determine need for objective testing.
[2024-01-23] MEDS: THERAGRAN 1 TABLET PO (12:20)
--- NOTE | 2024-01-23 14:13 | CON.ID ---
Consultation
-
Date/Time Consultation Requested: 01/23/24 9:31
Date/Time Consultation Performed: 01/23/24 14:13
Requesting Provider: Dr Durham
Performing Provider: Dr Garcia
Reason for Consultation: UTI
Chief Complaint / Past History
Chief Complaint
generalized weakness
History of Present Illness
Mr Quiroz is an 83 year old male with history of MDS not on treatment, BPH/neurogenic bladder with chronic brunson, bipolar disease who presented here for generalized weakness for 4 days. Reports a fever the night before presentation. Also some
suprapubic tenderness and sensation of urgency despite having a brunson catheter in place. He doesnt recall when brunson last replaced. No no flank or back pain. reported some mild coughing. No dyspnea. Some constipation. Also some pain and
wounds present on the bilateral heels present on arrival, these wounds are superficial, no erythema or warmth - mild serous drainage. Also with eschar over the right second and third toes.
Since arrival here he has been afebrile, bp stable, wbc initially 13 now 9.5, hgb 9.9, plt 263, cr 0.6, na 136, ua (unclear if from new brunson or old device) 2+ leuk esterase, 26-30 wbc, moderate bacteria, covid ag neg, CXR no infiltrates - tiny
effusion, CT head possible NPH, mild ethmoid sinusitis, During this hospitalization he has been noted to have elevated PSA and generalized lymphadenopathy and oncology is concerned for possible metastatic prostate cancer - outpatient workup is
planned. Patient was initially on ceftriaxone and ampicillin and now on zosyn. ID is consulted for assistance with antibiotic management.
Past History
Additional Past Medical History:
Difficulty with balance, history of CVA, Sleep apnea, pulmonary embolism, atrial fibrillation, history DVT, hypertension, hyperlipidemia, diverticulosis, hemorrhoids, GERD, neurogenic bladder, enlarged prostate, ambulatory dysfunction, DJD,
hypothyroidism, anemia, bipolar disease
Additional Past Surgical History:
Deviated nasal septum surgery, tonsillectomy, hernia repair, knee arthroplasty, knee replacement bilaterally, PEG tube placement and removal, loop recorder, IVC filter, right knee ablation 2009
Allergy History:
cephalexin [Cephalexin] Allergy (Verified 01/23/24 13:20)
Hives
tamsulosin [From Flomax] Allergy (Verified 01/21/24 13:44)
lightheadness, low BP, and passing out
vancomycin Allergy (Verified 01/23/24 13:20)
rash, itching
Medications Reviewed: Yes
Social History
Tobacco: Former Smoker
Alcohol: None
Drug: None
Family History
Family History: Not Pertinent
Review of Systems
Review of Systems
General: Negative Fever or Chills
All systems: All other systems were reviewed and were negative
Vital Signs
Temp Pulse Resp BP Pulse Ox
98.0 F 75 18 156/73 93
01/23/24 07:40 01/23/24 07:40 01/23/24 07:40 01/23/24 07:40 01/23/24 07:40
Physical Exam
Physical Exam
Constitutional: No Acute Distress
Cardiovascular: Regular Rate and S1/S2; Negative Murmur or Rub
Pulmonary: Clear and Symmetric; Negative Wheezes, Rales or Rhonchi
Gastrointestinal: Soft, Non Tender, Non Distended and Normal Bowel Sounds
Genito-Urinary: Suprapubic Tenderness and Clear Urine; Negative CVA Tenderness
Extremities: Other (superficial wounds on bilateral heels without erythema, warmth. Mildly tender. He has heels offloaded and multipodus boots.)
Skin: Warm and Dry; Negative Rash or Jaundice
Lab / Diagnostic Study Results
01/23/24 10:04
01/23/24 10:04
Abs Immat Gran (auto) 0.1 10^3/uL (0-0.05) H 01/21/24 13:54
Absolute Neuts (auto) 9.9 10^3/uL (1.4-6.5) H 01/21/24 13:54
Absolute Lymphs (auto) 1.3 10^3/uL (1.2-3.4) 01/21/24 13:54
Absolute Monos (auto) 1.9 10^3/uL (0.1-0.6) H 01/21/24 13:54
Absolute Basos (auto) 0.0 10^3/uL (0-0.2) 01/21/24 13:54
Immature Gran % 0.5 % (0-0.5) 01/21/24 13:54
Neutrophils % 75.2 % (42.2-75.2) 01/21/24 13:54
Lymphocytes % 9.6 % (20.5-51.1) L 01/21/24 13:54
Monocytes % 14.5 % (1.7-9.3) H 01/21/24 13:54
Eosinophils % 0.0 % (0-6) 01/21/24 13:54
Basophils % 0.2 % (0-2) 01/21/24 13:54
Microbiology Results
Micro:
01/21/24 13:54 Urine Culture - Preliminary
Urine Pseudomonas species
Enterococcus species
Assessment / Plan
CAUTI
- urine culture with 100K Pseudomonas and 100K enterococcus
- agree with zosyn dose adjusted to 4.5 gm IV q6hrs given pseudomonas, not prior enterococcus which was amp sensitive - plan to complete course with oral therapies if possible
- QTc acceptable at 440
- recommend brunson removal and replacement if not already done this admission
Stage 2 Bilateral Heel Wounds
- agree with offloading which patient is compliant with
- defer to wound care
--- NOTE | 2024-01-23 14:19 | CM ---
resource manager forester continues to follow with patient progress and spoke with [facility] admissions. Plan is for skilled placement at [facility].
Plan; Skilled placement at [facility] when stable, waiting on a determination from [facility] admissions.
[2024-01-23] MEDS: ZOSYN 100 IV ×2 (16:21→21:49)
[2024-01-23] MEDS: DEPAKOTE (12 HR RELEASE) 1000 MG PO (16:21)
[2024-01-23] MEDS: LIPITOR 10 MG PO (20:18)
[2024-01-24] VITALS (8 sets, daily range): BP systolic 120–154; BP diastolic 63–99; PULSE 70–71
[2024-01-24 04:29] LABS: Free Lambda Light Chains,Quant 19.94 mg/L (5.71-26.30); Kappa/Lambda Fr Light Ratio 0.96 (0.26-1.65)
[2024-01-24] MEDS: ZOSYN 100 IV ×2 (05:00→09:38)
[2024-01-24] MEDS: SYNTHROID 37.5 MCG PO (05:16)
[2024-01-24] MEDS: PROCARDIA XL (EXTENDED RELEASE) 60 MG PO (06:19)
--- NOTE | 2024-01-24 08:13 | W.PN.ONC2 ---
Addendum entered and electronically signed by Fracisco Rizo MD 01/24/24 08:47:
30 minute coordination of care and discussion with . HZ
Original Note:
Today's Communication / Plan
-
Start Casodex.
Initiate Eligard in ~ 2 weks
Check PSMA PET as outpatient for accurate staging and discuss management options based on GOC.
Called patient's Alysa with update.
Patient will likely need rehab prior post discharge.
Impression
Impression
Suspected metastatic prostate cancer with PSA = 114 and both sharmila and blastic bony metastasis
History of mild relatively stable clinical MDS
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
Plan
Plan
Start Casodex.
Initiate Lupron in ap
Check PSMA PET as outpatient for accurate staging and discuss management options based on GOC.
Subjective/Objective
Chief Complaint
ACS Heme Onc F/U
Subjective
Patient feels weak and fatigued. Previously saw him once a year for mild cytopenias and suspected MDS. His counts were relatively normal and stable. Elevated PSA = 114 just discovered this hospitalization. I had no previous knowledge or
documentation of prior PSAs. CT scan also revealed new evidence of both sharmila and bony malignancy new from June 2022.
Vital Signs:
Vital Signs
Temp Pulse Resp BP Pulse Ox
98.1 F 74 18 127/99 96
01/24/24 07:35 01/24/24 07:35 01/24/24 07:35 01/24/24 07:35 01/24/24 07:35
Lab Results:
Laboratory Data
WBC 9.5 10^3/uL (4.8-10.8) 01/23/24 10:04
Hgb 9.9 g/dL (13.0-18.0) L 01/23/24 10:04
Plt Count 263 10^3/uL (130-400) D 01/23/24 10:04
eGFR > 60.00 01/23/24 10:04
Laboratory Tests
01/21/24
18:34
PSA Screen 114.00 H
Physical Exam
HEENT: No Jaundice
Cardiology: S1 and S2
Pulmonary: Clear
GI: Soft
Extremities: No C/C/E
[2024-01-24] MEDS: MIRALAX 17 GRAMS PO (09:37)
[2024-01-24] MEDS: TYLENOL 1000 MG PO ×2 (09:38→20:26)
[2024-01-24] MEDS: ELIQUIS 5 MG PO (09:39)
[2024-01-24] MEDS: COLACE 100 MG PO ×2 (09:39→20:22)
[2024-01-24] MEDS: SENOKOT 17.2 MG PO ×2 (09:39→20:21)
[2024-01-24] MEDS: PROSCAR 5 MG PO (09:39)
[2024-01-24] MEDS: FEOSOL 325 MG PO ×2 (09:39→20:21)
[2024-01-24] MEDS: BETAPACE 80 MG PO ×2 (09:39→20:21)
[2024-01-24 10:20] LABS: Hematocrit 28.8 % (39.0-52.0); Hemoglobin 9.3 g/dL (13.0-18.0); Mean Corp Hgb Conc. 32.3 g/dL (33.0-37.0); Mean Corpuscular Hgb 31.4 pg (27.0-31.0); Mean Corpuscular Volume 97.3 fL (80.0-94.0); Mean Platelet Volume 9.9 fL (7.4-10.4); Platelet Count 258 10^3/uL (130-400); Red Blood Cell Count 2.96 10^6/uL (4.70-6.10); Red Cell Dist. Width 14.9 % (11.5-14.5); White Blood Cell Count 7.3 10^3/uL (4.8-10.8)
--- NOTE | 2024-01-24 11:00 | W.PN.HOSP.TC ---
Today's Communication/Plan
-
see bold
Assessment / Plan
Assessment / Plan
Gen: NAD, Awake and alert, appears chronically ill
Eyes: EOMI, PERRLA, no scleral icterus.
Neck: supple.
CV: continues to remain RRR, +S1/S2, no m/r/g.
Resp: continues to remain CTAB, no rales, wheezes, or rhonchi.
Abd: continues to remain +BS, soft, NT, ND
Skin: No rashes.
Neuro: CN 2-12 intact
Psych: Normal mood and affect
01/21/24 13:54 Urine Urine Culture - Preliminary
Pseudomonas aeruginosa
Enterococcus species
CT A/P: New moderate abdominal and pelvic lymphadenopathy as described above and consistent with malignancy until proven otherwise. Findings suggesting mild blastic osseous metastatic disease. New. Mild left hydronephrosis probably due to
displacement of the ureter by the upper abdominal lymphadenopathy. New. Tiny left pleural effusion. New. Minimal bibasilar atelectasis. Improved on the right. New on the left. Gallstones. Stable. Bilateral simple renal cysts. Stable. Moderate fecal
material throughout the colon. Moderate diverticulosis. Stable. Severe diffuse bladder wall thickening partially due to limited distention. Cystitis and bladder outlet obstruction not excluded. New. Brunson catheter present in the bladder. New.
CT head: No acute intracranial abnormality noted. Mild atrophy. Stable. 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 Clinical correlation recommended. Progressed. Moderate periventricular small vessel ischemic disease. Stable. Old
bilateral lacunar infarcts. Stable. Mild nonacute right ethmoid sinusitis. Stable.
CXR: Tiny left pleural effusion. New.
B/L LE arterial U/S with ABIs:
RIGHT LOWER EXTREMITY: LEX moderately reduced at 0.66 (prior 1.03). TBI severely reduced at 0.37 (prior 0.69). Arterial duplex examination reveals multiphasic waveforms from the common femoral artery through the popliteal artery. There is a focal
velocity elevation in the popliteal artery at 288 cm/s however the ratio remains less than 2 suggesting a nonsignificant stenosis. Presence of tibial artery disease is suspected.
LEFT LOWER EXTREMITY: LEX moderately reduced at 0.64 (prior 1.02). Toe pressure 0. Arterial duplex examination reveals multiphasic waveforms from the common femoral artery through the distal superficial femoral artery. There is a transition to
monophasic waveforms in the popliteal artery. There is a focal velocity elevation in the mid superficial femoral artery at 268 cm/s (ratio 2.9) suggesting a greater than 50% stenosis at this location. There is an additional velocity elevation in the
popliteal artery at 452 cm/s (ratio 8.3) suggesting a greater than 75% stenosis at this location.
Acute metabolic encephalopathy likely due to acute CAUTI:
-UCx with now with Pseudomonas and Enterococcus, cont to follow for susceptibilities
-cont Zosyn as per ID
-trend Leukocytosis
-brunson exchanged 01/23/24
Bilateral heel ulcers and R dorsal toe ulcer:
-B/L LE arterial U/S with ABIs as above
-c/s vascular
-wound care
Abdominal pelvic lymphadenopathy and mild blastic osseous metastatic disease:
-h/o enlarged prostate on finasteride, has had a Brunson for the past 18 months
-with elevated PSA concern for metastatic prostate cancer
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
-Casodex started, for Eligard in 2 weeks
Other problems:
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
Paroxysmal atrial fibrillation: h/o ablation 2010, cont sotalol/Eliquis
Essential Hypertension: Cont Nifedipine
Hypothyroidism: cont Synthroid
Other problems:
Anemia of chronic disease and Fe def: Start PO Fe
Bipolar d/o: cont divalproex
HLD: Cont statin
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
h/o IVC filter
HERNANDO, noncompliant with CPAP at home
DNR/Eliquis
Total time spent on today's encounter was 50 minutes which included time spent in counseling the patient/family regarding diagnosis and treatment plan as listed above, goals of care, and symptom management. Case was discussed with nursing staff,
specialists, and care coordinators/case management. All labs and imaging personally reviewed by me. Remainder the time spent in detailed review of previous records, lab data, imaging, and other medical provider documentation.
Anticipated Discharge: 24 - 48 hours
Subjective/Interval History
-
Date of Service: January 24, 2024
No new complaints.
Objective Data
-
Labs:
Laboratory Results
01/24/24
10:06
WBC 7.3
Hgb 9.3 L
Hct 28.8 L
Plt Count 258
Sodium Pending
Potassium Pending
Chloride Pending
Carbon Dioxide Pending
BUN Pending
Creatinine Pending
Glucose Pending
Calcium Pending
Vital Signs:
Vital Signs
Temp Pulse Resp BP Pulse Ox
98.1 F 74 18 127/99 96
01/24/24 07:35 01/24/24 07:35 01/24/24 07:35 01/24/24 07:35 01/24/24 07:35
I&O
01/23/24 01/24/24 01/25/24
06:59 06:59 06:59
Intake Total 1440 / 1440 840 / 840
Output Total 1100 / 1100 900 / 900
Balance 340 / 340 -60 / -60
[2024-01-24 11:17] LABS: Blood Urea Nitrogen 16 mg/dl (9-20); Calcium 8.9 mg/dl (8.4-10.2); Carbon Dioxide 25 mmol/L (22-30); Chloride 100 mmol/L (98-107); Estimated Creatinine Clearance 89 ml/min; Glucose 117 mg/dl (70-99); Sodium 136 mmol/L (135-145); eGFR > 60.00
--- NOTE | 2024-01-24 11:47 | CON.VAS ---
Consultation
Consultation Request
Date/Time Consultation Performed: 01/24/24 1130
Requesting Provider: Hospitalist
Performing Provider: Tara Rao, VERONICA-C for Prashanth Barron MD
Reason for Consultation: BL lower extremity wounds
Medical History
-
Chief Complaint: Generalized malaise
History of Present Illness:
This is an 83-year-old male with significant past medical history for MDS, CVA, sleep apnea, pulm embolism, atrial fibrillation, DVT, hypertension, lipidemia, diverticulosis, hemorrhoids, GERD, neurogenic bladder, enlarged prostate, ambulatory
dysfunction, DJD, hypothyroidism, anemia, and bipolar disease who presents to the hospital with symptoms of generalized weakness and fever. Inpatient evaluation concerning for metastatic prostate cancer, and he is currently being treated for UTI.
Vascular surgery has been consulted for right hallux and second digit dry gangrene at the tips of digits and bilateral heel ulcerations. Patient and his are unaware exactly how he developed all the ulcerations. They feel the heel problems
are likely pressure dependent, but the first 2 toes on the right foot they are unclear; they believe they have been ongoing for roughly 2 to 4 weeks. Both patient and deny past vascular surgical interventions or history of peripheral arterial
disease. However, they do note that patient's father required amputations complicated by diabetes. Noninvasive studies reviewed. Right-sided LEX 0.66, left side 0.64. Left-sided toe pressure 0. Right-sided TBI 0.37. Popliteal artery velocity
elevation on the right side. On the left side SFA stenosis identified as well as popliteal stenosis.
Past Medical History
Past Medical History: Arrhythmias (Atrial fibrillation), CVA, GERD, HTN and Other (Pulmonary embolism, DVT, hyperlipidemia, diverticulosis, hemorrhoids, neurogenic bladder, enlarged prostate, ambulatory dysfunction, DJD, anemia, bipolar disease)
Past Surgical History: Tonsilectomy and Other (knee arthroplasty, knee replacement bilaterally, PEG tube placement and removal, loop recorder, IVC filter, deviated nasal septum)
Social History
Tobacco: Former Smoker (20 years smoked from age [age] less than 1 pack a day)
Alcohol: None
Drug: None
Personal:
Living: With Family
Allergies / Home Medications
Allergy/AdvReac Type Severity Reaction Status Date / Time
cephalexin [Cephalexin] Allergy Hives Verified 01/23/24 13:20
tamsulosin [From Flomax] Allergy lightheadness, Verified 01/21/24 13:44
low BP,
and
passing out
vancomycin Allergy rash, Verified 01/23/24 13:20
itching
�Medication �Instructions �Recorded �Confirmed �Type
glucosamine sulfate dipotassium Cl 1 cap PO NOON Supplement 07/16/20 01/21/24 History
500 mg-chondroitin 400 mg capsule
(Glucosamine Sulfate 2
KCL-Chondroitin)
atorvastatin 10 mg tablet 10 mg PO DAILY@2000 High 09/25/20 01/21/24 History
cholesterol
divalproex 500 mg tablet,delayed 1,000 mg PO DAILY@1700 03/26/21 01/21/24 History
release Neurological Condition
omega 9-efl-zsh-fish oil 900 1 cap PO NOON Supplement ##0 03/26/21 01/21/24 History
mg-1,400 mg capsule,delayed release
apixaban 5 mg tablet (Eliquis) 5 mg PO BID Blood clot 06/07/21 01/21/24 History
prevention/tx
levothyroxine 75 mcg tablet 37.5 mcg (1/2 x 75 mcg) PO 06/10/21 01/21/24 Rx
DAILY@0700 Thyroid
sotalol 80 mg tablet 80 mg PO BID 07/27/21 01/21/24 Rx
vitamin B complex 1 tab PO NOON supplement 06/16/22 01/21/24 History
finasteride 5 mg tablet 5 mg PO DAILY #0 tabs 06/22/22 01/21/24 Rx
nifedipine 30 mg tablet,extended 60 mg PO DAILY@0700 blood pressure 09/11/23 01/21/24 History
release 24 hr
therapeutic multivitamin 1 tab PO NOON supplement 09/11/23 01/21/24 History
acetaminophen 500 mg tablet 1,000 mg PO Q6HPRN PRN mild pain 12/09/23 01/21/24 History
(Tylenol Extra Strength)
docusate sodium 100 mg capsule 100 mg PO BIDPRN PRN constipation 12/09/23 01/21/24 History
(Colace)
methenamine hippurate 1 gram 1 g PO DAILY Urinary Issue 12/09/23 01/21/24 History
tablet (Hiprex)
polyethylene glycol 3350 17 gram 17 g PO DAILYPRN PRN constipation 12/09/23 01/21/24 History
oral powder packet
psyllium husk 3.4 gram/5.4 gram 1 - 2 tbsp PO BIDPRN PRN 01/21/24 01/21/24 History
oral powder (Metamucil) constipation
Review of Systems
-
History Source: Patient
Constitutional: Reports Fever and Fatigue
EENT: Reports No Symptoms
Respiratory: Reports No Symptoms
Cardiac: Reports No Symptoms
Abdomen/GI: Reports No Symptoms
: Reports No Symptoms
Musculoskeletal: Reports Other (lower back pain)
Skin: Reports Other (right hallux and second digit toe wound with BL heel wound)
Neurological: Reports No Symptoms
Endocrine: Reports No Symptoms
Physical Exam
Vital Signs
Temp Pulse Resp BP Pulse Ox
98.2 F 72 18 137/68 97
01/24/24 11:02 01/24/24 11:02 01/24/24 11:02 01/24/24 11:02 01/24/24 11:02
Lab Results
01/24/24 10:06
01/24/24 10:06
Physical Exam
General: No Apparent Distress and Comfortable
HEENT: Normocephalic, Anicteric and Atraumatic
Respiratory: Non Labored Respirations
Cardiac: Negative JVD
GI: Soft, Non Tender and Non Distended
Musculoskeletal: Edema (Bilateral lower extremity trace edema)
Skin: Warm and Other (Right first 2 toes with distal tip dry gangrene isolated early not completely dried up. Relatively small/superficial appearing lesions. Bilateral heel ulcerations. Bilateral feet are warm)
Neuro: Awake and Alert
Pulses: Bilateral Femoral: +2 and Left Popliteal: +1 (Bilateral distal pulses nonpalpable)
Assessment / Plan
-
Assessment: 83-year-old male with peripheral arterial disease as evidenced by noninvasive arterial ultrasound with abnormal LEX/TBI and nonhealing bilateral feet wounds, therefore chronic limb threatening ischemia.
Plan:
Recommend revascularization in the setting of wounds given that these present limb threatening problems. Discussed difficulty managing in general heel ulcerations. Would recommend proceeding with r angiography bilateral lower extremity, but
initially proceeding with potential intervention of right lower extremity given distal dry gangrene. Dr. Barron discussed procedure at length and expected outcomes to include: #1 successful endovascular revascularization, #2 need for staged surgical
bypass/surgical intervention, #3 not reconstructable small vessel obliterative disease. He also discussed likely staged right and then left lower extremity interventions if needed, and technical aspects of procedure as well as risks including but
not limited to bleeding, arterial injury/worsened or acute limb ischemia, renal failure. They understand all and wish to proceed. Will plan angiogram tomorrow. Please hold anticoagulation for now. N.p.o. after midnight.
I performed this shared service with the attending. I evaluated the patient [id number] and have entered clinical documentation as shown in the encounter note. I performed the following component(s): history and physical exam. Note that medical
decision making is not final until attested by vascular attending.
--- NOTE | 2024-01-24 11:47 | W.PN.UPDATE ---
Update Note
Progress Note Update
Seen and examined with VERONICA Rao. Full consultation to follow. Briefly 83-year-old male who presents to the hospital with symptoms of generalized weakness. Findings on imaging concerning for metastatic prostate cancer. Followed by oncology now.
Asked to evaluate regarding bilateral lower extremity wounds (bilateral heel pressure ulcerations, right first and second toe distal lesions). Patient has extensive history including history of DVT/PE/IVC filter in
place/stroke/hyperlipidemia/tobacco use (20 years smoked from age [age] less than 1 pack a day). Patient and his are unaware exactly how he developed all the ulcerations. They feel the heel problems are likely pressure dependent, but the
first 2 toes on the right foot they are unclear.
On exam/he is awake and alert. Head is normocephalic and atraumatic. Eyes are anicteric. Neck is soft without jugular venous distention. Breathing is unlabored. Abdomen is soft. Lower extremity with 2+ femoral and 1+/2+ popliteal pulses
palpable bilaterally. Nonpalpable distally bilaterally. Feet are warm. Right first 2 toes with distal tip dry gangrene isolated early not completely dried up. Relatively small/superficial appearing lesions. Bilateral heel ulcerations. All
wounds as noted in wound care notes and pictures.
Noninvasive studies reviewed. Right-sided LEX 0.66, left side 0.64. Left-sided toe pressure 0. Right-sided TBI 0.37. Popliteal artery velocity elevation on the right side. Likely infrapopliteal disease as well. On the left side SFA stenosis
identified as well as popliteal stenosis.
Plan/ Bilateral peripheral arterial disease. Heel ulcers. Chronic limb threatening ischemia therefore. I extensively discussed with the patient and his these findings. Discussed recommendation for revascularization in the setting of wounds
given that these present limb threatening problems. Discussed difficulty managing in general heel ulcerations. My recommendation would be for angiography bilateral lower extremity, but initially proceeding with potential intervention of right
lower extremity given distal dry gangrene. Discussed procedure at length and expected outcomes to include: #1 successful endovascular revascularization, #2 need for staged surgical bypass/surgical intervention, #3 not reconstructable small vessel
obliterative disease. Discussed also likely staged right and then left lower extremity interventions if needed. We had an extensive discussion. Discussed technical aspects of procedure as well as risks including but not limited to bleeding,
arterial injury/worsened or acute limb ischemia, renal failure. They understand all and likely wish to proceed. They wish to discuss among some cells further his other issues/medical conditions. But for now we will likely wish to proceed. Will
plan angiogram tomorrow. Please hold anticoagulation for now. N.p.o. after midnight.
--- NOTE | 2024-01-24 12:55 | CM ---
Chart reviewed and patient is for possible procedure tomorrow, plan is for skilled placement at [facility] when stable, field nurse case manager will continue to follow with patient progress.
Plan; Skilled placement.
[2024-01-24] MEDS: THERAGRAN 1 TABLET PO (13:10)
--- NOTE | 2024-01-24 14:45 | PN.CDI ---
CDI
- -
CDI:
Physician Documentation Request
Admit Date: 01/21/24 18:33
Dear Doctor Herminio,
Patient admitted with CAUTI.
01/23 PN, 'Bilateral heel ulcers...-wound care.'
01/21 [facility] note, 'Patient admitted with: bilateral deep dermal stage 2 vs stage 3 heel pressure injuries.'
Physician documentation of the type and location of wounds is required for compliant documentation. Based on the above clinical findings and your assessment, please provide the following in your progress note:
2. Type (etiology) of ulcer/wound:
- Diabetic ulcer
- Arterial (ischemic) ulcer
- Traumatic wound
- Venous stasis ulcer
- Pressure (decubitus) ulcer
- Non-healing surgical wound
- Other
- Unable to determine
3. For a non-pressure ulcer, please indicate the depth/severity:
- Limited to the breakdown of skin
- With fat layer exposed
- With necrosis of muscle
- With necrosis of bone
- Other
- Unable to determine
4. If a pressure ulcer, please also include the stage* of the ulcer:
- Stage 1 - Skin intact, non-blanchable redness
- Stage 2 - Partial thickness loss of dermis, includes intact or open blister
- Stage 3 - Full thickness tissue not including bone, tendon or muscle
- Stage 4 - Full thickness tissue loss, including exposed bone, tendon or muscle
- Unstageable - Full thickness loss in which the base of the ulcer is covered by slough (yellow, ron, vasquez, green or brown) and/or eschar (ron, brown or black) in the wound bed.
- Unable to determine
Use of terms such as suspected, likely, concern for, or probable (associated with a specific diagnosis that is being evaluated, monitored, or treated as if it exists) are acceptable and can be coded in the inpatient setting, when documented at the
time of discharge.
Thank you,
Barbara KHOURY,RN,CCDS
CDI Specialist
Available via tiger text
Please use your independent medical judgment in providing your response.
*Source: National Pressure Ulcer Advisory Panel (NPUAP)
--- NOTE | 2024-01-24 15:31 | W.PN.ID1 ---
Date of Service
Date of Service: January 24, 2024
Today's Communication
- start ciprofloxacin 750 mg PO BID x 14 day 01/22-02/04
- QTc acceptable at 440, repeat EKG in the AM
- recommend brunson removal and replacement if not already done this admission
Assessment / Plan
CAUTI, Complicated UTI
Suspected Metastatic Prostate Cancer
MDS
- urine culture with 100K Pseudomonas and 100K enterococcus
- start ciprofloxacin 750 mg PO BID x 14 day 01/22-02/04
- QTc acceptable at 440, repeat EKG in the AM
- recommend brunson removal and replacement if not already done this admission
Stage 2 Bilateral Heel Wounds
- agree with offloading which patient is compliant with
- defer to wound care
- vascular surgery plans angiography
Chief Complaint
-: UTI
Subjective / Review of Systems
afebrile
mild RUQ tenderness is stable
brunson
Vital Signs / Physical Exam
Vital Signs
Vital Signs
Temp Pulse Resp BP Pulse Ox
97.6 F 77 18 120/70 99
01/24/24 14:35 01/24/24 14:35 01/24/24 14:35 01/24/24 14:35 01/24/24 14:35
Physical Exam
Constitutional: No Acute Distress
Cardiovascular: Regular Rate and S1/S2; Negative Murmur or Rub
Pulmonary: Clear and Symmetric; Negative Wheezes or Rales
Gastrointestinal: Soft, Non Tender, Non Distended and Normal Bowel Sounds
Genito-Urinary: Negative Suprapubic Tenderness or CVA Tenderness
Skin: Warm and Dry; Negative Rash or Jaundice
Objective Data
Lab Data
Lab Results
01/24/24 10:06
01/24/24 10:06
Estimated Creat Clear 89 ml/min 01/24/24 10:06
Total Bilirubin Cancelled 01/21/24 13:54
AST Cancelled 01/21/24 13:54
ALT Cancelled 01/21/24 13:54
Alkaline Phosphatase Cancelled 01/21/24 13:54
Most recent labs reviewed.
Urine Culture Final 01/24/24-1321
CC: Greater than 100,000 CFU/ML Pseudomonas aeruginosa
CC: Greater than 100,000 CFU/ML Enterococcus faecalis
Organism 1 Pseudomonas aeruginosa
Organism 2 Enterococcus faecalis

* This is a amended result due to physician
request for additional antibiotic *

A prior result that was reported as final has been changed.
P.AERU ENTFCL
M.I.C. RX M.I.C. RX
--------- --- --------- ---
Ampicillin <=2 S
Aztreonam 8 S
Cefepime <=2 S
Ceftazidime 4 S
Ciprofloxacin <=0.25 S <=1 S
Gentamicin Synergy Screen <=500 S
Levofloxacin 2 S
Meropenem <=1 S
Nitrofurantoin-Urine Only <=32 S
Piperacillin/Tazobactam <=8 S
Tetracycline >8 R
Tobramycin <=2 S
Vancomycin 2 S
Micro Results:
01/21/24 13:54 Urine Culture - Final
Urine Pseudomonas aeruginosa
Enterococcus faecalis
[2024-01-24 16:15] LABS: Number Of Markers 26 markers; Source Blood
[2024-01-24] MEDS: DEPAKOTE (12 HR RELEASE) 1000 MG PO (17:23)
[2024-01-24] MEDS: CIPRO 750 MG PO ×2 (17:23→20:23)
[2024-01-24] MEDS: LIPITOR 10 MG PO (20:21)
[2024-01-24 21:33] LABS: Alpha 2 Globulin 1.31 g/dL (0.48-1.05); SPEP IFE Reflex Not Done; Total Protein-Electrophoresis 6.8 g/dL (6.3-8.2)
[2024-01-25] VITALS (7 sets, daily range): BP systolic 138–149; BP diastolic 61–74; PULSE 69
[2024-01-25] MEDS: PROCARDIA XL (EXTENDED RELEASE) 60 MG PO (06:20)
[2024-01-25] MEDS: SYNTHROID 37.5 MCG PO (06:20)
--- NOTE | 2024-01-25 07:46 | W.PN.ID1 ---
Addendum entered and electronically signed by Radha Garcia MD 01/25/24 14:11:
I saw and evaluated the patient. I reviewed the resident�s note and agree with findings and plan as documented in the resident�s note as written below. I independently saw the patient, did my own exam, reviewed the case verbally with the resident.
Original Note:
Documented by User: Megan Merritt MD, Resident 01/25/24 12:25
Date of Service
Date of Service: January 25, 2024
Today's Communication
Continue oral Ciprofloxacin 750mg PO BID through 02/04
Assessment / Plan
CAUTI, Complicated UTI
Suspected Metastatic Prostate Cancer
MDS
- urine culture with 100K Pseudomonas and 100K enterococcus
- start ciprofloxacin 750 mg PO BID x 14 day 01/22-02/04
- QTc acceptable at 453
Stage 2 Bilateral Heel Wounds
- agree with offloading which patient is compliant with
- defer to wound care
- vascular surgery plans angiography today and potential intervention.
Chief Complaint
-: UTI
Subjective / Review of Systems
Review of Systems: No Fever and No Abdominal Pain
Vital Signs / Physical Exam
Vital Signs
Vital Signs
Temp Pulse Resp BP Pulse Ox
97.5 F 68 18 147/68 95
01/25/24 03:34 01/25/24 06:20 01/25/24 03:34 01/25/24 06:20 01/25/24 03:34
Physical Exam
Constitutional: No Acute Distress and Comfortable
Cardiovascular: Regular Rate and S1/S2; Negative Murmur or Rub
Pulmonary: Clear and Non Labored; Negative Wheezes, Rales or Rhonchi
Gastrointestinal: Soft, Non Tender, Non Distended and Normal Bowel Sounds
Genito-Urinary: Palm and Clear Urine; Negative Suprapubic Tenderness, CVA Tenderness or Hematuria
Extremities: Negative Edema
Wound: Other (bilateral heel wounds, with dressings dry and intact. )
Neurological: Awake and Alert
Psychological: Calm
Objective Data
Lab Data
Estimated Creat Clear 89 ml/min 01/24/24 10:06
Total Bilirubin Cancelled 01/21/24 13:54
AST Cancelled 01/21/24 13:54
ALT Cancelled 01/21/24 13:54
Alkaline Phosphatase Cancelled 01/21/24 13:54
Most recent labs reviewed.
Micro Results:
01/21/24 13:54 Urine Culture - Final
Urine Pseudomonas aeruginosa
Enterococcus faecalis

Documented by User: Radha Garcia MD 01/25/24 14:10
Assessment / Plan
CAUTI, Complicated UTI
Suspected Metastatic Prostate Cancer
MDS
- urine culture with 100K Pseudomonas and 100K enterococcus
- ciprofloxacin 750 mg PO BID x 14 day 01/22-02/04
- QTc acceptable at 453
Stage 2 Bilateral Heel Wounds
- agree with offloading which patient is compliant with
- defer to wound care
- vascular surgery plans angiography today and potential intervention.
--- NOTE | 2024-01-25 08:25 | W.PN.HOSP.TC ---
Today's Communication/Plan
-
see bold
Assessment / Plan
Assessment / Plan
Gen: remains NAD, Awake and alert, appears chronically ill
Eyes: remains EOMI, PERRLA, no scleral icterus.
Neck: supple.
CV: RRR, +S1/S2, no m/r/g.
Resp: CTAB, no rales, wheezes, or rhonchi.
Abd: +BS, soft, NT, ND
Skin: No rashes.
Neuro: CN 2-12 intact
Psych: remains Normal mood and affect
01/21/24 13:54 Urine Urine Culture - Preliminary
Pseudomonas aeruginosa
Enterococcus species
CT A/P: New moderate abdominal and pelvic lymphadenopathy as described above and consistent with malignancy until proven otherwise. Findings suggesting mild blastic osseous metastatic disease. New. Mild left hydronephrosis probably due to
displacement of the ureter by the upper abdominal lymphadenopathy. New. Tiny left pleural effusion. New. Minimal bibasilar atelectasis. Improved on the right. New on the left. Gallstones. Stable. Bilateral simple renal cysts. Stable. Moderate fecal
material throughout the colon. Moderate diverticulosis. Stable. Severe diffuse bladder wall thickening partially due to limited distention. Cystitis and bladder outlet obstruction not excluded. New. Brunson catheter present in the bladder. New.
CT head: No acute intracranial abnormality noted. Mild atrophy. Stable. 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 Clinical correlation recommended. Progressed. Moderate periventricular small vessel ischemic disease. Stable. Old
bilateral lacunar infarcts. Stable. Mild nonacute right ethmoid sinusitis. Stable.
CXR: Tiny left pleural effusion. New.
B/L LE arterial U/S with ABIs:
RIGHT LOWER EXTREMITY: LEX moderately reduced at 0.66 (prior 1.03). TBI severely reduced at 0.37 (prior 0.69). Arterial duplex examination reveals multiphasic waveforms from the common femoral artery through the popliteal artery. There is a focal
velocity elevation in the popliteal artery at 288 cm/s however the ratio remains less than 2 suggesting a nonsignificant stenosis. Presence of tibial artery disease is suspected.
LEFT LOWER EXTREMITY: LEX moderately reduced at 0.64 (prior 1.02). Toe pressure 0. Arterial duplex examination reveals multiphasic waveforms from the common femoral artery through the distal superficial femoral artery. There is a transition to
monophasic waveforms in the popliteal artery. There is a focal velocity elevation in the mid superficial femoral artery at 268 cm/s (ratio 2.9) suggesting a greater than 50% stenosis at this location. There is an additional velocity elevation in the
popliteal artery at 452 cm/s (ratio 8.3) suggesting a greater than 75% stenosis at this location.
Acute metabolic encephalopathy likely due to acute CAUTI:
-UCx with now with Pseudomonas and Enterococcus, cont to follow for susceptibilities
-was on Zosyn, now on Cipro as per ID
-Leukocytosis lopez resolved
-brunson exchanged 01/23/24
Bilateral heel ulcers and R dorsal toe ulcer:
-bilateral deep dermal stage 2 vs stage 3 heel pressure injuries
-B/L LE arterial U/S with ABIs as above
-vascular following, for arteriogram today
-wound care
Abdominal pelvic lymphadenopathy and mild blastic osseous metastatic disease:
-h/o enlarged prostate on finasteride, has had a Brunson for the past 18 months
-with elevated PSA concern for metastatic prostate cancer
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
-Casodex started, for Eligard in 2 weeks
Other problems:
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
Paroxysmal atrial fibrillation: h/o ablation 2010, cont sotalol/Eliquis
Essential Hypertension: Cont Nifedipine
Hypothyroidism: cont Synthroid
Other problems:
Anemia of chronic disease and Fe def: cont PO Fe
Bipolar d/o: cont divalproex
HLD: Cont statin
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
h/o IVC filter
HERNANDO, noncompliant with CPAP at home
DNR/Eliquis (to resume after arteriogram)
Total time spent on today's encounter was 51 minutes which included time spent in counseling the patient/family regarding diagnosis and treatment plan as listed above, goals of care, and symptom management. Case was discussed with nursing staff,
specialists, and care coordinators/case management. All labs and imaging personally reviewed by me. Remainder the time spent in detailed review of previous records, lab data, imaging, and other medical provider documentation.
Anticipated Discharge: 24 - 48 hours
Subjective/Interval History
-
Date of Service: January 25, 2024
Objective Data
-
Labs:
Laboratory Results
01/25/24
08:13
WBC Pending
Hgb Pending
Hct Pending
Plt Count Pending
PT Pending
INR Pending
APTT Pending
Sodium Pending
Potassium Pending
Chloride Pending
Carbon Dioxide Pending
BUN Pending
Creatinine Pending
Glucose Pending
Calcium Pending
Vital Signs:
Vital Signs
Temp Pulse Resp BP Pulse Ox
98.4 F 74 18 149/71 94
01/25/24 07:35 01/25/24 07:35 01/25/24 07:35 01/25/24 07:35 01/25/24 07:35
I&O
01/24/24 01/25/24 01/26/24
06:59 06:59 06:59
Intake Total 840 / 840 900 / 900
Output Total 900 / 900 750 / 750
Balance -60 / -60 150 / 150
[2024-01-25 08:32] LABS: Hematocrit 26.8 % (39.0-52.0); Hemoglobin 8.5 g/dL (13.0-18.0); Mean Corp Hgb Conc. 31.7 g/dL (33.0-37.0); Mean Corpuscular Hgb 30.5 pg (27.0-31.0); Mean Corpuscular Volume 96.1 fL (80.0-94.0); Platelet Count 247 10^3/uL (130-400); Red Blood Cell Count 2.79 10^6/uL (4.70-6.10); Red Cell Dist. Width 14.9 % (11.5-14.5); White Blood Cell Count 6.9 10^3/uL (4.8-10.8)
[2024-01-25 08:39] LABS: INR 1.34; PT 16.6 Sec (11.4-14.6)
[2024-01-25 08:40] LABS: APTT 50.3 Sec (23.4-35.0)
[2024-01-25] MEDS: CIPRO 750 MG PO ×2 (08:40→19:53)
[2024-01-25] MEDS: COLACE 100 MG PO ×2 (08:41→19:55)
[2024-01-25] MEDS: BETAPACE 80 MG PO ×2 (08:41→19:54)
[2024-01-25] MEDS: SENOKOT 17.2 MG PO ×2 (08:42→19:55)
[2024-01-25] MEDS: CASODEX 50 MG PO (08:42)
[2024-01-25] MEDS: FEOSOL 325 MG PO ×2 (08:42→21:50)
[2024-01-25] MEDS: PROSCAR 5 MG PO (08:42)
[2024-01-25] MEDS: MIRALAX 17 GRAMS PO (08:43)
[2024-01-25 09:02] LABS: Blood Urea Nitrogen 16 mg/dl (9-20); Calcium 8.9 mg/dl (8.4-10.2); Carbon Dioxide 26 mmol/L (22-30); Chloride 102 mmol/L (98-107); Estimated Creatinine Clearance 104 ml/min; Glucose 91 mg/dl (70-99); Potassium 4.3 mmol/L (3.5-5.1); Sodium 136 mmol/L (135-145); eGFR > 60.00
[2024-01-25] MEDS: THERAGRAN 1 TABLET PO (12:01)
--- NOTE | 2024-01-25 15:35 | CM ---
Chart reviewed and correctional counselor/case manager spoke with patient's spouse and she is aware that patient has been accepted at [facility] when stable;
Plan; [facility] skilled when stable.
[2024-01-25] MEDS: DEPAKOTE (12 HR RELEASE) 1000 MG PO (16:17)
--- NOTE | 2024-01-25 16:56 | W.PN.UPDATE ---
Update Note
Progress Note Update
Patient seen at bedside, at the order of attending Dr. Prashanth Barron explained to patient that urgent cases arose today prompting cancellation of his nonurgent arteriogram. Explained the patient that we recommend rescheduling for Monday and he is
agreeable to this plan. Additionally relayed this plan to attending Dr. Durham. Patient will be n.p.o. Monday a.m. 01/28.
[2024-01-25] MEDS: TYLENOL 1000 MG PO (19:54)
[2024-01-25] MEDS: ELIQUIS 5 MG PO (19:55)
[2024-01-25] MEDS: LIPITOR 10 MG PO (19:55)
[2024-01-26] VITALS (8 sets, daily range): BP systolic 116–171; BP diastolic 62–80; PULSE 78
[2024-01-26] MEDS: TYLENOL 1000 MG PO ×2 (02:10→21:43)
--- NOTE | 2024-01-26 03:30 | PTCARENOTE ---
Pt provided PRN Tylenol 1000mg q6h at 0200 for 7/10 pain to right hip. At 0330 pt reports that his pain has increased and that the Tylenol has not helped his pain. House FABRICATION ENGINEER Natty Rodriguez notified, order placed for PRN Tramadol 25mg and provided to
pt.
[2024-01-26] MEDS: ULTRAM 25 MG PO ×2 (03:37→23:19)
[2024-01-26] MEDS: SYNTHROID 37.5 MCG PO (05:14)
[2024-01-26] MEDS: PROCARDIA XL (EXTENDED RELEASE) 60 MG PO (06:15)
--- NOTE | 2024-01-26 07:58 | W.PN.ID1 ---
Addendum entered and electronically signed by Radha Garcia MD 01/26/24 11:20:
ID service will no longer actively follow this patient please recall for further questions
Addendum entered and electronically signed by Radha Garcia MD 01/26/24 11:12:
I saw and evaluated the patient. I reviewed the resident�s note and agree with findings and plan as documented in the resident�s note as written. I have examined the patient indepenently and discussed with Dr Merritt. I deferred dressing take down
today. Note plans for angiogram on monday.
AW
Original Note:
Date of Service
Date of Service: January 26, 2024
Today's Communication
Continue oral Ciprofloxacin
Assessment / Plan
CAUTI, Complicated UTI
Suspected Metastatic Prostate Cancer
MDS
- urine culture with 100K Pseudomonas and 100K enterococcus
- ciprofloxacin 750 mg PO BID x 14 day 01/22-02/04
- QTc acceptable at 453
Stage 2 Bilateral Heel Wounds
- agree with offloading which patient is compliant with
- defer to wound care
- vascular surgery plans angiography and potential intervention. Rescheduled for Monday
Chief Complaint
-: UTI
Subjective / Review of Systems
Review of Systems: No Fever, No Chills, No Chest Pain and No Abdominal Pain
Vital Signs / Physical Exam
Vital Signs
Vital Signs
Temp Pulse Resp BP Pulse Ox
98.2 F 69 16 146/76 95
01/26/24 03:00 01/26/24 06:15 01/26/24 03:00 01/26/24 06:15 01/26/24 03:00
Physical Exam
Cardiovascular: Regular Rate and S1/S2; Negative Murmur or Peripheral Edema
Pulmonary: Clear and Non Labored; Negative Wheezes, Rales or Rhonchi
Gastrointestinal: Soft, Non Tender, Non Distended and No Guarding
Genito-Urinary: Palm and Clear Urine; Negative Suprapubic Tenderness, CVA Tenderness or Hematuria
Extremities: Other (Bilateral LE offloading boot in place)
Wound: Other (Bilateral heel wound dressings in place)
Neurological: Awake, Alert and Other (answers questions appropriately)
Psychological: Calm
Objective Data
Lab Data
PT 16.6 Sec (11.4-14.6) H 01/25/24 08:13
INR 1.34 01/25/24 08:13
APTT 50.3 Sec (23.4-35.0) H 01/25/24 08:13
Estimated Creat Clear 104 ml/min 01/25/24 08:13
Total Bilirubin Cancelled 01/21/24 13:54
AST Cancelled 01/21/24 13:54
ALT Cancelled 01/21/24 13:54
Alkaline Phosphatase Cancelled 01/21/24 13:54
Most recent labs reviewed.
Micro Results:
01/21/24 13:54 Urine Culture - Final
Urine Pseudomonas aeruginosa
Enterococcus faecalis
--- NOTE | 2024-01-26 08:58 | W.PN.ONC2 ---
Today's Communication / Plan
-
I will arrange OP follow up with Dr. Rzio upon discharge
Impression
Impression
Suspected metastatic prostate cancer with PSA = 114 and both sharmila and blastic bony metastasis
History of mild relatively stable clinical MDS
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
Plan
Plan
continue Casodex.
Initiate Lupron in ap
Check PSMA PET as outpatient for accurate staging and discuss management options based on GOC.
Subjective/Objective
Chief Complaint
b/l LE discomfort/pain
denies pelvis or suprapubic pain
Subjective
no new complaints
Vital Signs:
Vital Signs
Temp Pulse Resp BP Pulse Ox
97.6 F 68 17 150/80 97
01/26/24 07:40 01/26/24 07:40 01/26/24 07:40 01/26/24 07:40 01/26/24 07:40
Lab Results:
Laboratory Data
WBC 6.9 10^3/uL (4.8-10.8) 01/25/24 08:13
Hgb 8.5 g/dL (13.0-18.0) L 01/25/24 08:13
Plt Count 247 10^3/uL (130-400) 01/25/24 08:13
PT 16.6 Sec (11.4-14.6) H 01/25/24 08:13
INR 1.34 01/25/24 08:13
APTT 50.3 Sec (23.4-35.0) H 01/25/24 08:13
eGFR > 60.00 01/25/24 08:13
Physical Exam
General: No Apparent Distress, Comfortable and Appears Chronically Ill
HEENT: Negative Jaundice
Cardiology: Normal Sinus Rhythm
Pulmonary: Clear
Musculoskeletal: No Edema
Neurology: Non Focal
Review of Systems
Review of Systems
Review of systems notable for subjective otherwise negative
[2024-01-26] MEDS: FEOSOL 325 MG PO ×2 (10:01→21:41)
[2024-01-26] MEDS: SENOKOT 17.2 MG PO (10:01)
[2024-01-26] MEDS: ELIQUIS 5 MG PO ×2 (10:01→19:54)
[2024-01-26] MEDS: BETAPACE 80 MG PO ×2 (10:02→19:54)
[2024-01-26 10:03] LABS: Hematocrit 29.2 % (39.0-52.0); Hemoglobin 9.5 g/dL (13.0-18.0); Mean Corp Hgb Conc. 32.5 g/dL (33.0-37.0); Mean Corpuscular Hgb 31.5 pg (27.0-31.0); Mean Corpuscular Volume 96.7 fL (80.0-94.0); Mean Platelet Volume 10.1 fL (7.4-10.4); Platelet Count 282 10^3/uL (130-400); Red Blood Cell Count 3.02 10^6/uL (4.70-6.10); Red Cell Dist. Width 14.9 % (11.5-14.5); White Blood Cell Count 7.2 10^3/uL (4.8-10.8)
[2024-01-26] MEDS: COLACE 100 MG PO ×2 (10:03→19:54)
[2024-01-26] MEDS: CASODEX 50 MG PO (10:03)
[2024-01-26] MEDS: CIPRO 750 MG PO ×2 (10:03→19:54)
[2024-01-26] MEDS: PROSCAR 5 MG PO (10:03)
[2024-01-26] MEDS: MIRALAX PO (10:04)
--- NOTE | 2024-01-26 10:54 | W.PN.HOSP.TC ---
Today's Communication/Plan
-
for arteriogram 01/29/24
Assessment / Plan
Assessment / Plan
Gen: continues to remain NAD, Awake and alert, appears chronically ill
Eyes: continues to remain EOMI, PERRLA, no scleral icterus.
Neck: supple.
CV: RRR, +S1/S2, no m/r/g.
Resp: CTAB, no rales, wheezes, or rhonchi.
Abd: +BS, soft, NT, ND
Skin: No rashes.
Neuro: CN 2-12 intact
Psych: continues to remain Normal mood and affect
01/21/24 13:54 Urine Urine Culture - Final
Pseudomonas aeruginosa
Enterococcus faecalis
CT A/P: New moderate abdominal and pelvic lymphadenopathy as described above and consistent with malignancy until proven otherwise. Findings suggesting mild blastic osseous metastatic disease. New. Mild left hydronephrosis probably due to
displacement of the ureter by the upper abdominal lymphadenopathy. New. Tiny left pleural effusion. New. Minimal bibasilar atelectasis. Improved on the right. New on the left. Gallstones. Stable. Bilateral simple renal cysts. Stable. Moderate fecal
material throughout the colon. Moderate diverticulosis. Stable. Severe diffuse bladder wall thickening partially due to limited distention. Cystitis and bladder outlet obstruction not excluded. New. Brunson catheter present in the bladder. New.
CT head: No acute intracranial abnormality noted. Mild atrophy. Stable. 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 Clinical correlation recommended. Progressed. Moderate periventricular small vessel ischemic disease. Stable. Old
bilateral lacunar infarcts. Stable. Mild nonacute right ethmoid sinusitis. Stable.
CXR: Tiny left pleural effusion. New.
B/L LE arterial U/S with ABIs:
RIGHT LOWER EXTREMITY: LEX moderately reduced at 0.66 (prior 1.03). TBI severely reduced at 0.37 (prior 0.69). Arterial duplex examination reveals multiphasic waveforms from the common femoral artery through the popliteal artery. There is a focal
velocity elevation in the popliteal artery at 288 cm/s however the ratio remains less than 2 suggesting a nonsignificant stenosis. Presence of tibial artery disease is suspected.
LEFT LOWER EXTREMITY: LEX moderately reduced at 0.64 (prior 1.02). Toe pressure 0. Arterial duplex examination reveals multiphasic waveforms from the common femoral artery through the distal superficial femoral artery. There is a transition to
monophasic waveforms in the popliteal artery. There is a focal velocity elevation in the mid superficial femoral artery at 268 cm/s (ratio 2.9) suggesting a greater than 50% stenosis at this location. There is an additional velocity elevation in the
popliteal artery at 452 cm/s (ratio 8.3) suggesting a greater than 75% stenosis at this location.
Acute metabolic encephalopathy likely due to acute CAUTI:
-UCx with now with Pseudomonas and Enterococcus, cont to follow for susceptibilities
-was on Zosyn, now on Cipro as per ID
-Leukocytosis lopez resolved
-brunson exchanged 01/23/24
Bilateral heel ulcers and R dorsal toe ulcer:
-bilateral deep dermal stage 2 vs stage 3 heel pressure injuries
-B/L LE arterial U/S with ABIs as above
-vascular following, for arteriogram 01/29/24
-wound care
Abdominal pelvic lymphadenopathy and mild blastic osseous metastatic disease:
-h/o enlarged prostate on finasteride, has had a Brunson for the past 18 months
-with elevated PSA concern for metastatic prostate cancer
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
-Casodex started, for Eligard in 2 weeks
Other problems:
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
Paroxysmal atrial fibrillation: h/o ablation 2010, cont sotalol/Eliquis
Essential Hypertension: Cont Nifedipine
Hypothyroidism: cont Synthroid
Other problems:
Anemia of chronic disease and Fe def: cont PO Fe
Bipolar d/o: cont divalproex
HLD: Cont statin
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
h/o IVC filter
HERNANDO, noncompliant with CPAP at home
DNR/Eliquis
Total time spent on today's encounter was 51 minutes which included time spent in counseling the patient/family regarding diagnosis and treatment plan as listed above, goals of care, and symptom management. Case was discussed with nursing staff,
specialists, and care coordinators/case management. All labs and imaging personally reviewed by me. Remainder the time spent in detailed review of previous records, lab data, imaging, and other medical provider documentation.
Anticipated Discharge: > 48 hours
Subjective/Interval History
-
Date of Service: January 26, 2024
No new complaints.
Objective Data
-
Labs:
Laboratory Results
01/26/24
08:16
WBC 7.2
Hgb 9.5 L
Hct 29.2 L
Plt Count 282
Sodium Pending
Potassium Pending
Chloride Pending
Carbon Dioxide Pending
BUN Pending
Creatinine Pending
Glucose Pending
Calcium Pending
Vital Signs:
Vital Signs
Temp Pulse Resp BP Pulse Ox
97.6 F 68 17 160/80 97
01/26/24 07:40 01/26/24 10:02 01/26/24 07:40 01/26/24 10:02 01/26/24 07:40
I&O
01/25/24 01/26/24 01/27/24
06:59 06:59 06:59
Intake Total 900 / 900 240 / 240
Output Total 750 / 750 1325 / 1325
Balance 150 / 150 -1085 / -1085
--- NOTE | 2024-01-26 13:07 | CM ---
branch operations manager continues to follow with patient progress and spoke with patient and spouse this am, patient for procedure on Monday, plan is for skilled placement at [email or web address] when stable.
Plan; Skilled placement when stable, referral has been sent to [facility] for skilled placement. No Auth required.
[2024-01-26] MEDS: THERAGRAN 1 TABLET PO (13:17)
[2024-01-26 13:42] LABS: Blood Urea Nitrogen 11 mg/dl (9-20); Calcium 9.1 mg/dl (8.4-10.2); Carbon Dioxide 26 mmol/L (22-30); Chloride 102 mmol/L (98-107); Estimated Creatinine Clearance 104 ml/min; Glucose 113 mg/dl (70-99); Potassium 4.1 mmol/L (3.5-5.1); Sodium 134 mmol/L (135-145); eGFR > 60.00
[2024-01-26] MEDS: DEPAKOTE (12 HR RELEASE) 1000 MG PO (17:10)
[2024-01-26] MEDS: LIPITOR 10 MG PO (19:54)
[2024-01-26] MEDS: SENOKOT PO ×2 (19:54→20:11)
[2024-01-27 03:17] VITALS: BP 153/73
[2024-01-27 06:11] VITALS: BP 136/63
[2024-01-27] MEDS: SYNTHROID 37.5 MCG PO (06:11)
[2024-01-27] MEDS: PROCARDIA XL (EXTENDED RELEASE) 60 MG PO (06:11)
[2024-01-27 07:00] VITALS: BP 137/63
[2024-01-27 07:10] LABS: Hematocrit 28.6 % (39.0-52.0); Hemoglobin 9.3 g/dL (13.0-18.0); Mean Corp Hgb Conc. 32.5 g/dL (33.0-37.0); Mean Corpuscular Hgb 31.7 pg (27.0-31.0); Mean Corpuscular Volume 97.6 fL (80.0-94.0); Mean Platelet Volume 9.9 fL (7.4-10.4); Platelet Count 306 10^3/uL (130-400); Red Blood Cell Count 2.93 10^6/uL (4.70-6.10); Red Cell Dist. Width 14.8 % (11.5-14.5); White Blood Cell Count 6.6 10^3/uL (4.8-10.8)
[2024-01-27 07:14] LABS: Blood Urea Nitrogen 12 mg/dl (9-20); Calcium 9.1 mg/dl (8.4-10.2); Carbon Dioxide 24 mmol/L (22-30); Chloride 101 mmol/L (98-107); Estimated Creatinine Clearance 89 ml/min; Glucose 91 mg/dl (70-99); Potassium 4.5 mmol/L (3.5-5.1); Sodium 135 mmol/L (135-145); eGFR > 60.00
--- NOTE | 2024-01-27 07:57 | W.PN.UPDATE ---
Update Note
Progress Note Update
Seen and evaluated. Discussed with patient again cancellation this past for his angiogram due to emergent case in OR. Patient understanding. Plan angiography on Monday. Patient amenable. N.p.o. after midnight Monday night into Monday.
[2024-01-27] MEDS: SENOKOT 17.2 MG PO ×2 (08:02→19:22)
[2024-01-27] MEDS: CASODEX 50 MG PO (08:02)
[2024-01-27] MEDS: CIPRO 750 MG PO ×2 (08:02→19:20)
[2024-01-27] MEDS: BETAPACE 80 MG PO ×2 (08:03→19:21)
[2024-01-27] MEDS: PROSCAR 5 MG PO (08:03)
[2024-01-27] MEDS: COLACE 100 MG PO ×2 (08:04→19:19)
[2024-01-27] MEDS: MIRALAX PO (08:04)
[2024-01-27] MEDS: FEOSOL 325 MG PO ×2 (08:04→21:06)
[2024-01-27] MEDS: ELIQUIS 5 MG PO ×2 (08:04→19:21)
[2024-01-27] MEDS: ULTRAM 25 MG PO ×2 (08:15→21:52)
--- NOTE | 2024-01-27 10:08 | W.PN.HOSP.TC ---
Today's Communication/Plan
-
see bold
Assessment / Plan
Assessment / Plan
Gen: NAD, Awake and alert, appears chronically ill
Eyes: EOMI, PERRLA, no scleral icterus.
Neck: supple.
CV: remains RRR, +S1/S2, no m/r/g.
Resp: remains CTAB, no rales, wheezes, or rhonchi.
Abd: +BS, soft, NT, ND
Skin: No rashes.
Neuro: CN 2-12 intact
Psych: Normal mood and affect
01/21/24 13:54 Urine Urine Culture - Final
Pseudomonas aeruginosa
Enterococcus faecalis
CT A/P: New moderate abdominal and pelvic lymphadenopathy as described above and consistent with malignancy until proven otherwise. Findings suggesting mild blastic osseous metastatic disease. New. Mild left hydronephrosis probably due to
displacement of the ureter by the upper abdominal lymphadenopathy. New. Tiny left pleural effusion. New. Minimal bibasilar atelectasis. Improved on the right. New on the left. Gallstones. Stable. Bilateral simple renal cysts. Stable. Moderate fecal
material throughout the colon. Moderate diverticulosis. Stable. Severe diffuse bladder wall thickening partially due to limited distention. Cystitis and bladder outlet obstruction not excluded. New. Brunson catheter present in the bladder. New.
CT head: No acute intracranial abnormality noted. Mild atrophy. Stable. 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 Clinical correlation recommended. Progressed. Moderate periventricular small vessel ischemic disease. Stable. Old
bilateral lacunar infarcts. Stable. Mild nonacute right ethmoid sinusitis. Stable.
CXR: Tiny left pleural effusion. New.
B/L LE arterial U/S with ABIs:
RIGHT LOWER EXTREMITY: LEX moderately reduced at 0.66 (prior 1.03). TBI severely reduced at 0.37 (prior 0.69). Arterial duplex examination reveals multiphasic waveforms from the common femoral artery through the popliteal artery. There is a focal
velocity elevation in the popliteal artery at 288 cm/s however the ratio remains less than 2 suggesting a nonsignificant stenosis. Presence of tibial artery disease is suspected.
LEFT LOWER EXTREMITY: LEX moderately reduced at 0.64 (prior 1.02). Toe pressure 0. Arterial duplex examination reveals multiphasic waveforms from the common femoral artery through the distal superficial femoral artery. There is a transition to
monophasic waveforms in the popliteal artery. There is a focal velocity elevation in the mid superficial femoral artery at 268 cm/s (ratio 2.9) suggesting a greater than 50% stenosis at this location. There is an additional velocity elevation in the
popliteal artery at 452 cm/s (ratio 8.3) suggesting a greater than 75% stenosis at this location.
Acute metabolic encephalopathy likely due to acute CAUTI:
-UCx with now with Pseudomonas and Enterococcus, cont to follow for susceptibilities
-was on Zosyn, now on Cipro through 02/05/24 as per ID
-Leukocytosis lopez resolved
-brunson exchanged 01/23/24
Bilateral heel ulcers and R dorsal toe ulcer:
-bilateral deep dermal stage 2 vs stage 3 heel pressure injuries
-B/L LE arterial U/S with ABIs as above
-vascular following, for arteriogram 01/29/24
-wound care
Abdominal pelvic lymphadenopathy and mild blastic osseous metastatic disease:
-h/o enlarged prostate on finasteride, has had a Brunson for the past 18 months
-with elevated PSA concern for metastatic prostate cancer
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
-Casodex started, for Eligard in 2 weeks
Other problems:
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
Paroxysmal atrial fibrillation: h/o ablation 2010, cont sotalol/Eliquis
Essential Hypertension: Cont Nifedipine
Hypothyroidism: cont Synthroid
Anemia of chronic disease and Fe def: cont PO Fe
Bipolar d/o: cont divalproex
HLD: Cont statin
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
h/o IVC filter
HERNANDO, noncompliant with CPAP at home
DNR/Eliquis
Anticipated Discharge: > 48 hours
Subjective/Interval History
-
Date of Service: January 27, 2024
No new complaints.
Objective Data
-
Labs:
Laboratory Results
01/27/24
05:59
WBC 6.6
Hgb 9.3 L
Hct 28.6 L
Plt Count 306
Sodium 135
Potassium 4.5
Chloride 101
Carbon Dioxide 24
BUN 12
Creatinine 0.7
Glucose 91
Calcium 9.1
Vital Signs:
Vital Signs
Temp Pulse Resp BP Pulse Ox
97.7 F 67 16 137/63 97
01/27/24 07:00 01/27/24 07:00 01/27/24 07:00 01/27/24 07:00 01/27/24 07:00
I&O
01/26/24 01/27/24 01/28/24
06:59 06:59 06:59
Intake Total 240 / 240 780 / 780
Output Total 1325 / 1325 2148 / 2148
Balance -1085 / -1085 -1368 / -1368
[2024-01-27] MEDS: TYLENOL 1000 MG PO ×2 (11:59→19:25)
[2024-01-27] MEDS: THERAGRAN 1 TABLET PO (11:59)
[2024-01-27 15:00] VITALS: BP 122/79
[2024-01-27 16:01] VITALS: BP 122/79
[2024-01-27] MEDS: DEPAKOTE (12 HR RELEASE) 1000 MG PO (17:30)
[2024-01-27] MEDS: LIPITOR 10 MG PO (19:22)
[2024-01-27 23:00] VITALS: BP 153/82
[2024-01-28] MEDS: SYNTHROID 37.5 MCG PO (05:54)
[2024-01-28] MEDS: PROCARDIA XL (EXTENDED RELEASE) 60 MG PO (05:54)
[2024-01-28 07:00] VITALS: BP 147/71
[2024-01-28] MEDS: CASODEX 50 MG PO (08:10)
[2024-01-28] MEDS: COLACE 100 MG PO ×2 (08:10→20:30)
[2024-01-28] MEDS: PROSCAR 5 MG PO (08:10)
[2024-01-28] MEDS: FEOSOL 325 MG PO ×2 (08:10→21:01)
[2024-01-28 08:13] LABS: Hematocrit 28.8 % (39.0-52.0); Hemoglobin 9.3 g/dL (13.0-18.0); Mean Corp Hgb Conc. 32.3 g/dL (33.0-37.0); Mean Corpuscular Hgb 30.4 pg (27.0-31.0); Mean Corpuscular Volume 94.1 fL (80.0-94.0); Mean Platelet Volume 9.5 fL (7.4-10.4); Platelet Count 324 10^3/uL (130-400); Red Blood Cell Count 3.06 10^6/uL (4.70-6.10); White Blood Cell Count 6.8 10^3/uL (4.8-10.8)
[2024-01-28] MEDS: MIRALAX 17 GRAMS PO (08:14)
[2024-01-28] MEDS: BETAPACE 80 MG PO ×2 (08:15→20:30)
[2024-01-28] MEDS: CIPRO 750 MG PO ×2 (08:15→20:29)
[2024-01-28] MEDS: SENOKOT 17.2 MG PO ×2 (08:15→20:30)
[2024-01-28 08:50] LABS: Blood Urea Nitrogen 13 mg/dl (9-20); Calcium 9.1 mg/dl (8.4-10.2); Carbon Dioxide 26 mmol/L (22-30); Chloride 104 mmol/L (98-107); Estimated Creatinine Clearance 104 ml/min; Glucose 91 mg/dl (70-99); Potassium 4.1 mmol/L (3.5-5.1); Sodium 136 mmol/L (135-145); eGFR > 60.00
[2024-01-28] MEDS: THERAGRAN 1 TABLET PO (12:16)
--- NOTE | 2024-01-28 14:07 | W.PN.HOSP.TC ---
Today's Communication/Plan
-
Arteriogram in am
Continue AB
Assessment / Plan
Assessment / Plan
CVS: S1-S2 normal
Chest: CTA B/L
Abdomen: Soft, NT , Bowel sounds present
01/21/24 13:54 Urine Urine Culture - Final
Pseudomonas aeruginosa
Enterococcus faecalis
CT A/P: New moderate abdominal and pelvic lymphadenopathy as described above and consistent with malignancy until proven otherwise. Findings suggesting mild blastic osseous metastatic disease. New. Mild left hydronephrosis probably due to
displacement of the ureter by the upper abdominal lymphadenopathy. New. Tiny left pleural effusion. New. Minimal bibasilar atelectasis. Improved on the right. New on the left. Gallstones. Stable. Bilateral simple renal cysts. Stable. Moderate fecal
material throughout the colon. Moderate diverticulosis. Stable. Severe diffuse bladder wall thickening partially due to limited distention. Cystitis and bladder outlet obstruction not excluded. New. Palm catheter present in the bladder. New.
CT head: No acute intracranial abnormality noted. Mild atrophy. Stable. 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 Clinical correlation recommended. Progressed. Moderate periventricular small vessel ischemic disease. Stable. Old
bilateral lacunar infarcts. Stable. Mild nonacute right ethmoid sinusitis. Stable.
CXR: Tiny left pleural effusion. New.
B/L LE arterial U/S with ABIs:
RIGHT LOWER EXTREMITY: LEX moderately reduced at 0.66 (prior 1.03). TBI severely reduced at 0.37 (prior 0.69). Arterial duplex examination reveals multiphasic waveforms from the common femoral artery through the popliteal artery. There is a focal
velocity elevation in the popliteal artery at 288 cm/s however the ratio remains less than 2 suggesting a nonsignificant stenosis. Presence of tibial artery disease is suspected.
LEFT LOWER EXTREMITY: LEX moderately reduced at 0.64 (prior 1.02). Toe pressure 0. Arterial duplex examination reveals multiphasic waveforms from the common femoral artery through the distal superficial femoral artery. There is a transition to
monophasic waveforms in the popliteal artery. There is a focal velocity elevation in the mid superficial femoral artery at 268 cm/s (ratio 2.9) suggesting a greater than 50% stenosis at this location. There is an additional velocity elevation in the
popliteal artery at 452 cm/s (ratio 8.3) suggesting a greater than 75% stenosis at this location.
Acute metabolic encephalopathy likely due to acute CAUTI:
-UCx with now with Pseudomonas and Enterococcus, cont to follow for susceptibilities
-was on Zosyn, now on Cipro through 02/05/24 as per ID
-Leukocytosis lopez resolved
-Palm exchanged 01/23/24
Bilateral heel ulcers and R dorsal toe ulcer:
-bilateral deep dermal stage 2 vs stage 3 heel pressure injuries
-B/L LE arterial U/S with ABIs as above
-vascular following, for arteriogram 01/29/24
-wound care
Abdominal pelvic lymphadenopathy and mild blastic osseous metastatic disease:
-h/o enlarged prostate on finasteride, has had a Palm for the past 18 months
-with elevated PSA concern for metastatic prostate cancer
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
-Casodex started, for Eligard in 2 weeks
Other problems:
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
Paroxysmal atrial fibrillation: h/o ablation 2010, cont sotalol/Eliquis
Essential Hypertension: Cont Nifedipine
Hypothyroidism: cont Synthroid
Anemia of chronic disease and Fe def: cont PO Fe
Bipolar d/o: cont divalproex
HLD: Cont statin
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
h/o IVC filter
HERNANDO, noncompliant with CPAP at home
DNR
DVT Prophylaxis-Eliquis
Anticipated Discharge: 24 - 48 hours
Subjective/Interval History
-
Date of Service: January 28, 2024
Objective Data
-
Labs:
Laboratory Results
01/28/24
07:53
WBC 6.8
Hgb 9.3 L
Hct 28.8 L
Plt Count 324
Sodium 136
Potassium 4.1
Chloride 104
Carbon Dioxide 26
BUN 13
Creatinine 0.6 L
Glucose 91
Calcium 9.1
Vital Signs:
Vital Signs
Temp Pulse Resp BP Pulse Ox
97.7 F 72 20 147/71 99
01/28/24 07:00 01/28/24 07:00 01/28/24 07:00 01/28/24 07:00 01/28/24 08:15
I&O
01/27/24 01/28/24 01/29/24
06:59 06:59 06:59
Intake Total 780 / 780 840 / 840
Output Total 2148 / 2148 875 / 875
Balance -1368 / -1368 -35 / -35
[2024-01-28 15:26] VITALS: BP 135/76
[2024-01-28] MEDS: DEPAKOTE (12 HR RELEASE) 1000 MG PO (17:18)
[2024-01-28] MEDS: LIPITOR 10 MG PO (20:29)
[2024-01-28 23:44] VITALS: BP 148/68
[2024-01-29] VITALS (19 sets, daily range): BP systolic 118–170; BP diastolic 57–77
[2024-01-29] MEDS: SYNTHROID 37.5 MCG PO (05:18)
[2024-01-29] MEDS: PROCARDIA XL (EXTENDED RELEASE) 60 MG PO (05:23)
--- NOTE | 2024-01-29 07:00 | PTCARENOTE ---
01/28- Patient taken to Cardiac Catheterization for his procedure. AM Meds will be administered as ordered upon return.
--- NOTE | 2024-01-29 07:27 | W.SUR.PREOP ---
Pre-Operative Surgical Note
-
I have examined this patient prior to the performance of the scheduled procedure.
The patient's condition is unchanged from the time of the current History and
Physical and the patient is able to undergo the scheduled procedure.
--- NOTE | 2024-01-29 09:02 | W.PN.HOSP.TC ---
Today's Communication/Plan
-
Vascular procedure today.
Assessment / Plan
Assessment / Plan
Vascular procedure today:
Procedure:
1. Duplex assisted left common femoral artery cannulation.
2. Aortogram and pelvic angiogram.
3. Right lower extremity arteriogram with third order vessel catheterization of right peroneal and posterior tibial arteries via left common femoral artery puncture.
4. Balloon angioplasty of above, behind, below-knee popliteal artery with 4 mm angioplasty drug-coated Bard Lutonix balloon.
5. Right htfbl-[id number]-ehks popliteal artery stent placement with [employer] Zilver PTX 6 mm x 6 cm.
6. Extensive balloon angioplasty of right peroneal artery with 2.5 mm angioplasty balloon.
7. Extensive balloon angioplasty of right posterior tibial artery with 2.5 mm angioplasty balloon.
8. Balloon angioplasty of mid to distal right posterior tibial artery with 3 mm angioplasty balloon.
9. Left femoral angiogram and Weber Pro-glide Perclose suture closure.
10. Supervision and interpretation.
A/P:
CVS: S1-S2 normal
Chest: CTA B/L
Abdomen: Soft, NT , Bowel sounds present
01/21/24 13:54 Urine Urine Culture - Final
Pseudomonas aeruginosa
Enterococcus faecalis
CT A/P: New moderate abdominal and pelvic lymphadenopathy as described above and consistent with malignancy until proven otherwise. Findings suggesting mild blastic osseous metastatic disease. New. Mild left hydronephrosis probably due to
displacement of the ureter by the upper abdominal lymphadenopathy. New. Tiny left pleural effusion. New. Minimal bibasilar atelectasis. Improved on the right. New on the left. Gallstones. Stable. Bilateral simple renal cysts. Stable. Moderate fecal
material throughout the colon. Moderate diverticulosis. Stable. Severe diffuse bladder wall thickening partially due to limited distention. Cystitis and bladder outlet obstruction not excluded. New. Palm catheter present in the bladder. New.
CT head: No acute intracranial abnormality noted. Mild atrophy. Stable. 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 Clinical correlation recommended. Progressed. Moderate periventricular small vessel ischemic disease. Stable. Old
bilateral lacunar infarcts. Stable. Mild nonacute right ethmoid sinusitis. Stable.
CXR: Tiny left pleural effusion. New.
B/L LE arterial U/S with ABIs:
RIGHT LOWER EXTREMITY: LEX moderately reduced at 0.66 (prior 1.03). TBI severely reduced at 0.37 (prior 0.69). Arterial duplex examination reveals multiphasic waveforms from the common femoral artery through the popliteal artery. There is a focal
velocity elevation in the popliteal artery at 288 cm/s however the ratio remains less than 2 suggesting a nonsignificant stenosis. Presence of tibial artery disease is suspected.
LEFT LOWER EXTREMITY: LEX moderately reduced at 0.64 (prior 1.02). Toe pressure 0. Arterial duplex examination reveals multiphasic waveforms from the common femoral artery through the distal superficial femoral artery. There is a transition to
monophasic waveforms in the popliteal artery. There is a focal velocity elevation in the mid superficial femoral artery at 268 cm/s (ratio 2.9) suggesting a greater than 50% stenosis at this location. There is an additional velocity elevation in the
popliteal artery at 452 cm/s (ratio 8.3) suggesting a greater than 75% stenosis at this location.
Acute metabolic encephalopathy likely due to acute CAUTI:
-UCx with now with Pseudomonas and Enterococcus, cont to follow for susceptibilities
-was on Zosyn, now on Cipro through 02/05/24 as per ID
-Leukocytosis lopez resolved
-Palm exchanged 01/23/24
Bilateral heel ulcers and R dorsal toe ulcer:
-bilateral deep dermal stage 2 vs stage 3 heel pressure injuries
-B/L LE arterial U/S with ABIs as above
-vascular following, for arteriogram 01/29/24
-wound care
Abdominal pelvic lymphadenopathy and mild blastic osseous metastatic disease:
-h/o enlarged prostate on finasteride, has had a Palm for the past 18 months
-with elevated PSA concern for metastatic prostate cancer
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
-Casodex started, for Malorie in 2 weeks
Other problems:
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
Paroxysmal atrial fibrillation: h/o ablation 2010, cont sotalol/Eliquis
Essential Hypertension: Cont Nifedipine
Hypothyroidism: cont Synthroid
Anemia of chronic disease and Fe def: cont PO Fe
Bipolar d/o: cont divalproex
HLD: Cont statin
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
h/o IVC filter
HERNANDO, noncompliant with CPAP at home
DNR
DVT Prophylaxis-Eliquis
Anticipated Discharge: 24 - 48 hours
Subjective/Interval History
-
Date of Service: January 29, 2024
Patient seen postprocedure lying in bed. No chest pain or shortness of breath. Afebrile
Objective Data
-
Labs:
Laboratory Results
01/29/24
06:00
WBC Pending
Hgb Pending
Hct Pending
Plt Count Pending
PT Pending
INR Pending
APTT Pending
Sodium Pending
Potassium Pending
Chloride Pending
Carbon Dioxide Pending
BUN Pending
Creatinine Pending
Glucose Pending
Calcium Pending
Vital Signs:
Vital Signs
Temp Pulse Resp BP Pulse Ox
97.9 F 76 14 155/74 95
01/29/24 07:00 01/29/24 07:00 01/29/24 07:00 01/29/24 07:00 01/29/24 07:00
I&O
01/28/24 01/29/24 01/30/24
06:59 06:59 06:59
Intake Total 840 / 840 960 / 960
Output Total 875 / 875 800 / 800
Balance -35 / -35 160 / 160
--- NOTE | 2024-01-29 09:06 | W.SUR.POST ---
Surgical Immediate Post Op
Note
Pre Op Diagnosis: Peripheral arterial disease, right foot wounds
Post Op Diagnosis: Same
Procedure Performed: Right lower extremity arteriogram, right above-knee pop to distal SFA angioplasty and stent, signs of angioplasty peroneal and posterior tibial arteries
Primary Surgeon: Prashanth Barron MD
Secondary Surgeons: N/A
Anesthesia: MAC
Estimated Blood Loss: 2 ml
Fluids: See anesthesia flowsheet
Drains/Shunts: N/A
Specimens/Cultures: N/A
Doppler/Duplex/Angio (Y/N): Y
Complications: None
Operative Findings: Successful endovascular intervention
--- NOTE | 2024-01-29 09:27 | OR.RPT ---
Operative Report
Operative Report
PROCEDURE DATE: 01/29/2024
Preoperative diagnosis: Chronic limb threatening ischemia bilateral lower extremities (bilateral heel ulcerations) with additional left toe small, early dry gangrene.
Postoperative diagnosis: Same
Procedure:
1. Duplex assisted left common femoral artery cannulation.
2. Aortogram and pelvic angiogram.
3. Right lower extremity arteriogram with third order vessel catheterization of right peroneal and posterior tibial arteries via left common femoral artery puncture.
4. Balloon angioplasty of above, behind, below-knee popliteal artery with 4 mm angioplasty drug-coated Bard Lutonix balloon.
5. Right [id number]-[id number]-tpah popliteal artery stent placement with [employer] Adhesivelver PTX 6 mm x 6 cm.
6. Extensive balloon angioplasty of right peroneal artery with 2.5 mm angioplasty balloon.
7. Extensive balloon angioplasty of right posterior tibial artery with 2.5 mm angioplasty balloon.
8. Balloon angioplasty of mid to distal right posterior tibial artery with 3 mm angioplasty balloon.
9. Left femoral angiogram and Weber Pro-glide Perclose suture closure.
10. Supervision and interpretation.
Surgeon: Anderson
Office Services Associate: None
Complications: None
Anesthesia: Local, sedation
Fluoroscopy:
17.9 min
75 mGy
15.79 Gy.cm2
Indications for procedure:
Bilateral heel ulcerations likely pressure related. Nonhealing. In addition right first 2 toes with distal tip early gangrenous changes or ischemic changes. Risk/benefits/alternatives of angiography were fully discussed. Patient and his family
understood all wish to proceed.
Description of procedure:
Patient was identified, brought to the operating room. Placed on the table in the supine position. After the adequate administration of anesthesia, the patient was prepped and draped in the standard surgical fashion. A standard preoperative
timeout was undertaken and everybody was in agreement with the plan.
The left common femoral artery was accessed with a micropuncture kit under direct duplex ultrasound guidance. A 5 Swedish sheath was then advanced over a 0.035 inch wire, and a villarreal's hook catheter was advanced into the abdominal aorta.
Aortogram and pelvic angiogram was obtained. Findings as follows:
Infrarenal aorta: Patent with no significant stenosis.
Right common iliac artery: Patent with no significant stenosis.
Right external iliac artery: Patent with no significant stenosis.
Left common iliac artery: Patent with no significant stenosis.
Left external iliac artery: Patent with no significant stenosis.
Using a floppy angled hydrophilic wire, the right common femoral artery was cannulated and the catheter was advanced. Right lower extremity arteriogram was obtained. Findings as follows:
Common femoral artery: Patent with mild luminal irregularities but no significant stenosis.
Profunda femoris artery: Patent with mild luminal irregularities, but no definitive stenosis. There may have been a mild stenosis in the mid profunda but difficult to say.
Superficial femoral artery: Patent with luminal irregularities throughout especially in the proximal third, but no apparent high-grade stenoses.
Popliteal artery: Patent, difficult to image secondary to knee hardware, but was able to frog-leg and image completely. Severe above the knee, behind knee stenoses.
Anterior tibial artery: Chronically occluded.
Tibial peroneal trunk: Patent with no significant stenosis.
Peroneal artery: Patent with diffuse areas of stenosis (high-grade) and proximal 1/3-1/2.
Posterior tibial artery: Patent with diffuse disease/areas of stenoses (several high-grade) throughout. More normal caliber reconstituted flow in the very distal posterior tibial artery at the ankle.
At this point I then selectively cannulated the superficial femoral artery and then exchanged over a Storq wire for a 6 Swedish up and over sheath. The patient was given 6000 interventions heparin. Next under roadmap assisted guidance I was able to
traverse the area of popliteal artery occlusion. I then gained wire access into the peroneal artery distally. (0.035 inch wire). I now performed balloon angioplasty of the popliteal stenoses with 4 mm long segment drug-coated Bard Lutonix
angioplasty balloon. Prolonged inflation of 2 minutes was undertaken. Completion angiogram demonstrated good result below the knee, but above the knee there was still significant residual stenosis. Therefore at this point I elected to stent this.
A Cook Zilver PTX 6 mm x 6 cm stent was deployed in the standard fashion and post angioplasty with a 5 mm balloon. Completion angiogram now demonstrated good result with no residual significant stenosis. At this point since I had a 0.035 inch
wire in the distal peroneal artery, I exchanged over a CXI catheter for a 0.014 inch wire. I then performed balloon angioplasty of the proximal one half of the peroneal artery encompassing the stenotic segments. This was done with a 2.5 mm
angioplasty balloon. Completion angiogram demonstrated excellent result with now brisk flow through the peroneal artery and no residual stenosis. At this point using a 2.6 Swedish CXI catheter and a 0.014 inch steerable wire I selectively
cannulated the posterior tibial artery and then gained distal wire access to the level of the ankle and then onto the foot. Angiogram confirmed I was in the true lumen. I then performed long segment angioplasty of the entire posterior tibial
artery with 2.5 mm angioplasty balloon. Completion angiogram demonstrated excellent result in the proximal two thirds. The distal one third segment had a good result but there was still some residual stenosis diffusely and it was undersized
compared to the artery above and below it. I therefore then exchanged for a 3 mm angioplasty balloon and performed angioplasty of that segment with a 3 mm balloon. Again prolonged inflation was undertaken. Completion angiogram demonstrated an
excellent result now. This point is very satisfied. I then withdrew my sheath to the left external iliac artery. Left femoral angiogram demonstrated good puncture in the left common femoral artery. Left femoral angiography demonstrated a
high-grade SFA stenosis in the mid to distal segment. At this point I was very satisfied and I felt that I would not image further down the left leg in order to avoid extensive contrast exposure. Therefore I then used a Weber Pro-glide Perclose
percutaneous suture to suture close the puncture site. There was still little oozing and therefore manual pressure was applied and the patient was given protamine as well. Hemostasis was fully achieved. The patient tolerated procedure well. He
had a palpable 1+/2+ PT pulse on the right foot upon completion.
[2024-01-29] MEDS: ASPIR LOW (ENTERIC COATED) 81 MG PO (10:24)
[2024-01-29] MEDS: MIRALAX 17 GRAMS PO (10:25)
[2024-01-29] MEDS: BETAPACE 80 MG PO ×2 (10:25→20:01)
[2024-01-29] MEDS: SENOKOT 17.2 MG PO ×2 (10:26→20:02)
[2024-01-29] MEDS: CASODEX 50 MG PO (10:26)
[2024-01-29] MEDS: CIPRO 750 MG PO ×2 (10:26→20:01)
[2024-01-29] MEDS: FEOSOL 325 MG PO ×2 (10:27→21:04)
[2024-01-29] MEDS: COLACE 100 MG PO ×2 (10:28→20:01)
[2024-01-29] MEDS: PROSCAR 5 MG PO (10:28)
[2024-01-29] MEDS: THERAGRAN 1 TABLET PO (10:29)
[2024-01-29 11:49] LABS: Hematocrit 28.8 % (39.0-52.0); Hemoglobin 9.1 g/dL (13.0-18.0); Mean Corp Hgb Conc. 31.6 g/dL (33.0-37.0); Mean Corpuscular Hgb 30.4 pg (27.0-31.0); Mean Corpuscular Volume 96.3 fL (80.0-94.0); Mean Platelet Volume 9.4 fL (7.4-10.4); Platelet Count 309 10^3/uL (130-400); Red Blood Cell Count 2.99 10^6/uL (4.70-6.10); Red Cell Dist. Width 15.2 % (11.5-14.5); White Blood Cell Count 7.5 10^3/uL (4.8-10.8)
[2024-01-29 11:59] LABS: INR 1.33; PT 16.3 Sec (11.4-14.6)
[2024-01-29 12:00] LABS: APTT 34.9 Sec (23.4-35.0)
[2024-01-29 12:08] LABS: Blood Urea Nitrogen 17 mg/dl (9-20); Calcium 9.3 mg/dl (8.4-10.2); Carbon Dioxide 27 mmol/L (22-30); Chloride 104 mmol/L (98-107); Estimated Creatinine Clearance 89 ml/min; Glucose 90 mg/dl (70-99); Potassium 4.3 mmol/L (3.5-5.1); Sodium 136 mmol/L (135-145); eGFR > 60.00
[2024-01-29] MEDS: NSS 1000 IV (12:59)
--- NOTE | 2024-01-29 13:03 | CM ---
Chart reviewed and patient is for possible procedure today, plan is for skilled placement when stable at [facility].
Plan; To follow up with skilled placement at [facility].
[2024-01-29 15:28] LABS: Urine Albumin Trace (Neg - Trace); Urine Bilirubin Negative (Negative); Urine Character Clear (Clear); Urine Color Yellow; Urine Glucose Negative (Negative); Urine Ketone Negative (Negative); Urine Leukocyte Negative (Negative); Urine Nitrite Negative (Negative); Urine Occult Blood 4+ (Negative); Urine Specific Gravity 1.025 (<1.030); Urine Urobilinogen Negative (Neg - 1+)
[2024-01-29 16:24] LABS: Urine Bacteria Moderate (Negative); Urine Mucus Moderate; Urine Red Blood Cell 50-60 /HPF (0-2); Urine White Cell 0-2 /HPF (0-5)
[2024-01-29] MEDS: DEPAKOTE (12 HR RELEASE) 1000 MG PO (16:54)
[2024-01-29] MEDS: LIPITOR 10 MG PO (20:01)
[2024-01-29] MEDS: ELIQUIS 5 MG PO (20:01)
[2024-01-30] VITALS (8 sets, daily range): BP systolic 119–156; BP diastolic 57–70; PULSE 70
[2024-01-30] MEDS: SYNTHROID 37.5 MCG PO (05:13)
[2024-01-30] MEDS: PROCARDIA XL (EXTENDED RELEASE) 60 MG PO (05:14)
[2024-01-30 06:31] LABS: Hematocrit 26.7 % (39.0-52.0); Hemoglobin 8.5 g/dL (13.0-18.0); Mean Corp Hgb Conc. 31.8 g/dL (33.0-37.0); Mean Corpuscular Hgb 30.1 pg (27.0-31.0); Mean Corpuscular Volume 94.7 fL (80.0-94.0); Mean Platelet Volume 9.4 fL (7.4-10.4); Platelet Count 301 10^3/uL (130-400); Red Blood Cell Count 2.82 10^6/uL (4.70-6.10); Red Cell Dist. Width 15.1 % (11.5-14.5); White Blood Cell Count 7.9 10^3/uL (4.8-10.8)
[2024-01-30 07:00] LABS: Blood Urea Nitrogen 16 mg/dl (9-20); Calcium 9.1 mg/dl (8.4-10.2); Carbon Dioxide 28 mmol/L (22-30); Chloride 103 mmol/L (98-107); Estimated Creatinine Clearance 89 ml/min; Glucose 98 mg/dl (70-99); Potassium 4.4 mmol/L (3.5-5.1); Sodium 137 mmol/L (135-145); eGFR > 60.00
[2024-01-30] MEDS: PROSCAR 5 MG PO (07:33)
[2024-01-30] MEDS: BETAPACE 80 MG PO ×2 (07:33→20:43)
[2024-01-30] MEDS: CASODEX 50 MG PO (07:33)
[2024-01-30] MEDS: ELIQUIS 5 MG PO ×2 (07:34→20:43)
[2024-01-30] MEDS: FEOSOL 325 MG PO ×2 (07:34→21:09)
[2024-01-30] MEDS: COLACE 100 MG PO ×2 (07:34→20:43)
[2024-01-30] MEDS: SENOKOT 17.2 MG PO ×2 (07:34→20:43)
[2024-01-30] MEDS: ASPIR LOW (ENTERIC COATED) 81 MG PO (07:35)
[2024-01-30] MEDS: CIPRO 750 MG PO ×2 (07:35→20:42)
[2024-01-30] MEDS: MIRALAX 17 GRAMS PO (07:38)
--- NOTE | 2024-01-30 08:41 | W.PN.VS ---
Addendum entered and electronically signed by Prashanth Barron MD 01/30/24 10:29:
Seen and examined with VERONICA Rao. Agree with findings as noted below. Left groin puncture site flat, no hematoma. Right foot warm with 2+ palpable PT pulse. Plan/as discussed and noted below. Will see him in close follow-up to reassess his wounds
and determine whether he will need a staged left lower extremity angiogram or whether he is healing his heel ulcer well.
Original Note:
Today's Communication / Plan
-
Patient seen and evaluated at bedside with attending Dr. Prashanth Barron, below plan reviewed with attending
Assessment/Plan
-
Assessment: POD #1 Right lower extremity arteriogram, Balloon angioplasty of above, behind, below-knee popliteal artery with 4 mm angioplasty drug-coated Bard Lutonix balloon. Right [id number] popliteal artery stent placement with Jalen Calvin
PTX 6 mm x 6 cm. Extensive balloon angioplasty of right peroneal artery with 2.5 mm angioplasty balloon. Extensive balloon angioplasty of right posterior tibial artery with 2.5 mm angioplasty balloon. Balloon angioplasty of mid to distal right
posterior tibial artery with 3 mm angioplasty balloon.
Plan:
Home oral anticoagulation dose restarted, continue aspirin 81 mg p.o. daily given recent stent placement
Continue statin therapy
Patient can follow-up in our office as scheduled in roughly 2 to 3 weeks, appointment placed in discharge instructions
We will sign off please call with questions or concerns
Subjective Data
-
Date of Service: January 30, 2024
Patient seen and examined at bedside, offers no complaints. Denies pain at left groin puncture site. Reports tolerating p.o. diet.
Objective Data
-
Vital Signs
Temp Pulse Resp BP Pulse Ox
99.6 F 73 16 130/61 96
01/30/24 07:27 01/30/24 07:27 01/30/24 07:27 01/30/24 07:27 01/30/24 07:27
Intake and Output
01/29/24 01/30/24 01/31/24
06:59 06:59 06:59
Intake Total 960 / 960 290 / 290
Output Total 800 / 800 910 / 910
Balance 160 / 160 -620 / -620
Intake:
Oral fluids 960 / 960 240 / 240
IV fluids (Total) 50 / 50
Normosol 50 / 50
Output:
Urine, Palm 550 / 550 910 / 910
Urine, Voided 250 / 250
Lab Results
01/30/24 06:04
01/30/24 06:04
Calcium 9.1 mg/dl (8.4-10.2) 01/30/24 06:04
Magnesium 2.2 mg/dl (1.6-2.3) 01/22/24 06:37
Total Bilirubin Cancelled 01/21/24 13:54
AST Cancelled 01/21/24 13:54
ALT Cancelled 01/21/24 13:54
Alkaline Phosphatase Cancelled 01/21/24 13:54
Total Protein Cancelled 01/21/24 13:54
Albumin Cancelled 01/21/24 13:54
Physical Exam
-
Awake and alert, no apparent distress resting in bed comfortably
No tachycardia
No dyspnea on room air
ABD nondistended, nontender
Left groin puncture site CDI, no evidence of hematoma, surrounding compartments soft
Right DP +1 palpable, bilateral lower extremities warm
--- NOTE | 2024-01-30 11:00 | W.PN.HOSP.TC ---
Today's Communication/Plan
-
Urology eval.
Assessment / Plan
Assessment / Plan
Physical exam:
General: Chronically ill and No Apparent Distress
HEENT: Normocephalic, Atraumatic and Moist Mucous Membranes
Respiratory: Clear to Auscultation; Negative Wheezes, Rales or Rhonchi
Cardiac: Regular Rhythm and S1/S2
GI: Soft, Nontender and Nondistended
Musculoskeletal: Bilateral heel wounds and postop left groin C/D/I. No Clubbing, No Cyanosis and No Edema
Neuro: Awake, Alert and Oriented, generalized weakness, no neuro-deficits.
Psych: Calm
A/P:
Acute toxic metabolic encephalopathy:
Improving
Likely related to infection and metabolic
Treated with antibiotics
Plan to go to rehab
Discussed with rn case manager hospice today
Updated over the phone today
Complicated UTI (CAUTI) due to Pseudomonas and Enterococcus:
On antibiotics, ciprofloxacin 750 mg twice a day until 02/04
ID consult appreciated
Repeat urine culture pending but likely would not acid changer
Urology input requested by family as well
Hematuria likely due to UTI and malignancy:
Urology eval
Suspected metastatic prostate cancer:
On Casodex per oncology
PSA 114 with sharmila and blastic bony metastasis
Plan to do PET as outpatient
Oncology consult appreciated
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
Continue to follow CBC count
Oncology follow-up warranted
Nonhealing ulcer lower extremities in the setting of chronic limb threatening ischemia:
Status post right lower extremity revascularization on 01/28 by vascular surgery
Continue aspirin, Eliquis, and statins
Vascular surgery will readdress left lower extremity and reevaluate ulcers as outpatient.
Paroxysmal atrial fibrillation:
Not on rate control agents
Continue antiarrhythmic agents, sotalol 80 mg twice a day
Continue anticoagulation, DOAC-Eliquis 5 mg twice a day
Continue cardiac monitoring
Other medical problems:
Hypertension
Hypothyroidism
Anemia of chronic disease
Bipolar
Hyperlipidemia
CVA
HERNANDO
DVT
DVT prophylaxis:
Continue Eliquis
CODE STATUS:
DNR
Anticipated Discharge: 24 - 48 hours
Subjective/Interval History
-
Date of Service: January 30, 2024
Objective Data
-
Labs:
Laboratory Results
01/30/24
06:04
WBC 7.9
Hgb 8.5 L
Hct 26.7 L
Plt Count 301
Sodium 137
Potassium 4.4
Chloride 103
Carbon Dioxide 28
BUN 16
Creatinine 0.7
Glucose 98
Calcium 9.1
Vital Signs:
Vital Signs
Temp Pulse Resp BP Pulse Ox
99.6 F 73 16 130/61 97
01/30/24 07:27 01/30/24 07:27 01/30/24 07:27 01/30/24 07:27 01/30/24 07:35
I&O
01/29/24 01/30/24 01/31/24
06:59 06:59 06:59
Intake Total 960 / 960 290 / 290
Output Total 800 / 800 910 / 910
Balance 160 / 160 -620 / -620
--- NOTE | 2024-01-30 11:47 | CONS.URO ---
Consultation
-
Performing Provider: [place]
Reason for Consultation: hematuria
Medical History
History of Present Illness
admitted 01/21/2024 to hospitalists' service with weakness
subsequently diagnosed with metastatic prostate cancer
Urology History:
Dr. Cruz's September, note
�������Previously seeing Dr. Gordon for BPH with LUTS.
�������Started on finasteride by Dr. Gordon initially - noted to have stable LUTS.
�������Started on tamsulosin initially - discontinued by debarker operator due to orthostatic hypotension.
�������Re-started on tamsulosin by Dr. Yeboah - SBPs continued to below, discontinued again.
�������Notes significant frequency, urgency, and urge-related incontinence.
�������====
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
�������Has noted some worsening of LUTS after his CVAs several years ago.
�������PSA levels <1.0 (last in 2020).
�������====
�������Started on trial of vibegron 75 mg daily - pt noted constipation, so he stopped it.
�������Continues with frequency, urgency, urge incontinence.
�������UDS completed 01/14/22: neurogenic detrusor overactivity, no bladder outlet obstruction noted, able to void to completion w/ minimal PVR.
�������Started on tolterodine 2 mg BID without significant improvement in daytime frequency/UUI.
�������Nocturia x4.
�������====
�������Pt and spouse decided to proceed w/ indweling Palm catheter - leakage issues resolved w/ improved QOL.
�������Recent admission to in late 08/2023 for cUTI.
�������Of note, no prior UTI episodes noted over last several months of catheter changes [id number].
�������UCx => Citrobacter.
2022 - present: numerous UTI's
Past Medical History
Past Medical History: None ( DDD (degenerative disc disease), Hypothyroidism, IGT (impaired glucose tolerance), White matter disease, Pruritus ani, Hemorrhoids, Bipolar Disorder Depressed Uns, Hypertension, Benign, Diverticulosis, MVP (mitral valve
prolapse), Fatty infiltration of liver, Chronic gastritis, Pulmonic regurgitati)
Past Surgical History: Other (: PEG tube placement 11/2015, Loop recorder implant 09/2015, Loop recorder implant 04/2012, Ablation 06/2011, Cardioversion 10/2010, Bilateral cataracts 04/2018, knee replacement both knees 2004, right knee replacement
re done 2009. LE angioplasty during this hospitalization)
Allergies/Home Medications
Allergies
Allergy/AdvReac Type Severity Reaction Status Date / Time
cephalexin [Cephalexin] Allergy Hives Verified 01/23/24 13:20
tamsulosin [From Flomax] Allergy lightheadness, Verified 01/21/24 13:44
low BP,
and
passing out
vancomycin Allergy rash, Verified 01/23/24 13:20
itching
Home Medications
�Medication �Instructions �Recorded �Confirmed �Type
glucosamine sulfate dipotassium Cl 1 cap PO NOON Supplement 07/16/20 01/21/24 History
500 mg-chondroitin 400 mg capsule
(Glucosamine Sulfate 2
KCL-Chondroitin)
atorvastatin 10 mg tablet 10 mg PO DAILY@2000 High 09/25/20 01/21/24 History
cholesterol
divalproex 500 mg tablet,delayed 1,000 mg PO DAILY@1700 03/26/21 01/21/24 History
release Neurological Condition
omega 3-ckt-djp-fish oil 900 1 cap PO NOON Supplement ##0 03/26/21 01/21/24 History
mg-1,400 mg capsule,delayed release
apixaban 5 mg tablet (Eliquis) 5 mg PO BID Blood clot 06/07/21 01/21/24 History
prevention/tx
levothyroxine 75 mcg tablet 37.5 mcg (1/2 x 75 mcg) PO 06/10/21 01/21/24 Rx
DAILY@0700 Thyroid
sotalol 80 mg tablet 80 mg PO BID 07/27/21 01/21/24 Rx
vitamin B complex 1 tab PO NOON supplement 06/16/22 01/21/24 History
finasteride 5 mg tablet 5 mg PO DAILY #0 tabs 06/22/22 01/21/24 Rx
nifedipine 30 mg tablet,extended 60 mg PO DAILY@0700 blood pressure 09/11/23 01/21/24 History
release 24 hr
therapeutic multivitamin 1 tab PO NOON supplement 09/11/23 01/21/24 History
acetaminophen 500 mg tablet 1,000 mg PO Q6HPRN PRN mild pain 12/09/23 01/21/24 History
(Tylenol Extra Strength)
docusate sodium 100 mg capsule 100 mg PO BIDPRN PRN constipation 12/09/23 01/21/24 History
(Colace)
methenamine hippurate 1 gram 1 g PO DAILY Urinary Issue 12/09/23 01/21/24 History
tablet (Hiprex)
polyethylene glycol 3350 17 gram 17 g PO DAILYPRN PRN constipation 12/09/23 01/21/24 History
oral powder packet
psyllium husk 3.4 gram/5.4 gram 1 - 2 tbsp PO BIDPRN PRN 01/21/24 01/21/24 History
oral powder (Metamucil) constipation
Physical Exam
Vital Signs
Vital Signs
Temp Pulse Resp BP Pulse Ox
98.4 F 74 22 119/61 97
01/30/24 11:00 01/30/24 11:00 01/30/24 11:00 01/30/24 11:00 01/30/24 11:00
Lab / Testing Results
Laboratory Results
01/30/24 06:04
01/30/24 06:04
Physical Exam
adult male seated upright in hospital bed
General: No Apparent Distress
GI: Soft and Non Tender
Genito-urinary: Palm Catheter (cori urine)
Assessment / Plan
-
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
recurrent CAUTIs
newly diagnosed metastatic prostate cancer -- PSA 114; Malorie initiated by med-onc
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
Rec:
tx current UTI
f/u with Dr Cruz as an outpatient
Data Reviewed
-
CT Scan: Image personally visualized and interpreted (Left retroperitoneal LAD with partial obstruction of ureter; left renal cyst; osseous mets in pelvis)
Lab Data: Labs Reviewed (2022 - present: numerous UTI's; PSA 114)
Old Records: Reviewed
[2024-01-30] MEDS: THERAGRAN 1 TABLET PO (11:53)
--- NOTE | 2024-01-30 15:07 | CM ---
outsole caser reviewed patient's chart and met with patient and spouse and spoke with physician and patient has not been cleared for discharge today, plan is for possible discharge tomorrow, outsole caser reached out to [facility] and will contact them
tomorrow to check on a bed for patient.
Plan; Skilled placement at [facility] when stable.
[2024-01-30] MEDS: DEPAKOTE (12 HR RELEASE) 1000 MG PO (16:50)
[2024-01-30] MEDS: LIPITOR 10 MG PO (20:43)
[2024-01-30] MEDS: TYLENOL 1000 MG PO (21:09)
[2024-01-31 03:45] VITALS: BP 154/69
[2024-01-31] MEDS: SYNTHROID 37.5 MCG PO (06:04)
[2024-01-31] MEDS: PROCARDIA XL (EXTENDED RELEASE) 60 MG PO (06:05)
[2024-01-31 07:48] VITALS: BP 130/66
--- NOTE | 2024-01-31 08:11 | W.PN.ONC2 ---
Today's Communication / Plan
-
Casodex. ADC to SNF shortly
Impression
Impression
Suspected metastatic prostate cancer with PSA = 114 and both sharmila and blastic bony metastasis
History of mild relatively stable clinical MDS
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
Normal pressure hydrocephalus
Plan
Plan
continue Casodex.
Initiate Lupron as outpatient after discharged from hospital/SNF
Check PSMA PET as outpatient for accurate staging and discuss management options based on GOC.
Subjective/Objective
Chief Complaint
ACS Heme Onc
Subjective
No new complaints. S/P
Vital Signs:
Vital Signs
Temp Pulse Resp BP Pulse Ox
97.6 F 67 20 153/75 96
01/31/24 03:45 01/31/24 06:05 01/31/24 03:45 01/31/24 06:05 01/31/24 03:45
Lab Results:
Laboratory Data
WBC 7.9 10^3/uL (4.8-10.8) 01/30/24 06:04
Hgb 8.5 g/dL (13.0-18.0) L 01/30/24 06:04
Plt Count 301 10^3/uL (130-400) 01/30/24 06:04
PT 16.3 Sec (11.4-14.6) H 01/29/24 11:16
INR 1.33 01/29/24 11:16
APTT 34.9 Sec (23.4-35.0) 01/29/24 11:16
eGFR > 60.00 01/30/24 06:04
Physical Exam
Cardiology: S1 and S2
Pulmonary: Clear
GI: Soft
[2024-01-31] MEDS: COLACE 100 MG PO (08:28)
[2024-01-31] MEDS: MIRALAX 17 GRAMS PO (08:28)
[2024-01-31] MEDS: CIPRO 750 MG PO (08:28)
[2024-01-31] MEDS: BETAPACE 80 MG PO (08:29)
[2024-01-31] MEDS: SENOKOT 17.2 MG PO (08:29)
[2024-01-31] MEDS: ELIQUIS 5 MG PO (08:29)
[2024-01-31] MEDS: ASPIR LOW (ENTERIC COATED) 81 MG PO (08:29)
[2024-01-31] MEDS: CASODEX 50 MG PO (08:29)
[2024-01-31] MEDS: PROSCAR 5 MG PO (08:29)
[2024-01-31] MEDS: FEOSOL 325 MG PO (08:30)
--- NOTE | 2024-01-31 08:58 | W.PN.HOSP.TC ---
Today's Communication/Plan
-
Discharge planning today.
Assessment / Plan
Assessment / Plan
Physical exam:
General: Chronically ill and No Apparent Distress
HEENT: Normocephalic, Atraumatic and Moist Mucous Membranes
Respiratory: Clear to Auscultation; Negative Wheezes, Rales or Rhonchi
Cardiac: Regular Rhythm and S1/S2
GI: Soft, Nontender and Nondistended
Musculoskeletal: Bilateral heel wounds and postop left groin C/D/I. No Clubbing, No Cyanosis and No Edema
Neuro: Awake, Alert and Oriented, generalized weakness, no neuro-deficits.
Psych: Calm
A/P:
Acute toxic metabolic encephalopathy:
Improving
Likely related to infection and metabolic
Treated with antibiotics
Plan to go to rehab
Discussed with case repairer today
Updated over the phone prior
Plan to discharge today
Complicated UTI (CAUTI) due to Pseudomonas and Enterococcus:
On antibiotics, ciprofloxacin 750 mg twice a day until 02/04
ID consult appreciated
Repeat urine culture and clear but instructed to finish course of antibiotics as per ID guidance.
Urology consult appreciated.
Hematuria likely due to UTI and malignancy:
Urology eval and will follow-up as outpatient
Suspected metastatic prostate cancer:
On Casodex per oncology
PSA 114 with sharmila and blastic bony metastasis
Plan to do PET as outpatient
Oncology consult appreciated
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
Continue to follow CBC count
Oncology follow-up warranted
Nonhealing ulcer lower extremities in the setting of chronic limb threatening ischemia:
Status post right lower extremity revascularization on 01/28 by vascular surgery
Continue aspirin, Eliquis, and statins
Vascular surgery will readdress left lower extremity and reevaluate ulcers as outpatient.
Paroxysmal atrial fibrillation:
Not on rate control agents
Continue antiarrhythmic agents, sotalol 80 mg twice a day
Continue anticoagulation, DOAC-Eliquis 5 mg twice a day
Continue cardiac monitoring
Other medical problems:
Hypertension
Hypothyroidism
Anemia of chronic disease
Bipolar
Hyperlipidemia
CVA
HERNANDO
DVT
DVT prophylaxis:
Continue Eliquis
CODE STATUS:
DNR
Anticipated Discharge: Today
Subjective/Interval History
-
Date of Service: January 31, 2024
Patient does not voice any new complaints. Alert.
Objective Data
-
Labs:
Laboratory Results
01/31/24
06:00
WBC Pending
Hgb Pending
Hct Pending
Plt Count Pending
Sodium Pending
Potassium Pending
Chloride Pending
Carbon Dioxide Pending
BUN Pending
Creatinine Pending
Glucose Pending
Calcium Pending
Vital Signs:
Vital Signs
Temp Pulse Resp BP Pulse Ox
97.8 F 66 18 130/66 96
01/31/24 07:48 01/31/24 08:29 01/31/24 07:48 01/31/24 08:29 01/31/24 07:48
I&O
01/30/24 01/31/24 02/01/24
06:59 06:59 06:59
Intake Total 290 / 290 480 / 480
Output Total 910 / 910 750 / 750
Balance -620 / -620 -270 / -270
[2024-01-31 09:33] LABS: Hematocrit 28.9 % (39.0-52.0); Hemoglobin 9.4 g/dL (13.0-18.0); Mean Corp Hgb Conc. 32.5 g/dL (33.0-37.0); Mean Corpuscular Hgb 31.2 pg (27.0-31.0); Mean Platelet Volume 9.5 fL (7.4-10.4); Platelet Count 291 10^3/uL (130-400); Red Blood Cell Count 3.01 10^6/uL (4.70-6.10); Red Cell Dist. Width 15.4 % (11.5-14.5); White Blood Cell Count 7.1 10^3/uL (4.8-10.8)
[2024-01-31 10:50] LABS: Blood Urea Nitrogen 15 mg/dl (9-20); Calcium 9.3 mg/dl (8.4-10.2); Carbon Dioxide 27 mmol/L (22-30); Chloride 103 mmol/L (98-107); Estimated Creatinine Clearance 104 ml/min; Glucose 97 mg/dl (70-99); Potassium 4.2 mmol/L (3.5-5.1); Sodium 137 mmol/L (135-145); eGFR > 60.00
[2024-01-31 11:44] VITALS: BP 126/54
--- NOTE | 2024-01-31 12:19 | W.DCSUMMARY ---
Discharge Summary
Discharge Data
Date of Admission: 01/21/24
Date of Discharge: 01/31/24
-
Pending Results: No
Hospital Course
Patient 83 years old male history of MDS not on treatment, CVA, sleep apnea, A-fib, DVT, PE, hypertension, hyperlipidemia, BPH, DJD, anemia, bipolar, presented to the hospital with generalized weakness and fever prior to presentation along with
abdominal pain and found to have CAUTI. Started on broad-spectrum IV antibiotics. ID consulted. Urine cultures grew Pseudomonas and Enterococcus. ID recommended switch antibiotics to oral quinolone and finish course as outpatient. Patient also
was found to have generalized lymphadenopathy and bony lesions along with elevated PSA over 100's and oncology consulted. Oncology felt highly suspicious for metastatic prostate cancer and elevated further evaluation as outpatient and started on
Casodex. Patient also had nonhealing bilateral heel ulcers and evaluated by vascular surgeon and found to have limb threatening ischemia for which he underwent revascularization of one of his lower extremity and will be evaluated as outpatient for
his other lower extremity. Urology also evaluated the patient during this hospital stay. Otherwise, patient afebrile and hemodynamically stable and mental status improved. He is going to be going to rehab. He will be discharged in relatively
stable condition today with close follow-up with his specialists and PCP as outpatient.
Patient is duration: 39-minutes
Discharge Plan
-
Patient Disposition: Senior Care/SNF
Discharge Diagnosis/Procedures: Urinary tract infection due to Pseudomonas and Enterococcus (catheter associated urinary tract infection). Suspicion for metastatic prostate cancer. Toxic metabolic encephalopathy. Chronic limb threatening ischemia
status post revascularization. Paroxysmal atrial fibrillation.
Diet: Low Cholesterol
Activity: No strenuous activity
Bathing Restrictions: OK to Shower
Blood Work: Please PCP to order CBC, BMP within 1 week
Activity Restrictions/Additional Instructions:
Wound Care Instructions
Bilateral heels-clean with saline or Vashe wound cleanser, honey gel, foam dressing, change daily and prn loosened dressing (add alginate prn large amount of drainage).
Skin prep to R great and 2nd toe dry ulcers daily.
Barrier ointment to sacral/buttocks twice a day (i.e. Calazime).
Air mattress
Turning schedule
Elevate heels off bed with pillows or soft heel relief boots as tolerated; air chair cushion under heels/boots.
Pressure redistributing chair cushion (i.e Air chair cushion).
Follow up with wound child day care center worker or at wound care center call for an appointment.
Stand Alone Forms: DC Instr - Vascular OR
Referrals:
Alvarado Cruz MD [Active] - in two to three weeks
Maverick Yeboah MD [Family Provider] - in less than 1 week
Radha Garcia MD [Active] - in one to two weeks
Cari Cai CRNP [Specified Professional Personl] - 02/13/24 9:45 am
Fracisco Rizo MD [Active] - in two to three weeks
Prescriptions:
New
bicalutamide 50 mg Tablet
50 mg PO DAILY 30 Days Qty: 30 0RF
ciprofloxacin HCl 500 mg Tablet
750 mg PO BID 6 Days Qty: 18 0RF
Continued
Glucosamine Sulf-Chondroitin 1 EACH capsule
1 cap PO NOON
atorvastatin 10 MG tablet
10 mg PO DAILY@2000
divalproex 500 MG tablet,delayed release (DR/EC)
1,000 mg PO DAILY@1700
omega 6-zpq-dgc-fish oil 900-1,400 mg Capsule,Delayed Release(Dr/Ec)
1 cap PO NOON Qty: 0
Eliquis 5 MG tablet
5 mg PO BID
levothyroxine 75 MCG tablet
37.5 mcg PO DAILY@0700 0RF
sotalol 80 MG tablet
80 mg PO BID 0RF
vitamin B complex Tablet
1 tab PO NOON
finasteride 5 mg Tablet
5 mg PO DAILY Qty: 0 0RF
nifedipine 30 mg Tablet Extended Release 24hr
60 mg PO DAILY@0700
therapeutic multivitamin Tablet
1 tab PO NOON
acetaminophen [Tylenol Extra Strength] 500 mg Tablet
1,000 mg PO Q6HPRN PRN (Reason: mild pain)
docusate sodium [Colace] 100 mg Capsule
100 mg PO BIDPRN PRN (Reason: constipation)
polyethylene glycol 3350 17 gram powder in packet
17 g PO DAILYPRN PRN (Reason: constipation)
Metamucil 3.4 gram/5.4 gram Powder
1 - 2 tbsp PO BIDPRN PRN (Reason: constipation)
Held
methenamine hippurate [Hiprex] 1 gram Tablet
1 g PO DAILY
Hold Instructions: Resume on 02/05/24.
Discharge Orders:
Discharge Patient (As Directed); Ordered 01/31/24
Ordered By: Joe Hogue
Discharge Date and Time
Discharge Date/Time: 01/31/24 17:00
Print Language: SPANISH
[2024-01-31] MEDS: THERAGRAN 1 TABLET PO (12:20)
--- NOTE | 2024-01-31 12:38 | CM ---
Patient has been accepted at [facility] today
[facility]
Report [phone]
--- NOTE | 2024-01-31 14:51 | PTOTSP ---
Speech Pathology Follow Up
Planned discharge to [facility] today. Tolerating current diet level. Increased difficulty with thin liquids via straw, recommended CUP SIPS ONLY to reduce s/s of aspiration. Written handout of all safe swallowing strategies and aspiration precautions
given to patient to be brought to next level of care upon d/c.
Recommendations remain:
1. Regular solids and thin liquids
2. Single sips of liquid VIA CUP SIPS ONLY
3. Meds whole in applesauce.
4. Aspiration precautions.
5. d/c from [facility] service re: planned discharge to [facility]
[2024-01-31 14:53] VITALS: BP 148/67
[2024-01-31] MEDS: DEPAKOTE (12 HR RELEASE) 1000 MG PO (16:25)
== END 2024-01-31 17:00 | DRG 981 ==
LOC: 4 WEST ACU 18:33
PROVIDERS: Internal Medicine; Nurse Practitioner; ADMITTING PHYSICIAN Hospitalist; ATTENDING PHYSICIAN Hospitalist; CONSULT PHYSICIAN Specialist; EMERGENCY PHYSICIAN Emergency Medicine; FAMILY PHYSICIAN Family Medicine; OTHER PHYSICIAN Internal Medicine Hematology & Oncology; OTHER PHYSICIAN Student in an Organized Health Care Education/Training Program; OTHER PHYSICIAN Surgery Vascular Surgery
PROC: 047T3ZZ Dilation of Right Peroneal Artery, Percutaneous Approach (ICD-10-PCS; 2024-01-29)
PROC: 047R3ZZ Dilation of Right Posterior Tibial Artery, Percutaneous Approach (ICD-10-PCS; 2024-01-29)
PROC: 047M34Z Dilation of Right Popliteal Artery with Drug-eluting Intraluminal Device, Percutaneous Approach (ICD-10-PCS; 2024-01-29)
DX: T83.511A Infection and inflammatory reaction due to indwelling urethral catheter, initial encounter (principal); G92.8 Other toxic encephalopathy; L89.613 Pressure ulcer of right heel, stage 3; L89.623 Pressure ulcer of left heel, stage 3; C79.51 Secondary malignant neoplasm of bone; I69.351 Hemiplegia and hemiparesis following cerebral infarction affecting right dominant side; E87.1 Hypo-osmolality and hyponatremia; N13.6 Pyonephrosis; J90 Pleural effusion, not elsewhere classified; J98.11 Atelectasis; I70.263 Atherosclerosis of native arteries of extremities with gangrene, bilateral legs; Z66 Do not resuscitate; I10 Essential (primary) hypertension; E03.9 Hypothyroidism, unspecified; Z95.828 Presence of other vascular implants and grafts; F31.9 Bipolar disorder, unspecified; C61 Malignant neoplasm of prostate; B96.5 Pseudomonas (aeruginosa) (mallei) (pseudomallei) as the cause of diseases classified elsewhere; B95.2 Enterococcus as the cause of diseases classified elsewhere; Y84.6 Urinary catheterization as the cause of abnormal reaction of the patient, or of later complication, without mention of misadventure at the time of the procedure; N31.9 Neuromuscular dysfunction of bladder, unspecified; N40.1 Benign prostatic hyperplasia with lower urinary tract symptoms; N39.41 Urge incontinence; R35.0 Frequency of micturition; I48.0 Paroxysmal atrial fibrillation; K59.00 Constipation, unspecified; J32.2 Chronic ethmoidal sinusitis; K80.20 Calculus of gallbladder without cholecystitis without obstruction; E78.5 Hyperlipidemia, unspecified; K21.9 Gastro-esophageal reflux disease without esophagitis; G47.33 Obstructive sleep apnea (adult) (pediatric); D47.2 Monoclonal gammopathy; D46.9 Myelodysplastic syndrome, unspecified; K64.9 Unspecified hemorrhoids; K57.30 Diverticulosis of large intestine without perforation or abscess without bleeding; R59.1 Generalized enlarged lymph nodes; R13.10 Dysphagia, unspecified; R47.81 Slurred speech; R73.02 Impaired glucose tolerance (oral); R53.81 Other malaise; R31.9 Hematuria, unspecified; Z96.653 Presence of artificial knee joint, bilateral; Z79.01 Long term (current) use of anticoagulants; Z79.890 Hormone replacement therapy; Z79.899 Other long term (current) drug therapy; Z88.1 Allergy status to other antibiotic agents; Z88.8 Allergy status to other drugs, medicaments and biological substances; Z87.891 Personal history of nicotine dependence; Z86.711 Personal history of pulmonary embolism; Z86.79 Personal history of other diseases of the circulatory system; Z86.718 Personal history of other venous thrombosis and embolism; Z87.440 Personal history of urinary (tract) infections
CPT/HCPCS: 37226; 37228; 37232; 70450; 71046; 74177; 75625; 75716; 76937; 80048; 81003; 81015; 82607; 82728; 83521; 83540; 83550; 83735; 84155; 84165; 85025; 85027; 85610; 85730; 86850; 86870; 86900; 86901; 86922; 87077; 87086; 87186; 87811; 92526; 92610; 93005; 93922; 93925; 96374; 97116; 97162; 97167; 97530; 97535; 99285; C1725; C1760; C1769; C1874; C1887; C1894; C2623; G0103; Q9967

== ENCOUNTER → 2024-02-08 10:11 | Outpatient (REF) | payer OTHER, MEDICARE, SELFPAY ==
[2024-02-08 12:12] LABS: % Basophils 0.5 % (0-2); % Eosinophils 2.8 % (0-6); % Immature Granulocytes 0.2 % (0-0.5); % Lymphocytes 25.8 % (20.5-51.1); % Monocytes 10.9 % (1.7-9.3); % Neutrophils 59.8 % (42.2-75.2); Absolute Eosinophils 0.2 10^3/uL (0-0.7); Absolute Lymphocytes 1.6 10^3/uL (1.2-3.4); Absolute Monocytes 0.7 10^3/uL (0.1-0.6); Absolute Neutrophils 3.7 10^3/uL (1.4-6.5); Hematocrit 28.6 % (39.0-52.0); Hemoglobin 8.8 g/dL (13.0-18.0); Mean Corp Hgb Conc. 30.8 g/dL (33.0-37.0); Mean Corpuscular Hgb 31.3 pg (27.0-31.0); Mean Corpuscular Volume 101.8 fL (80.0-94.0); Mean Platelet Volume 10.5 fL (7.4-10.4); Nucleated Red Blood Cells % 0 % (-); Platelet Count 261 10^3/uL (130-400); Red Blood Cell Count 2.81 10^6/uL (4.70-6.10); Red Cell Dist. Width 15.7 % (11.5-14.5); White Blood Cell Count 6.1 10^3/uL (4.8-10.8)
[2024-02-08 12:19] LABS: Blood Urea Nitrogen 15 mg/dl (9-20); Calcium 9.2 mg/dl (8.4-10.2); Carbon Dioxide 28 mmol/L (22-30); Chloride 107 mmol/L (98-107); Glucose 91 mg/dl (70-99); Potassium 4.1 mmol/L (3.5-5.1); Sodium 145 mmol/L (135-145); eGFR > 60.00
== END ==
LOC: OLABN 10:11
PROVIDERS: ATTENDING PHYSICIAN Family Medicine
DX: Z86.73 Personal history of transient ischemic attack (TIA), and cerebral infarction without residual deficits (principal); I69.351 Hemiplegia and hemiparesis following cerebral infarction affecting right dominant side; G47.33 Obstructive sleep apnea (adult) (pediatric); K57.92 Diverticulitis of intestine, part unspecified, without perforation or abscess without bleeding; I10 Essential (primary) hypertension; I48.0 Paroxysmal atrial fibrillation; M62.81 Muscle weakness (generalized); G93.41 Metabolic encephalopathy; B95.2 Enterococcus as the cause of diseases classified elsewhere; B96.5 Pseudomonas (aeruginosa) (mallei) (pseudomallei) as the cause of diseases classified elsewhere
CPT/HCPCS: 36415; 80048; 85025

== ENCOUNTER → 2024-02-13 18:32 | Outpatient (REF) | payer OTHER, MEDICARE, SELFPAY ==
[2024-02-13 19:16] LABS: % Basophils 0.3 % (0-2); % Eosinophils 0.9 % (0-6); % Immature Granulocytes 0.3 % (0-0.5); % Monocytes 9.5 % (1.7-9.3); Absolute Eosinophils 0.1 10^3/uL (0-0.7); Absolute Lymphocytes 1.5 10^3/uL (1.2-3.4); Absolute Monocytes 0.9 10^3/uL (0.1-0.6); Absolute Neutrophils 7.3 10^3/uL (1.4-6.5); Hematocrit 31.3 % (39.0-52.0); Hemoglobin 9.7 g/dL (13.0-18.0); Mean Corpuscular Hgb 30.1 pg (27.0-31.0); Mean Corpuscular Volume 97.2 fL (80.0-94.0); Mean Platelet Volume 10.9 fL (7.4-10.4); Nucleated Red Blood Cells % 0 % (-); Platelet Count 303 10^3/uL (130-400); Red Blood Cell Count 3.22 10^6/uL (4.70-6.10); Red Cell Dist. Width 15.7 % (11.5-14.5); White Blood Cell Count 9.9 10^3/uL (4.8-10.8)
[2024-02-13 19:31] LABS: Blood Urea Nitrogen 21 mg/dl (9-20); Calcium 9.6 mg/dl (8.4-10.2); Carbon Dioxide 25 mmol/L (22-30); Chloride 102 mmol/L (98-107); Glucose 122 mg/dl (70-99); Potassium 4.5 mmol/L (3.5-5.1); Sodium 140 mmol/L (135-145); eGFR > 60.00
== END ==
LOC: OLABP 18:32
PROVIDERS: ATTENDING PHYSICIAN Family Medicine
DX: G93.41 Metabolic encephalopathy (principal); B96.5 Pseudomonas (aeruginosa) (mallei) (pseudomallei) as the cause of diseases classified elsewhere
CPT/HCPCS: 36415; 80048; 85025

== ENCOUNTER 2024-02-13 19:53 | Emergency (ER) | payer OTHER, MEDICARE, SELFPAY ==
[2024-02-13 20:01] VITALS: BP 136/82
[2024-02-13 20:04] VITALS: BP 136/82
[2024-02-13 20:26] LABS: % Basophils 0.5 % (0-2); % Eosinophils 1.3 % (0-6); % Immature Granulocytes 0.3 % (0-0.5); % Lymphocytes 17.5 % (20.5-51.1); % Monocytes 10.8 % (1.7-9.3); % Neutrophils 69.6 % (42.2-75.2); Absolute Eosinophils 0.1 10^3/uL (0-0.7); Absolute Lymphocytes 1.5 10^3/uL (1.2-3.4); Absolute Monocytes 0.9 10^3/uL (0.1-0.6); Hematocrit 30.7 % (39.0-52.0); Mean Corp Hgb Conc. 32.6 g/dL (33.0-37.0); Mean Corpuscular Hgb 30.9 pg (27.0-31.0); Mean Corpuscular Volume 94.8 fL (80.0-94.0); Mean Platelet Volume 10.4 fL (7.4-10.4); Nucleated Red Blood Cells % 0 % (-); Platelet Count 291 10^3/uL (130-400); Red Blood Cell Count 3.24 10^6/uL (4.70-6.10); Red Cell Dist. Width 15.6 % (11.5-14.5); White Blood Cell Count 8.6 10^3/uL (4.8-10.8)
[2024-02-13 21:00] VITALS: BP 143/78
[2024-02-13 21:02] LABS: COVID-19 Antigen Negative (Negative)
[2024-02-13 21:52] LABS: Blood Urea Nitrogen 24 mg/dl (9-20); Calcium 9.7 mg/dl (8.4-10.2); Carbon Dioxide 28 mmol/L (22-30); Chloride 100 mmol/L (98-107); Glucose 103 mg/dl (70-99); Sodium 141 mmol/L (135-145); eGFR > 60.00
--- NOTE | 2024-02-13 23:30 | ED.GENMED ---
History of Present Illness
General
Chief Complaint: Cough
Source: patient and spouse
Exam Limitations: none
Time Seen by Provider: 02/13/24 20:11
History of Present Illness
History of Present Illness:
83-year-old male who presents from [facility] after an outpatient chest x-ray showed a possible mass. The patient has had a mild cough for few days and today may have had a fever as per his . The patient is evaluated for concerning metastatic
cancer. He has a host of medical conditions as noted by his . Patient on my evaluation states he does not feel too bad at all. No vomiting. No hemoptysis.
Past History
Past History
ED Past Medical History: Arrthythmia (atrial flutter/fibrillation.), CVA (2011), HTN, Hypothyroidism, Psychiatric and Other (Sleep apnea. PE, history of a mini stroke, frequent urination, diverticulosis, arthritis, appeared vision, anemia, frequent
blood transfusions, influenza)
ED Past Surgical History: Orthopedic (Total Knee surgery bilaterally), Tonsilectomy and Other (shirley filter placement; herniorrhapy)
Social History
Tobacco: Non-smoker
Alcohol: Occasional
Drug: None
Personal:
Living: with family
Employment: Retired
Family History
Family History: Other (Family history negative for coronary artery disease, arrhythmia or stroke.); Negative CAD
Phy Exam
Physical Exam
Physical Exam:
CONSTITUTIONAL Patient alert and oriented to person, place and time. Well-appearing. Vital signs reviewed.
HEAD atraumatic, normocephalic.
EYES eyelids normal to inspection, Extraocular muscles intact, Conjunctiva normal, Sclera normal.
NECK normal range of motion, Trachea midline, no jugular venous distention.
RESPIRATORY CHEST No respiratory distress noted, Chest expansion equal, scattered crackles at the base
CARDIOVASCULAR regular rate and rhythm, Heart sounds normal.
UPPER EXTREMITY range of motion normal, Motor strength normal, no cyanosis, no edema.
LOWER EXTREMITY range of motion normal, Motor strength normal, no cyanosis, bilateral edema with calcaneal wounds bilaterally with no surrounding redness..
NEURO Speech normal, No focal motor deficits, Chapin coma scale 15, Memory normal, Cranial Nerves intact to screening exam.
SKIN skin warm, dry, and normal in color.
Course
Orders/Labs/Results
Orders:
Orders
02/13/24 20:06
Basic Metabolic Panel Urgent
Complete Blood Count/With Diff Urgent
02/13/24 20:39
COVID-19 Antigen Urgent
Source: Nasal Swab
02/13/24 20:40
CT Chest W/o Iv Contrast Urgent
Comment:
Reason For Exam: fever, ? mass on outpt cxr
Abnormal Lab Results
02/13/24
20:06
RBC 3.24 L 10^6/uL
(4.70-6.10)
Hgb 10.0 L g/dL
(13.0-18.0)
Hct 30.7 L %
(39.0-52.0)
MCV 94.8 H fL
(80.0-94.0)
MCHC 32.6 L g/dL
(33.0-37.0)
RDW 15.6 H %
(11.5-14.5)
Absolute Monos (auto) 0.9 H 10^3/uL
(0.1-0.6)
Lymphocytes % 17.5 L %
(20.5-51.1)
Monocytes % 10.8 H %
(1.7-9.3)
BUN 24 H mg/dl
(9-20)
Glucose 103 H mg/dl
(70-99)
02/13/24 20:06
02/13/24 20:06
Vital Signs
Initial and Last Documented VS:
Initial Vital Signs
Pulse Resp
80 14
02/13/24 20:00 02/13/24 20:00
Last Documented Vital Signs
Temp Pulse Resp BP Pulse Ox
97.8 F 79 22 143/78 99
02/13/24 20:01 02/13/24 23:15 02/13/24 23:15 02/13/24 21:00 02/13/24 23:15
MDM/Problems Addressed
MDM/Problems Addressed:
Groundglass opacity, osseous metastatic lesions of the thoracic spine
*Radiology
Radiology exam reviewed: radiology read reviewed
*Pulse Oximetry
Patient hypoxic: no
*Critical Care Note
Total Time (30-74mins, 75-104mins- exclusive of procedures): Not Applicable
Data Reviewed
Source: patient and family
Patient Management
Escalation/DeEscalation of care consider admission/obs:
Considered admission but patient is quite stable. Pulse ox normal. I do feel treating him with some antibiotics may be warranted given his chronic medical conditions. Otherwise okay for outpatient management. Does have planned follow-up with
oncology
ED Attending Note
-
Portions of this chart may have been created with voice recognition software.� Occasional wrong word or��sound alike� substitutions may have occurred due to the inherent limitations of voice recognition software.
Discharge Plan
Departure
Patient Disposition: Home (Routine Discharge)
Date of Disposition: 02/14/24
Time of Disposition: 00:27
Patient with high blood pressure during this ER visit?: Yes
Discharge Problem:
Cough, Metastatic cancer
Instructions: Cough, Adult (DC), BLOOD PRESSURE
Prescriptions:
New
doxycycline monohydrate 100 mg capsule
100 mg PO BID Qty: 20 0RF
No Action
Glucosamine Sulf-Chondroitin 1 EACH capsule
1 cap PO NOON
atorvastatin 10 MG tablet
10 mg PO DAILY@1999
omega [id number]-fish oil 900-1,400 mg Capsule,Delayed Release(Dr/Ec)
1 cap PO NOON Qty: 0
Eliquis 5 MG tablet
5 mg PO BID
levothyroxine 75 MCG tablet
37.5 mcg PO DAILY@0700 0RF
sotalol 80 MG tablet
80 mg PO BID 0RF
vitamin B complex Tablet
1 tab PO NOON
finasteride 5 mg Tablet
5 mg PO DAILY Qty: 0 0RF
nifedipine 30 mg Tablet Extended Release 24hr
60 mg PO DAILY@0700
therapeutic multivitamin Tablet
1 tab PO NOON
acetaminophen [Tylenol Extra Strength] 500 mg Tablet
1,000 mg PO Q6HPRN PRN (Reason: mild pain)
methenamine hippurate [Hiprex] 1 gram Tablet
1 g PO DAILY
docusate sodium [Colace] 100 mg Capsule
100 mg PO BIDPRN PRN (Reason: constipation)
polyethylene glycol 3350 17 gram powder in packet
17 g PO DAILYPRN PRN (Reason: constipation)
Metamucil 3.4 gram/5.4 gram Powder
1 - 2 tbsp PO BIDPRN PRN (Reason: constipation)
bicalutamide 50 mg Tablet
50 mg PO DAILY 30 Days Qty: 30 0RF
acetaminophen 325 mg Tablet
650 mg PO Q4HPRN PRN (Reason: mild pain/fever>100)
trazodone 50 mg Tablet
50 mg PO HS
tramadol 50 mg Tablet
50 mg PO Q6HPRN PRN (Reason: moderate pain)
magnesium hydroxide [Milk of Magnesia] 400 mg/5 mL Suspension
30 ml PO DAILYPRN PRN (Reason: if no bm on day 4)
bisacodyl [Dulcolax (bisacodyl)] 10 mg Suppository
10 mg MS DAILYPRN PRN (Reason: if mom ineffective/give on day 5 of no bm)
divalproex 500 mg Tablet Extended Release 24 Hr
500 mg PO HS
Fleet Enema 19-7 gram/118 mL Enema
118 ml MS DAILYPRN PRN (Reason: if dulcolax ineffective/give on day 6 of no bm)
Referrals:
Burton Mensah MD [Family Provider] -
Activity Restrictions/Additional Instructions:
Sclerotic lesions to the thoracic spine (T5, T8 and T11) concerning for metastatic disease
Please see your doctor in the next 2 days for follow-up and reevaluation. Return immediately for worsening symptoms, difficulty breathing, fevers or any other concerns.
Interventions
Interventions:
*Risk Screen - Suicide Last Done: 02/13/24 20:03
*General Assessment Last Done: 02/13/24 20:02
*Neglect/Abuse Screening Last Done: 02/13/24 20:03
ED- Fall Risk Assessment Last Done: 02/13/24 20:03
ED- Pulmonary Assessment Last Done: 02/13/24 20:04
Discharge Date and Time
Print Language: PARAGUAYAN
[2024-02-14 00:48] VITALS: BP 160/70
[2024-02-14] MEDS: VIBRAMYCIN 100 MG PO (00:49)
[2024-02-14 01:00] VITALS: BP 143/66
[2024-02-14 02:00] VITALS: BP 158/63
[2024-02-14 03:00] VITALS: BP 137/73
[2024-02-14 04:00] VITALS: BP 153/66
== END 2024-02-14 04:20 | disposition home or self-care (01) ==
LOC: EMR 19:53
PROVIDERS: Emergency Medicine; EMERGENCY PHYSICIAN Emergency Medicine; FAMILY PHYSICIAN Family Medicine
DX: R05.9 Cough, unspecified (principal); C79.51 Secondary malignant neoplasm of bone; I48.91 Unspecified atrial fibrillation; I10 Essential (primary) hypertension; E03.9 Hypothyroidism, unspecified; G47.30 Sleep apnea, unspecified; Z86.73 Personal history of transient ischemic attack (TIA), and cerebral infarction without residual deficits
CPT/HCPCS: 99284; 71250; 80048; 85025; 87811

== ENCOUNTER → 2024-02-15 10:56 | Outpatient (REF) | payer OTHER, MEDICARE, SELFPAY ==
[2024-02-15 12:22] LABS: % Basophils 0.5 % (0-2); % Immature Granulocytes 0.3 % (0-0.5); % Lymphocytes 18.4 % (20.5-51.1); % Neutrophils 69.8 % (42.2-75.2); Absolute Eosinophils 0.2 10^3/uL (0-0.7); Absolute Lymphocytes 1.2 10^3/uL (1.2-3.4); Absolute Monocytes 0.5 10^3/uL (0.1-0.6); Absolute Neutrophils 4.6 10^3/uL (1.4-6.5); Hematocrit 30.1 % (39.0-52.0); Hemoglobin 9.4 g/dL (13.0-18.0); Mean Corp Hgb Conc. 31.2 g/dL (33.0-37.0); Mean Corpuscular Volume 96.2 fL (80.0-94.0); Mean Platelet Volume 10.4 fL (7.4-10.4); Nucleated Red Blood Cells % 0 % (-); Platelet Count 284 10^3/uL (130-400); Red Blood Cell Count 3.13 10^6/uL (4.70-6.10); Red Cell Dist. Width 15.7 % (11.5-14.5); White Blood Cell Count 6.6 10^3/uL (4.8-10.8)
[2024-02-15 12:39] LABS: ALT (SGPT) < 10 U/L (0-50); AST (SGOT) 26 U/L (17-59); Albumin 3.8 g/dl (3.5-5.0); Alkaline Phosphatase 117 U/L (38-126); Direct Bilirubin 0.4 mg/dl (0.0-0.4); Total Bilirubin 0.6 mg/dl (0.2-1.3); Total Protein 6.6 g/dl (6.3-8.2)
== END ==
LOC: OIDL 10:56
PROVIDERS: ATTENDING PHYSICIAN Internal Medicine Hematology & Oncology
DX: D46.9 Myelodysplastic syndrome, unspecified (principal); C61 Malignant neoplasm of prostate; C79.51 Secondary malignant neoplasm of bone
CPT/HCPCS: 80076; 84153; 85025

== ENCOUNTER → 2024-02-20 12:14 | Outpatient (REF) | payer OTHER, MEDICARE, SELFPAY ==
[2024-02-20 13:13] LABS: % Basophils 0.3 % (0-2); % Eosinophils 2.8 % (0-6); % Immature Granulocytes 0.5 % (0-0.5); % Lymphocytes 23.5 % (20.5-51.1); % Monocytes 11.7 % (1.7-9.3); % Neutrophils 61.2 % (42.2-75.2); Absolute Eosinophils 0.2 10^3/uL (0-0.7); Absolute Lymphocytes 1.5 10^3/uL (1.2-3.4); Absolute Monocytes 0.8 10^3/uL (0.1-0.6); Absolute Neutrophils 3.9 10^3/uL (1.4-6.5); Hematocrit 27.7 % (39.0-52.0); Hemoglobin 8.7 g/dL (13.0-18.0); Mean Corp Hgb Conc. 31.4 g/dL (33.0-37.0); Mean Corpuscular Volume 95.5 fL (80.0-94.0); Mean Platelet Volume 10.4 fL (7.4-10.4); Nucleated Red Blood Cells % 0 % (-); Platelet Count 253 10^3/uL (130-400); Red Cell Dist. Width 15.4 % (11.5-14.5); White Blood Cell Count 6.4 10^3/uL (4.8-10.8)
[2024-02-20 13:20] LABS: Blood Urea Nitrogen 10 mg/dl (9-20); Calcium 9.3 mg/dl (8.4-10.2); Carbon Dioxide 29 mmol/L (22-30); Chloride 99 mmol/L (98-107); Glucose 82 mg/dl (70-99); Potassium 3.9 mmol/L (3.5-5.1); Sodium 138 mmol/L (135-145); eGFR > 60.00
[2024-02-20 13:39] LABS: Free T4 1.67 ng/dl (0.78-2.19)
[2024-02-20 13:53] LABS: TSH 0.21 uIU/ml (0.47-4.68)
== END ==
LOC: OLABP 12:14
PROVIDERS: ATTENDING PHYSICIAN Family Medicine
DX: Z86.73 Personal history of transient ischemic attack (TIA), and cerebral infarction without residual deficits (principal); I69.351 Hemiplegia and hemiparesis following cerebral infarction affecting right dominant side; G47.33 Obstructive sleep apnea (adult) (pediatric); K57.92 Diverticulitis of intestine, part unspecified, without perforation or abscess without bleeding; B95.2 Enterococcus as the cause of diseases classified elsewhere; I10 Essential (primary) hypertension; I48.0 Paroxysmal atrial fibrillation; M62.81 Muscle weakness (generalized); G93.41 Metabolic encephalopathy; B96.5 Pseudomonas (aeruginosa) (mallei) (pseudomallei) as the cause of diseases classified elsewhere
CPT/HCPCS: 36415; 80048; 84439; 84443; 85025